=== PATIENT | male | born 1945 | race Caucasian/White ===

== ENCOUNTER 2016-08-01 10:21 | Outpatient (CLI) | payer MEDICARE, OTHER | END 2016-08-01 10:22 | disposition home or self-care (01) | DX: K50.114 Crohn's disease of large intestine with abscess (principal) ==

== ENCOUNTER 2016-09-05 10:44 | Outpatient (CLI) | payer MEDICARE, OTHER | END 2016-09-05 10:45 | disposition home or self-care (01) | DX: K50.90 Crohn's disease, unspecified, without complications (principal) ==

== ENCOUNTER 2016-09-11 09:49 | Emergency (ER) | payer MEDICARE, OTHER | END 2016-09-11 17:30 | disposition home or self-care (01) | DX: R06.00 Dyspnea, unspecified (principal); R07.9 Chest pain, unspecified; M79.622 Pain in left upper arm; R03.0 Elevated blood-pressure reading, without diagnosis of hypertension; J45.909 Unspecified asthma, uncomplicated; K50.90 Crohn's disease, unspecified, without complications; Z79.82 Long term (current) use of aspirin ==

== ENCOUNTER 2016-09-24 09:16 | Day surgery (SDC) | payer MEDICARE, OTHER ==
[2016-09-24] MEDS ORDERED: LACTATED RINGERS 1,000 ML IV ONE ×2 (09:21→10:38)
[2016-09-24] MEDS ORDERED: SIMETHICONE 40 MG/0.6 ML 30 ML BOTTLE PO ONE (10:38)
[2016-09-24] MEDS ORDERED: MIDAZOLAM 2 MG/2 ML VIAL IVP ONE (11:40)
[2016-09-24] MEDS ORDERED: fentaNYL 100 MCG PATCH TOP ONE (11:40)
== END 2016-09-24 09:17 | disposition home or self-care (01) ==
PROC: 0DBE8ZX Excision of Large Intestine, Via Natural or Artificial Opening Endoscopic, Diagnostic (ICD-10-PCS; principal; 2016-09-24 10:30)
DX: K52.89 Other specified noninfective gastroenteritis and colitis (principal); K63.3 Ulcer of intestine; K57.30 Diverticulosis of large intestine without perforation or abscess without bleeding; Z86.010 Personal history of colon polyps
CPT/HCPCS: 45380; A9270; J7120

== ENCOUNTER 2016-10-01 12:33 | Outpatient (CLI) | payer MEDICARE, OTHER | END 2016-10-01 12:34 | disposition home or self-care (01) | DX: R06.00 Dyspnea, unspecified (principal) ==

== ENCOUNTER 2016-12-12 11:24 | Outpatient (CLI) | payer MEDICARE, OTHER ==
[2016-12-12 11:57] LABS: BASOPHILS % (AUTO) 0.3 %; EOSINOPHILS # (AUTO) 0.3 10^3/uL (0.0-0.7); EOSINOPHILS % (AUTO) 3.5 %; HCT - HEMATOCRIT 38.2 % (42.0-52.0); HGB - HEMOGLOBIN 12.9 g/dL (14.0-18.0); LYMPHOCYTES # (AUTO) 2.6 10^3/uL (1.5-3.5); MEAN CORPUSCULAR HEMOGLOBIN 31.1 pg (27.0-31.0); MEAN CORPUSCULAR HGB CONC 33.8 g/dL (32.0-36.0); MEAN CORPUSCULAR VOLUME 92.1 fL (80.0-94.0); MEAN PLATELET VOLUME 8.5 fL (7.4-11.4); MONOCYTES % (AUTO) 13.1 %; NEUTROPHILS # (AUTO) 3.6 10^3/uL (1.5-6.6); NEUTROPHILS % (AUTO) 48.1 %; RED BLOOD COUNT 4.15 10^6/uL (4.70-6.10); RED CELL DISTRIBUTION WIDTH 15.6 % (12.0-15.0); UNCORRECTED WHITE BLOOD COUNT 7.4 x10^3/uL; WHITE BLOOD COUNT 7.4 x10^3/uL (4.8-10.8)
[2016-12-12 12:12] LABS: ALBUMIN/GLOBULIN RATIO 1.2 (1.0-2.2); BILIRUBIN,TOTAL 0.7 mg/dL (0.2-1.0); BUN - BLOOD UREA NITROGEN 24 mg/dL (6-20); CARBON DIOXIDE - CO2 28 mmol/L (21-32); CHLORIDE 104 mmol/L (101-111); GFR - MDRD 73 (>89); GLUCOSE 84 mg/dL (70-100); POTASSIUM 4.5 mmol/L (3.5-5.0); SODIUM 140 mmol/L (135-145); TOTAL PROTEIN 7.6 g/dL (6.7-8.2)
== END 2016-12-12 11:25 | disposition home or self-care (01) ==
LOC: LAB 11:24
PROVIDERS: ATTEND Internal Medicine
DX: K50.114 Crohn's disease of large intestine with abscess (principal)
CPT/HCPCS: 36415; 80053; 85025; 85651; 86140

== ENCOUNTER 2017-01-19 15:51 | Outpatient (CLI) | payer MEDICARE, OTHER ==
[2017-01-19 16:25] LABS: BASOPHILS % (AUTO) 0.3 %; EOSINOPHILS # (AUTO) 0.3 10^3/uL (0.0-0.7); EOSINOPHILS % (AUTO) 4.3 %; HCT - HEMATOCRIT 36.1 % (42.0-52.0); HGB - HEMOGLOBIN 12.1 g/dL (14.0-18.0); LYMPHOCYTES # (AUTO) 2.3 10^3/uL (1.5-3.5); LYMPHOCYTES % (AUTO) 30.7 %; MEAN CORPUSCULAR HEMOGLOBIN 31.6 pg (27.0-31.0); MEAN CORPUSCULAR HGB CONC 33.5 g/dL (32.0-36.0); MEAN CORPUSCULAR VOLUME 94.4 fL (80.0-94.0); MEAN PLATELET VOLUME 7.3 fL (7.4-11.4); MONOCYTES # (AUTO) 1.1 10^3/uL (0.0-1.0); MONOCYTES % (AUTO) 14.6 %; NEUTROPHILS # (AUTO) 3.8 10^3/uL (1.5-6.6); NEUTROPHILS % (AUTO) 50.1 %; NUCLEATED RED BLOOD CELLS AUTO 0.1 /100WBC; RED BLOOD COUNT 3.83 10^6/uL (4.70-6.10); RED CELL DISTRIBUTION WIDTH 17.6 % (12.0-15.0); UNCORRECTED WHITE BLOOD COUNT 7.6 x10^3/uL; WHITE BLOOD COUNT 7.6 x10^3/uL (4.8-10.8)
[2017-01-19 17:07] LABS: ALBUMIN/GLOBULIN RATIO 1.1 (1.0-2.2); BILIRUBIN,TOTAL 0.6 mg/dL (0.2-1.0); BUN - BLOOD UREA NITROGEN 21 mg/dL (6-20); CALCIUM 9.4 mg/dL (8.5-10.3); CARBON DIOXIDE - CO2 25 mmol/L (21-32); CHLORIDE 104 mmol/L (101-111); GFR - MDRD 73 (>89); GLUCOSE 103 mg/dL (70-100); POTASSIUM 3.9 mmol/L (3.5-5.0); SODIUM 137 mmol/L (135-145); TOTAL PROTEIN 6.8 g/dL (6.7-8.2)
== END 2017-01-19 15:52 | disposition home or self-care (01) ==
LOC: LAB 15:51
PROVIDERS: ATTEND Internal Medicine
DX: K50.114 Crohn's disease of large intestine with abscess (principal)
CPT/HCPCS: 36415; 80053; 85025; 85651; 86140

== ENCOUNTER 2017-02-23 18:18 | Emergency (ER) | payer MEDICARE, OTHER ==
[2017-02-23 19:10] LABS: BASOPHILS # (AUTO) 0.1 10^3/uL (0.0-0.1); BASOPHILS % (AUTO) 1.1 %; EOSINOPHILS # (AUTO) 0.3 10^3/uL (0.0-0.7); EOSINOPHILS % (AUTO) 3.7 %; HCT - HEMATOCRIT 36.9 % (42.0-52.0); HGB - HEMOGLOBIN 12.2 g/dL (14.0-18.0); LYMPHOCYTES # (AUTO) 2.3 10^3/uL (1.5-3.5); LYMPHOCYTES % (AUTO) 29.7 %; MEAN CORPUSCULAR HGB CONC 33.1 g/dL (32.0-36.0); MEAN CORPUSCULAR VOLUME 96.8 fL (80.0-94.0); MONOCYTES # (AUTO) 1.2 10^3/uL (0.0-1.0); MONOCYTES % (AUTO) 15.6 %; NEUTROPHILS # (AUTO) 3.9 10^3/uL (1.5-6.6); NEUTROPHILS % (AUTO) 49.9 %; RED BLOOD COUNT 3.82 10^6/uL (4.70-6.10); RED CELL DISTRIBUTION WIDTH 16.9 % (12.0-15.0); UNCORRECTED WHITE BLOOD COUNT 7.8 x10^3/uL; WHITE BLOOD COUNT 7.8 x10^3/uL (4.8-10.8)
[2017-02-23 19:18] LABS: PT - PROTHROMBIN TIME 11.3 secs (9.9-12.6)
[2017-02-23 19:22] LABS: BILIRUBIN,TOTAL 0.5 mg/dL (0.2-1.0); CALCIUM 9.7 mg/dL (8.5-10.3); CREATININE 1.1 mg/dL (0.6-1.2); POTASSIUM 3.9 mmol/L (3.5-5.0); TOTAL PROTEIN 7.4 g/dL (6.7-8.2)
--- NOTE | 2017-02-23 19:24 | ED Physician Documentation ---
PD HPI ABD PAIN - Stated complaint Stated Complaint: MALE - Chief complaint Chief Complaint: Abd Pain - History obtained from History obtained from: Patient, Family () - History of Present Illness Timing - onset: Other (71 yo with long H/O chrons dz. Abscess with partial colectomy in the past. Last c-scope 09/24/16 with scattered small ulcers. Today with single episode of BRBPR after some burning L abd pain. He does feel weak/ dizzy today. Has had bad rxn to steroid in the past. His GI is [facility] at and Dr Rodriguez at [facility].) Review of Systems Constitutional: reports: Reviewed and negative Nose: reports: Reviewed and negative Throat: reports: Reviewed and negative GI: reports: Abdominal Pain, Bloody / black stool. denies: Nausea, Vomiting, Constipation, Diarrhea PD PAST MEDICAL HISTORY - Past Medical History Cardiovascular: High cholesterol Respiratory: Asthma Neuro: None Endocrine/Autoimmune: None GI: GERD, Crohn's disease : None HEENT: None Psych: None Musculoskeletal: None Derm: Psoriasis - Past Surgical History Past Surgical History: Yes General: Appendectomy, Bowel surgery, Colonoscopy Ortho: Shoulder arthroplasty, Arthroscopic surgery - Present Medications Home Medications: Ambulatory Orders Medication Instructions Recorded Confirmed Cholecalciferol (Vitamin D3) 1,000 unit PO BID 11/26/12 02/23/17 [Vitamin D] Multivitamin [Multi-Day Vitamins] 1 tab PO DAILY 11/26/12 02/23/17 Ascorbate Calcium/Bioflavonoid 2 tab PO DAILY 07/03/15 02/23/17 [Janet-C 1,000 mg Tablet] Fexofenadine HCl [Ml Allergy] 180 mg PO DAILY PRN 07/03/15 02/23/17 Folic Acid 1 mg PO DAILY 07/03/15 02/23/17 Magnesium Oxide [Magnesium] 750 mg PO BID 07/03/15 02/23/17 [place]-3/Dha/Epa/Fish Oil [Fish Oil 2 cap PO DAILY 07/03/15 02/23/17 1,000 mg Softgel] Certolizumab Pegol [Cimzia] 200 mg SQ Q14D 01/25/16 02/23/17 Methotrexate 5 mg PO Q3D 03/21/16 02/23/17 Aspirin [Aspir-Low] 81 mg PO DAILY PM 06/12/16 02/23/17 raNITIdine [Zantac] 150 mg PO BID #60 tablet 09/11/16 02/23/17 Dm/PE/Acetaminophen/Doxylamine 240 ml PO ONCE 09/23/16 02/23/17 [Tylenol Cold M-S Nighttime Liq] Mesalamine [Delzicol] 1,200 mg PO BID 02/23/17 02/23/17 - Allergies Allergies/Adverse Reactions: Allergies Allergy/AdvReac Type Severity Reaction Status Date / Time hydrocodone [Hydrocodone] Allergy Hives Verified 02/23/17 18:32 Sulfa (Sulfonamide Allergy Hives Verified 02/23/17 18:32 Antibiotics) hydromorphone HCl * AdvReac Respiratory Verified 02/23/17 18:32 [From Dilaudid] simvastatin AdvReac weakness, Verified 02/23/17 18:32 can't walk - Social History Does the pt smoke?: No Smoking Status: Never smoker Does the pt drink ETOH?: No Does the pt have substance abuse?: No - Immunizations Immunizations are current?: Yes - POLST Patient has POLST: Yes PD ED PE NORMAL - Vitals Vital signs reviewed: Yes - General General: Alert and oriented X 3, No acute distress - Abdomen Abdomen: Normal bowel sounds, Soft, Non tender - Neuro Neuro: Alert and oriented X 3, Normal speech - Psych Psych: Normal mood, Normal affect Results - Vitals Vitals: Vital Signs - 24 hr 02/23/17 02/23/17 18:27 19:23 Temperature 36.9 C Heart Rate 91 86 Respiratory 19 16 Rate Blood Pressure 141/84 H 177/85 H O2 Saturation 95 96 Oxygen O2 Source Room air - Labs Labs: Laboratory Tests 02/23/17 02/23/17 02/23/17 18:55 18:55 18:55 WBC 7.8 RBC 3.82 L Hgb 12.2 L Hct 36.9 L MCV 96.8 H MCH 32.0 H MCHC 33.1 RDW 16.9 H Plt Count 344 MPV 7.0 L Neut # 3.9 Lymph # 2.3 [place] # 1.2 H Eos # 0.3 Baso # 0.1 Absolute Nucleated RBC 0.00 Nucleated RBCs 0.0 PT 11.3 INR 1.0 Sodium 138 Potassium 3.9 Chloride 102 Carbon Dioxide 26 Anion Gap 10.0 BUN 23 H Creatinine 1.1 Estimated GFR (MDRD) 66 L Glucose 95 Calcium 9.7 Total Bilirubin 0.5 AST 24 ALT 25 Alkaline Phosphatase 42 Total Protein 7.4 Albumin 3.7 Globulin 3.7 Albumin/Globulin Ratio 1.0 Lipase 27 Blood Type Antibody Screen 02/23/17 18:55 WBC RBC Hgb Hct MCV MCH MCHC RDW Plt Count MPV Neut # Lymph # [place] # Eos # Baso # Absolute Nucleated RBC Nucleated RBCs PT INR Sodium Potassium Chloride Carbon Dioxide Anion Gap BUN Creatinine Estimated GFR (MDRD) Glucose Calcium Total Bilirubin AST ALT Alkaline Phosphatase Total Protein Albumin Globulin Albumin/Globulin Ratio Lipase Blood Type O POSITIVE Antibody Screen NEGATIVE PD MEDICAL DECISION MAKING - ED course ED course: 71-year-old with with history of Crohn's presents after single large episode of hematochezia, he was hemodynamically stable. His H&H is at his baseline. Case discussed by phone with Dr. Kain Chand at [facility], on-call for his graves registration specialist who felt it was more likely to be a diverticular bleed than ulcer, recommended discharge at this time given hemodynamic stability and stable H&H but he is to return for further bleeding. Patient was comfortable with the plan, he was offered observation for serial H&H which he declined. Departure - Departure Disposition: 01 Home, Self Care Clinical Impression: Lower GI bleed Condition: Good Record reviewed to determine appropriate education?: Yes Instructions: ED Hematochezia Stable Comments: Return for further bleeding. Otherwise follow-up with your graves registration specialist at your earliest convenience. Your blood pressure was elevated today on check into the emergency department. This does not mean that you have hypertension, it is a common phenomenon to come to the emergency department and have elevated blood pressure. I recommend that she see her primary care physician within the week to have it rechecked when you are feeling better.
[2017-02-23 20:27] VITALS: BP 161/67
== END 2017-02-23 20:44 | disposition home or self-care (01) ==
LOC: ED 18:18
DX: K92.1 Melena (principal); R03.0 Elevated blood-pressure reading, without diagnosis of hypertension; K50.90 Crohn's disease, unspecified, without complications; K21.9 Gastro-esophageal reflux disease without esophagitis; E78.00 Pure hypercholesterolemia, unspecified; J45.909 Unspecified asthma, uncomplicated; Z79.82 Long term (current) use of aspirin
CPT/HCPCS: 36415; 80053; 83690; 85025; 85610; 86850; 86900; 86901; 99283

== ENCOUNTER 2017-02-26 10:30 | Outpatient (CLI) | payer MEDICARE, OTHER ==
[2017-02-26 11:27] LABS: BASOPHILS % (AUTO) 1.3 %; EOSINOPHILS % (AUTO) 3.4 %; HCT - HEMATOCRIT 34.3 % (42.0-52.0); HGB - HEMOGLOBIN 11.5 g/dL (14.0-18.0); MEAN CORPUSCULAR HEMOGLOBIN 32.1 pg (27.0-31.0); MEAN CORPUSCULAR HGB CONC 33.4 g/dL (32.0-36.0); MEAN CORPUSCULAR VOLUME 96.1 fL (80.0-94.0); MONOCYTES % (AUTO) 18.1 %; NEUTROPHILS % (AUTO) 52.2 %; RED BLOOD COUNT 3.57 10^6/uL (4.70-6.10); RED CELL DISTRIBUTION WIDTH 16.9 % (12.0-15.0); UNCORRECTED WHITE BLOOD COUNT 8.4 x10^3/uL; WHITE BLOOD COUNT 7.8 x10^3/uL (4.8-10.8)
[2017-02-26 11:34] LABS: BILIRUBIN,TOTAL 0.5 mg/dL (0.2-1.0); CALCIUM 9.4 mg/dL (8.5-10.3); CREATININE 1.1 mg/dL (0.6-1.2); POTASSIUM 4.3 mmol/L (3.5-5.0); TOTAL PROTEIN 6.9 g/dL (6.7-8.2)
[2017-02-26 12:08] LABS: BAND NEUTROPHILS % (MANUAL) 1 %; BASOPHILS % (MANUAL) 1 %; EOSINOPHILS % (MANUAL) 3 %; LYMPHOCYTES % (MANUAL) 28 %; NEUTROPHILS % (MANUAL) 52 %; TOTAL CELLS COUNTED 100
[2017-02-26 12:09] LABS: NP AUTO DIFFERENTIAL? YES; NP MAN DIFFERENTIAL? NO
[2017-02-27 13:16] LABS: HEPATITIS A AB TOTAL(IMMUNITY) NON-REACTIVE (NON-REACTIVE)
[2017-02-27 14:17] LABS: TEST RESULT REPORT (())
== END 2017-02-26 10:31 | disposition home or self-care (01) ==
LOC: LAB 10:30
PROVIDERS: ATTEND Internal Medicine
DX: K50.90 Crohn's disease, unspecified, without complications (principal)
CPT/HCPCS: 36415; 80053; 81599; 85025; 85651; 86140; 86317; 86704; 86705; 86708

== ENCOUNTER 2017-04-01 12:59 | Day surgery (SDC) | payer MEDICARE, OTHER ==
[2017-04-01] MEDS ORDERED: LACTATED RINGERS 1,000 ML IV ONE ×2 (13:11→15:12)
[2017-04-01] MEDS ORDERED: fentaNYL 100 MCG/2 ML VIAL IVP ONE (14:45)
[2017-04-01] MEDS ORDERED: MIDAZOLAM 2 MG/2 ML VIAL IVP ONE (14:45)
--- NOTE | 2017-04-01 16:01 | PROCEDURE REPORT ---
DATE OF PROCEDURE: 04/01/2017 00:00:00 PROCEDURE PERFORMED: Colonoscopy. ENDOSCOPIST: Maranda Foote MD PRIMARY CARE PHYSICIAN: Vidal Varela MD INDICATION: Complicated Crohn disease status post transverse colon resection and with history of GI bleeding felt to be from out of control Crohn disease. Currently on Cimzia and methotrexate and mesalamine. PREMEDICATIONS: Fentanyl 100 mcg, Versed 3 mg IV titration. DESCRIPTION OF PROCEDURE: After informed consent was obtained, the patient was placed in the left lateral decubitus position. Video colonoscope was placed in the rectum, slowly advanced to the cecum. On slow withdrawal, mucosa was carefully examined. The scope was removed. The patient tolerated the procedure well. BLOOD LOSS: None. COMPLICATIONS: None. FINDINGS: Superficial ulceration present at the IC valve. There were also deep ulcerations from the anastomosis that appeared to be at [address] to 25 cm. This included a 20cm long, deep ulceration the entire length. Scattered ulcerations were present from 25 cm to the rectum. The right colon and proximal transverse colon were relatively spared. No biopsies were taken. The patient has still not [facility] [employer]. He is to do this immediately and call me in 1-2 weeks so we can talk about changing his medications. JOB #: [id number] EXT JOB #:[id number] MTDD
[2017-04-01 16:06] VITALS: BP 144/77
== END 2017-04-01 13:00 | disposition home or self-care (01) ==
LOC: SDS 12:59
PROVIDERS: ATTEND Internal Medicine Gastroenterology
PROC: 0DJD8ZZ Inspection of Lower Intestinal Tract, Via Natural or Artificial Opening Endoscopic (ICD-10-PCS; principal; 2017-04-01 14:00)
DX: K63.3 Ulcer of intestine (principal); Z98.0 Intestinal bypass and anastomosis status; K50.919 Crohn's disease, unspecified, with unspecified complications; Z79.899 Other long term (current) drug therapy; J45.909 Unspecified asthma, uncomplicated; L40.9 Psoriasis, unspecified
CPT/HCPCS: 45378; J7120

== ENCOUNTER 2017-04-03 10:34 | Outpatient (CLI) | payer MEDICARE, OTHER ==
[2017-04-03 11:01] LABS: BASOPHILS # (AUTO) 0.1 10^3/uL (0.0-0.1); BASOPHILS % (AUTO) 1.2 %; EOSINOPHILS # (AUTO) 0.3 10^3/uL (0.0-0.7); EOSINOPHILS % (AUTO) 3.9 %; HCT - HEMATOCRIT 35.3 % (42.0-52.0); HGB - HEMOGLOBIN 11.9 g/dL (14.0-18.0); LYMPHOCYTES # (AUTO) 2.1 10^3/uL (1.5-3.5); LYMPHOCYTES % (AUTO) 26.3 %; MEAN CORPUSCULAR HEMOGLOBIN 31.9 pg (27.0-31.0); MEAN CORPUSCULAR HGB CONC 33.7 g/dL (32.0-36.0); MEAN CORPUSCULAR VOLUME 94.9 fL (80.0-94.0); MEAN PLATELET VOLUME 6.9 fL (7.4-11.4); MONOCYTES # (AUTO) 1.1 10^3/uL (0.0-1.0); MONOCYTES % (AUTO) 14.6 %; NEUTROPHILS # (AUTO) 4.2 10^3/uL (1.5-6.6); RED BLOOD COUNT 3.72 10^6/uL (4.70-6.10); RED CELL DISTRIBUTION WIDTH 16.7 % (12.0-15.0); UNCORRECTED WHITE BLOOD COUNT 7.8 x10^3/uL; WHITE BLOOD COUNT 7.8 x10^3/uL (4.8-10.8)
[2017-04-03 11:19] LABS: ALBUMIN/GLOBULIN RATIO 1.1 (1.0-2.2); BILIRUBIN,TOTAL 0.5 mg/dL (0.2-1.0); BUN - BLOOD UREA NITROGEN 14 mg/dL (6-20); CALCIUM 9.8 mg/dL (8.5-10.3); CARBON DIOXIDE - CO2 25 mmol/L (21-32); CHLORIDE 103 mmol/L (101-111); GFR - MDRD 73 (>89); GLUCOSE 110 mg/dL (70-100); SODIUM 136 mmol/L (135-145)
== END 2017-04-03 10:35 | disposition home or self-care (01) ==
LOC: LAB 10:34
PROVIDERS: ATTEND Internal Medicine
DX: K50.90 Crohn's disease, unspecified, without complications (principal)
CPT/HCPCS: 36415; 80053; 85025; 85651; 86140

== ENCOUNTER 2017-06-02 22:05 | Observation (INO) | payer MEDICARE, OTHER ==
[2017-06-02] MEDS ORDERED: SODIUM CHLORIDE 0.9% 1,000 ML IV ONE (22:22)
[2017-06-02 22:44] LABS: BASOPHILS # (AUTO) 0.1 10^3/uL (0.0-0.1); BASOPHILS % (AUTO) 0.5 %; EOSINOPHILS # (AUTO) 0.4 10^3/uL (0.0-0.7); EOSINOPHILS % (AUTO) 4.1 %; HCT - HEMATOCRIT 32.5 % (42.0-52.0); HGB - HEMOGLOBIN 10.7 g/dL (14.0-18.0); LYMPHOCYTES # (AUTO) 2.8 10^3/uL (1.5-3.5); LYMPHOCYTES % (AUTO) 29.2 %; MEAN CORPUSCULAR HEMOGLOBIN 31.6 pg (27.0-31.0); MEAN CORPUSCULAR VOLUME 95.7 fL (80.0-94.0); MEAN PLATELET VOLUME 7.4 fL (7.4-11.4); MONOCYTES # (AUTO) 1.3 10^3/uL (0.0-1.0); MONOCYTES % (AUTO) 13.6 %; NEUTROPHILS % (AUTO) 52.6 %; RED CELL DISTRIBUTION WIDTH 17.5 % (12.0-15.0); UNCORRECTED WHITE BLOOD COUNT 9.4 x10^3/uL; WHITE BLOOD COUNT 9.4 x10^3/uL (4.8-10.8)
[2017-06-02 22:57] LABS: ALBUMIN/GLOBULIN RATIO 0.9 (1.0-2.2); BILIRUBIN,TOTAL 0.4 mg/dL (0.2-1.0); CREATININE 1.3 mg/dL (0.6-1.2); MAGNESIUM 2.3 mg/dL (1.7-2.8); POTASSIUM 4.2 mmol/L (3.5-5.0); TOTAL PROTEIN 6.8 g/dL (6.7-8.2)
--- NOTE | 2017-06-02 23:17 | ED Physician Documentation ---
PD HPI GI BLEED - Stated complaint Stated Complaint: GI BLEED - Chief complaint Chief Complaint: Abd Pain - History obtained from History obtained from: Patient, Family - History of Present Illness Timing - onset: Enter time (2029), Today Timing - duration: Minutes Timing - details: Abrupt onset, Still present Associated symptoms: BRBPR Contributing factors: Other (chrons disease) Improved by: Laying still Similar symptoms before: Diagnosis (lower GI bleeding from chrons disease) Recently seen: Other ([facility] for stelara) - Additional information Additional information: This 71-year-old male has a 17 year history of Crohn's disease complicated by a transverse colon resection and abscess as well as GI bleeding, Has developed acute bleeding this evening and he has had 3 episodes of bright red blood per rectum. He has no pain associated with this and the bleeding is more than what he had back in January of this year. He indicates that he has had episodes of bleeding 4 times. He has had to be admitted to [facility] for observation once and to [facility] where he required transfusion and transfer to [facility]. He was seen earlier this year in January for GI bleeding with an episode of 1 bleed his counts were baseline and he had no further bleeding. He refused admission at that time. Today he is more concerned in that he has had 3 episodes of bleeding and he feels weak. He has been stable on Humira for years and recently this is stopped working and 3 days ago he had his first infusion of Stelara. He had his last scoping done here in mid March. Review of Systems Constitutional: reports: Fatigue. denies: Fever, Chills, Myalgias Eyes: denies: Decreased vision Ears: denies: Ear pain Nose: denies: Congestion Throat: denies: Sore throat Cardiac: denies: Chest pain / pressure, Palpitations Respiratory: denies: Dyspnea, Cough GI: reports: Bloody / black stool. denies: Abdominal Pain, Nausea, Vomiting, Constipation, Diarrhea : denies: Dysuria, Frequency Skin: denies: Rash Neurologic: reports: Generalized weakness. denies: Focal weakness, Numbness PD PAST MEDICAL HISTORY - Past Medical History Past Medical History: Yes Cardiovascular: High cholesterol Respiratory: Asthma Neuro: None Endocrine/Autoimmune: None GI: GI bleed, Crohn's disease : None HEENT: None Psych: None Musculoskeletal: None Derm: Psoriasis - Past Surgical History Past Surgical History: Yes General: Appendectomy, Bowel surgery, Colonoscopy Ortho: Shoulder arthroplasty, Arthroscopic surgery - Present Medications Home Medications: Ambulatory Orders Medication Instructions Recorded Confirmed Multivitamin [Multi-Day Vitamins] 1 tab PO DAILY 11/26/12 06/02/17 Ascorbate Calcium/Bioflavonoid 2,000 mg PO DAILY 07/03/15 05/29/17 [Janet-C 1,000 mg Tablet] Fexofenadine HCl [Ml Allergy] 180 mg PO DAILY PRN 07/03/15 06/02/17 Folic Acid 800 mcg PO DAILY 07/03/15 06/02/17 Magnesium Oxide [Magnesium] 1 tab PO BID 07/03/15 06/02/17 [place]-3/Dha/Epa/Fish Oil [Fish Oil 2 cap PO DAILY 07/03/15 06/02/17 1,000 mg Softgel] Methotrexate 2.5 mg PO Q3D 03/21/16 06/02/17 Aspirin [Aspir-Low] 81 mg PO DAILY PM 06/12/16 06/02/17 Certolizumab [Cimzia] 200 mg SUBQ ONCE 05/29/17 06/02/17 Chlorpheniramine Maleate [Allergy 4 mg PO DAILY 05/29/17 06/02/17 4-Hour] L. Acidophilus/Pectin, [place] 2 each PO BID 05/29/17 06/02/17 [Acidophilus Capsule] Phenylephrine HCl [Nasal 10 mg PO BID 05/29/17 06/02/17 Decongestant PE] B12/Levomefolate Calcium/B-6 1 each PO DAILY 06/02/17 06/02/17 [Foltx Tablet] Calcium Carbonate [Tums (Calcium 500 mg PO QID 06/02/17 06/02/17 Carbonate 500mg)] D3/Folic Acid/Collagen,Hydroly 1,000 units PO BID 06/02/17 06/02/17 [Cyfolex Capsule] Mesalamine [Asacol Hd] 400 mg PO Q6HR 06/02/17 06/02/17 Potassium Gluconate 595 mg PO BID 06/02/17 06/02/17 raNITIdine [Zantac] 150 mg PO DAILY 06/02/17 06/02/17 - Allergies Allergies/Adverse Reactions: Allergies Allergy/AdvReac Type Severity Reaction Status Date / Time hydrocodone [Hydrocodone] Allergy Hives Verified 06/02/17 22:19 Sulfa (Sulfonamide Allergy Hives Verified 06/02/17 22:19 Antibiotics) hydromorphone HCl * AdvReac Respiratory Verified 06/02/17 22:19 [From Dilaudid] simvastatin AdvReac weakness, Verified 06/02/17 22:19 can't walk - Social History Does the pt smoke?: No Smoking Status: Never smoker Does the pt drink ETOH?: No Does the pt have substance abuse?: No - Immunizations Immunizations are current?: Yes - POLST Patient has POLST: No PD ED PE NORMAL - Vitals Vital signs reviewed: Yes (hypertensive) - General General: Alert and oriented X 3, No acute distress, Well developed/nourished, Other (pale appearing ) - HEENT HEENT: Atraumatic, PERRL, EOMI - Neck Neck: Supple, no meningeal sign - Cardiac Cardiac: RRR, No murmur - Respiratory Respiratory: No respiratory distress, Clear bilaterally - Abdomen Abdomen: Soft, Non tender, Other (borgorigmy is present) - Back Back: No CVA TTP, No spinal TTP - Derm Derm: Warm and dry, No rash, Other (pale ) - Neuro Neuro: Alert and oriented X 3, No motor deficit, No sensory deficit, Normal speech Eye Opening: Spontaneous Motor: Obeys Commands Verbal: Oriented GCS Score: 15 - Psych Psych: Normal mood, Normal affect Results - Vitals Vitals: Vital Signs - 24 hr 06/02/17 06/02/17 06/03/17 22:15 23:52 01:12 Temperature 36.2 C L Heart Rate 88 76 82 Respiratory 16 20 17 Rate Blood Pressure 162/77 H 123/67 146/74 H O2 Saturation 96 97 94 Oxygen O2 Source Room air - Labs Labs: Laboratory Tests 06/02/17 06/02/17 06/02/17 22:24 22:24 22:24 WBC 9.4 RBC 3.40 L Hgb 10.7 L Hct 32.5 L MCV 95.7 H MCH 31.6 H MCHC 33.0 RDW 17.5 H Plt Count 346 MPV 7.4 Neut # 5.0 Lymph # 2.8 [place] # 1.3 H Eos # 0.4 Baso # 0.1 Absolute Nucleated RBC 0.00 Nucleated RBC % 0.0 Sodium 137 Potassium 4.2 Chloride 103 Carbon Dioxide 24 Anion Gap 10.0 BUN 28 H Creatinine 1.3 H Estimated GFR (MDRD) 54 L Glucose 139 H Calcium 9.0 Magnesium 2.3 Total Bilirubin 0.4 AST 24 ALT 16 Alkaline Phosphatase 39 L Total Protein 6.8 Albumin 3.3 Globulin 3.5 Albumin/Globulin Ratio 0.9 L Lipase 25 Blood Type O POSITIVE Antibody Screen NEGATIVE Crossmatch IS Only See Detail PD MEDICAL DECISION MAKING - ED course Complexity details: reviewed old records, reviewed results, re-evaluated patient , considered differential, d/w patient, d/w family ED course: 71-year-old male with a history of Crohn's disease who has had prior GI bleeding has another GI bleed and his hematocrit today is 32.5 which was close to his baseline but about 3 points under.Today he is amenable to admission to the hospital. Departure - Departure Disposition: ED Place in Observation Clinical Impression: Lower GI bleed Crohns disease Qualifiers: Gastrointestinal tract location: unspecified location Digestive disease complication type: with rectal bleeding Qualified Code(s): K50.911 - Crohn's disease, unspecified, with rectal bleeding Discharge Date/Time: 06/03/17 02:10
[2017-06-03] MEDS ORDERED: ZOLPIDEM 5 MG TABLET PO PRN (01:46)
[2017-06-03] MEDS ORDERED: ONDANSETRON 4 MG/2 ML VIAL IVP PRN (01:46)
[2017-06-03] MEDS ORDERED: FEXOFENADINE 60 MG TABLET PO PRN (01:51)
[2017-06-03] MEDS: LACTATED RINGERS 500 ML IV SCH ×2 (03:00→11:22)
[2017-06-03] MEDS: SODIUM CHLORIDE FLUSH 0.9% 10 ML SYRINGE IVP PRN ×2 (03:09→06:23)
[2017-06-03] MEDS ORDERED: MESALAMINE 400 MG CAPSULE PO SCH (06:00)
[2017-06-03] MEDS: SODIUM CHLORIDE FLUSH 0.9% 10 ML SYRINGE IVP SCH ×2 (06:16→14:54)
[2017-06-03 06:27] LABS: HCT - HEMATOCRIT 29.4 % (42.0-52.0); HGB - HEMOGLOBIN 9.9 g/dL (14.0-18.0); MEAN CORPUSCULAR HEMOGLOBIN 32.3 pg (27.0-31.0); MEAN CORPUSCULAR HGB CONC 33.5 g/dL (32.0-36.0); MEAN CORPUSCULAR VOLUME 96.5 fL (80.0-94.0); MEAN PLATELET VOLUME 6.9 fL (7.4-11.4); RED BLOOD COUNT 3.05 10^6/uL (4.70-6.10); RED CELL DISTRIBUTION WIDTH 17.6 % (12.0-15.0); WHITE BLOOD COUNT 8.2 x10^3/uL (4.8-10.8)
[2017-06-03 06:33] LABS: PT - PROTHROMBIN TIME 11.8 secs (9.9-12.6)
[2017-06-03 06:38] LABS: CALCIUM 8.7 mg/dL (8.5-10.3); POTASSIUM 4.1 mmol/L (3.5-5.0)
--- NOTE | 2017-06-03 06:52 | HISTORY & PHYSICAL EXAMINATION ---
DATE OF OBSERVATION: 06/03/2017. CHIEF COMPLAINT: Bright red blood per rectum. HISTORY OF PRESENT ILLNESS: The patient is a 71-year-old white male with longstanding history of Crohn disease, which is usually not well controlled. The patient had multiple bleeding episodes in the past, underwent several colonoscopies, the last one being in 03/2017. The colonoscopy at that time showed large areas of ulcerations in the colon. The patient also reports that he had been on multiple medications. Initially, he was on Remicade and methotrexate. Subsequently, was also on Entyvio and most recently on Cimzia. His disease had not been well controlled. Therefore, 4 days prior to current presentation, he actually was started on Stelara. It is also notable that he underwent bowel resection back in 1999. The patient was brought into the ER by his after he developed GI bleed on the evening of 06/02. The patient was a good historian and described eating dinner around 8 p.m., after which he went to the bathroom and had a small amount of bleeding, passed bright red blood. Subsequently, he had another episode at 9 p.m. and then at 10 p.m. and after the third bleeding episode, he asked his to bring him to the ER. The patient reports that he had similar episodes in the past and sometimes the bleeding self-resolved. However, he also had an episode back in 06/2015, at which time he had a more severe GI bleed and required 5 units of blood transfusion. Upon presentation to the ER, the patient was hemodynamically stable. His blood pressure was 160/70, heart rate in the 80s, respiratory rate was 16, oxygen saturation 96% on room air, temperature 36.2 Celsius. Laboratory showed hemoglobin of 10.7, hematocrit 32.5. Notably, the patient's baseline hemoglobin is between 11-12. In addition, there was new renal failure with a BUN of 28 and creatinine of 1.3. Notably, the patient's baseline creatinine is around 1. In the ER, the patient was not observed with further bleeding episodes. REVIEW OF SYMPTOMS: The patient denied fever. He also denied nausea or vomiting. Regarding abdominal pain, he does have chronic right lower quadrant abdominal discomfort, but reported no recent change. Due to his Crohn disease, he has mild diarrhea and it is not unusual for him to have loose stools with a couple of bowel movements daily. However, he had no recent change in his bowel habits except after 8 p.m. on 06/02 when he started to pass frequent bowel movements with fresh red blood per rectum. On complete 12-point review, there was no additional complaint. PAST MEDICAL HISTORY 1. Longstanding Crohn disease. Please see details listed in the history of present illness. 2. History of neutrophilic dermatosis/Sweet syndrome. 3. Right proximal humerus fracture. 4. Arthritis. 5. Allergic sinusitis. 6. Gastroesophageal reflux. 7. Osteoporosis. 8. History of squamous cell carcinoma/skin cancer, status post excision. 9. Immunocompromised status due to using multiple biologic agents and immunosuppressants for Crohn disease. 10. History of gastrointestinal bleed secondary to Crohn disease. Last colonoscopy was in 03/2017. Primary care physician is Dr. Varela. Motor Bike Mechanic is Dr. Rodriguez at [facility]. OUTPATIENT MEDICATIONS Reviewed per electronic medical record included 1. Ml. 2. Cholestyramine. 3. Fish oil. 4. Acidophilus. 5. Tums. 6. Ranitidine. 7. Magnesium supplements. 8. Potassium gluconate. 9. Multivitamin. 10. B12. 11. Folic acid. 12. Aspirin. 13. Phenylephrine. 14. Vitamin D. 15. Mesalamine. 16. Methotrexate. 17. Vitamin C. ALLERGIES: MULTIPLE ALLERGIES REVIEWED PER ELECTRONIC MEDICAL RECORD. SOCIAL HISTORY: The patient does not smoke. He is retired. He does not drink alcohol. CODE STATUS: FULL CODE. PHYSICAL EXAMINATION VITAL SIGNS: Listed above at history of present illness. GENERAL: The patient is a well-developed male who was not in distress. HEENT: Mild pallor, no jaundice. RESPIRATORY: Clear to auscultation bilaterally without wheezes or crackles. No increased work of breathing. CVS: S1, S2. Regular. No pathologic murmur. ABDOMEN: Slightly distended, nontender, benign. Bowel tones active. LYMPH: No lymphedema. MUSCULOSKELETAL: Atraumatic. NEUROLOGIC: Alert, oriented, nonfocal. PSYCH: Cooperative. ASSESSMENT AND PLAN: The patient is a 71-year-old male with history of complicated Crohn disease, which has not responded well to different therapeutic agents. I think it is safe to say that the patient is likely experiencing a Crohn's flare. Notably, there was recent colonoscopy, which did show extensive inflammatory changes and ulcers throughout the colon. Subsequently, medication change was already done by the patient's security operations center operator and Stelara was started a few days prior to admission. Today , he presents with bright red blood per rectum, which is likely secondary to colonic ulcers and underlying Crohn disease. The GI bleed does not seem hemodynamically significant as the patient remains hemodynamically stable. He does have worsening anemia, however, compared to his baseline blood counts. Additional issue on admission is mild acute renal failure, creatinine increased by 30% from baseline of 1 to 1.3. PLAN AND ORDERS: The patient is getting admitted under observation status. Notably, he experienced no further bleeding episodes during the ER stay, and there are good chances that the bleeding will be self-resolved. To complete the workup, I will order an ESR and coagulation studies, INR. We will follow blood counts and repeat laboratories in the morning. To make sure that this patient is not developing some infectious issue, given his immunocompromised status, I added stool studies including stool culture, C difficile to the workup. Placed a nursing order to keep a stool chart, recording frequencies, amount of blood, diarrhea and amount. For now, the patient does not need transfusion. He will be monitored on telemetry. He will be kept n.p.o. and receive IV hydration overnight. The case was discussed between the ER physician and the covering surgeon. Dr. Norris will be available to do a colonoscopy if needed. However, the patient told me that he would prefer to postpone or avoid colonoscopy if no further bleeding episode happens. Regarding medications, I will continue mesalamine, methotrexate and Stelara could be continued as well. Regarding possible use of steroid, that could be considered as well. However, until stool culture returned, I would probably hold off to steroid use. Likely the daytime physician could discuss with the covering security operations center operator whether they would recommend using a short steroid course. Although the patient is having lower GI bleed, just for safety I will order proton pump inhibitor as well. Deep venous thrombosis prophylaxis with Venodyne boots. FULL CODE. Time spent in the care of this patient was 60 minutes. JOB #: [id number] EXT JOB #:[id number] ADDENDUM: C diff returned positive; treatment plan was adjusted accordingly. JOSSUED
[2017-06-03] MEDS ORDERED: PANTOPRAZOLE 40 MG VIAL IVP SCH (07:00)
[2017-06-03] MEDS: metroNIDAZOLE 500 MG/100 ML 500 MG/100 ML BAG IV SCH ×2 (07:06→12:04)
[2017-06-03] MEDS ORDERED: FOLIC ACID PO SCH (09:00)
[2017-06-03] MEDS ORDERED: FOLIC ACID 1 MG TABLET PO SCH (09:00)
[2017-06-03] MEDS ORDERED: COLLAGEN HYDROLY PO SCH (09:00)
[2017-06-03] MEDS ORDERED: D3 PO SCH (09:00)
[2017-06-03] MEDS ORDERED: MULTIVITAMIN TABLET PO SCH (09:00)
[2017-06-03] MEDS ORDERED: METHOTREXATE 2.5 MG TABLET PO SCH (09:00)
[2017-06-03] MEDS: VANCOMYCIN 125 MG CAPSULE PO SCH ×2 (09:21→14:54)
--- NOTE | 2017-06-03 15:32 | Discharge Plan ---
Discharge Plan Disposition: 01 Home, Self Care Condition: Fair Prescriptions: metroNIDAZOLE [Flagyl] 250 mg PO QID #52 tablet Saccharomyces Boulardii [Florastor] 250 mg PO BID #26 capsule Vancomycin [Vancocin] 250 mg PO QID #52 capsule Diet: Soft ([place] diet, liquids, and advance as diarrhea subsides to your usual diet Avoid dairy products for 2 weeks, except yogurt is OK even now) Activity Restrictions: Activity as Tolerated Shower Restrictions: No Driving Restrictions: No Instruction Topics: Clostridium Difficile Infec Additional Instructions or Follow Up instructions: Contact your Primary Care Provider or Orthopedist if the shoulder problem persists See your doctor in approx. 2 weeks for follow-up after this hospitalization No Smoking: If you smoke, Please STOP! Call for help. Follow-up with: Cali Fernández MD [Primary Care Provider] -
[2017-06-03 16:16] VITALS: BP 133/69
[2017-06-03] MEDS ORDERED: SACCHAROMYCES BOULARDII 250 MG CAPSULE PO SCH (17:00)
--- NOTE | 2017-06-16 09:16 | DISCHARGE SUMMARY ---
DATE OF ADMISSION: 06/03/2017 DATE OF DISCHARGE: 06/03/2017 PLEASE REVIEW BLANK - CANNOT DISCERN/VERIFY IF ZANTAC 150 VS 250 HOSPITAL COURSE: This is a 71-year-old white male with a history of Crohn disease with many flare-ups , lower GI bleeding which was felt to be from his Crohn disease, history of Sweet syndrome (neutrophi lic dermatosis), arthritis, allergic sinusitis, squamous cell CA of the skin, and immunocompromised s tatus due to several immunosuppressants for his Crohn disease. The patient presented with an episode of GI bleeding. He was placed in admission to follow his hemoglobin and evaluate for other causes of heme-positive stools. PROBLEMS 1. Clostridium difficile colitis with diarrhea. His stool sample returned positive for C difficile, a nd he was started on vancomycin and Flagyl p.o. and was discharged with these medications. There were no further episodes of any GI bleeding or difference in his normal stool pattern, and he did not und ergo a colonoscopy here. His last colonoscopy was just 2 months previously, which did show active ulc erations and inflammation consistent with his Crohn disease. 2. Lower gastrointestinal bleed. This is a recurrent presentation for this gentleman. Hemoglobin was stable on the following day, he required no blood transfusions, and his lower GI bleeding subsided. 3. Immunocompromised status. The patient has been on Remicade, methotrexate, Entyvio, and Cimzia, and then 4 days prior to presentation, he was started on Stelara. He was discharged on his same medicati ons. No steroids were begun here. CONDITION AT DISCHARGE: Fair. The patient was still experiencing loose bowel movements, unlike what h e occasionally gets with his Crohn disease. PHYSICAL EXAMINATION AT DISCHARGE VITAL SIGNS: Blood pressure 134/60, pulse 87, sinus rhythm, afebrile. Room air saturation 97%. HEENT: Unremarkable with moist oral mucosa. NECK: Supple, without JVD. CHEST: Clear. CARDIOVASCULAR: Heart sounds normal. ABDOMEN: Soft and mildly tender in both lower quadrants but no guarding or rebound. EXTREMITIES: Without edema. NEUROLOGIC: Neurologically intact. LABORATORY DATA AND IMAGING: Reviewed and as above. MEDICATIONS AT DISCHARGE 1. Tylenol p.r.n. pain. 2. Bioflavinoids 2000 mg p.o. daily. 3. Calcium carbonate 500 mg p.o. q.i.d. 4. Cimzia 200 mg subcutaneously every 2 weeks. 5. Chlorpheniramine maleate p.r.n. allergies. 6. Vitamin D3 at 2000 units daily. 7. Vitamin B12 at 2000 mcg daily. 8. Ml 180 mg daily p.r.n. allergic flare-up. 9. Folic acid 800 mcg p.o. daily. 10. Acidophilus 2 tablets p.o. b.i.d. 11. Magnesium 4 tablets p.o. daily. 12. Delzicol 1600 mg p.o. b.i.d. 13. Flagyl 250 mg p.o. q.i.d. 14. Multivitamin daily. 15. [place] 3 one capsule daily. 16. Nasal decongestant p.r.n. 17. Potassium gluconate 595 mg p.o. b.i.d. 18. Zantac mg p.o. b.i.d. 19. Florastor 250 mg p.o. b.i.d. 20. Vancomycin 250 mg p.o. q.i.d. ALLERGIES 1. HYDROCODONE. 2. SULFA. 3. DILAUDID. 4. SIMVASTATIN. FOLLOWUP: With his PCP and fundraising sale representative. TIME REQUIRED FOR COMPLETION OF THIS DISCHARGE: 30 minutes. JOB #: [id number] EXT JOB #:[id number]
== END 2017-06-03 16:25 | disposition home or self-care (01) ==
LOC: ED 22:05 → OBS 06-03 01:47
PROVIDERS: ADMIT Internal Medicine; ATTEND Internal Medicine
DX: A04.72 Enterocolitis due to Clostridium difficile, not specified as recurrent (principal); K50.111 Crohn's disease of large intestine with rectal bleeding; N17.9 Acute kidney failure, unspecified; D50.0 Iron deficiency anemia secondary to blood loss (chronic); L98.2 Febrile neutrophilic dermatosis [Sweet]; M19.90 Unspecified osteoarthritis, unspecified site; K21.9 Gastro-esophageal reflux disease without esophagitis; J30.9 Allergic rhinitis, unspecified; M81.0 Age-related osteoporosis without current pathological fracture; Z79.899 Other long term (current) drug therapy; Z85.828 Personal history of other malignant neoplasm of skin
CPT/HCPCS: 36415; 80048; 80053; 83690; 83735; 85025; 85027; 85610; 85651; 86850; 86900; 86901; 86920; 87045; 87046; 87493; 96361; 96365; 96366; 96375; 99283; 99285; A9270; G0378; J7120; J8499; 99284

== ENCOUNTER 2017-06-19 08:00 | Outpatient (CLI) | payer MEDICARE, OTHER | END 2017-06-19 08:01 | disposition home or self-care (01) | LOC: LAB.R 08:00 | PROVIDERS: ATTEND Internal Medicine | DX: K50.90 Crohn's disease, unspecified, without complications (principal) | CPT/HCPCS: 87493 ==

== ENCOUNTER 2017-06-29 14:58 | Outpatient (CLI) | payer MEDICARE, OTHER | END 2017-06-29 14:59 | disposition home or self-care (01) | LOC: LAB.R 14:58 | PROVIDERS: ATTEND Internal Medicine | DX: K50.90 Crohn's disease, unspecified, without complications (principal) | CPT/HCPCS: 83993 ==

== ENCOUNTER 2017-07-03 14:09 | Outpatient (CLI) | payer MEDICARE, OTHER ==
[2017-07-03 14:29] LABS: BASOPHILS # (AUTO) 0.1 10^3/uL (0.0-0.1); BASOPHILS % (AUTO) 1.2 %; EOSINOPHILS # (AUTO) 0.4 10^3/uL (0.0-0.7); EOSINOPHILS % (AUTO) 3.9 %; HCT - HEMATOCRIT 30.7 % (42.0-52.0); HGB - HEMOGLOBIN 10.2 g/dL (14.0-18.0); LYMPHOCYTES # (AUTO) 2.2 10^3/uL (1.5-3.5); MEAN CORPUSCULAR HEMOGLOBIN 30.1 pg (27.0-31.0); MEAN CORPUSCULAR HGB CONC 33.3 g/dL (32.0-36.0); MEAN CORPUSCULAR VOLUME 90.3 fL (80.0-94.0); MONOCYTES # (AUTO) 1.2 10^3/uL (0.0-1.0); MONOCYTES % (AUTO) 11.2 %; NEUTROPHILS # (AUTO) 6.7 10^3/uL (1.5-6.6); NEUTROPHILS % (AUTO) 62.7 %; RED CELL DISTRIBUTION WIDTH 17.5 % (12.0-15.0); UNCORRECTED WHITE BLOOD COUNT 10.7 x10^3/uL; WHITE BLOOD COUNT 10.7 x10^3/uL (4.8-10.8)
[2017-07-03 14:56] LABS: ALBUMIN/GLOBULIN RATIO 0.7 (1.0-2.2); BILIRUBIN,TOTAL 0.4 mg/dL (0.2-1.0); POTASSIUM 4.3 mmol/L (3.5-5.0); TOTAL PROTEIN 7.8 g/dL (6.7-8.2)
[2017-07-03 15:01] LABS: IRON 12 ug/dL (45-182); TOTAL IRON BINDING CAPACITY 417 ug/dL (250-450); TRANSFERRIN 298 mg/dL (180-329)
== END 2017-07-03 14:10 | disposition home or self-care (01) ==
LOC: LAB 14:09
PROVIDERS: ATTEND Internal Medicine
DX: K50.90 Crohn's disease, unspecified, without complications (principal); K92.2 Gastrointestinal hemorrhage, unspecified
CPT/HCPCS: 36415; 80053; 82728; 83540; 84466; 85025; 85651

== ENCOUNTER 2017-08-04 08:00 | Outpatient (CLI) | payer MEDICARE, OTHER | END 2017-08-04 08:01 | disposition home or self-care (01) | LOC: LAB.R 08:00 | PROVIDERS: ATTEND Internal Medicine | DX: K50.90 Crohn's disease, unspecified, without complications (principal) | CPT/HCPCS: 83993; 87493 ==

== ENCOUNTER 2017-08-18 14:24 | Outpatient (CLI) | payer MEDICARE, OTHER ==
[2017-08-18 14:51] LABS: BASOPHILS # (AUTO) 0.2 10^3/uL (0.0-0.1); BASOPHILS % (AUTO) 1.8 %; EOSINOPHILS # (AUTO) 0.3 10^3/uL (0.0-0.7); EOSINOPHILS % (AUTO) 3.4 %; HGB - HEMOGLOBIN 10.9 g/dL (14.0-18.0); LYMPHOCYTES # (AUTO) 2.4 10^3/uL (1.5-3.5); LYMPHOCYTES % (AUTO) 25.8 %; MEAN CORPUSCULAR HEMOGLOBIN 28.4 pg (27.0-31.0); MEAN CORPUSCULAR HGB CONC 33.3 g/dL (32.0-36.0); MEAN CORPUSCULAR VOLUME 85.2 fL (80.0-94.0); MEAN PLATELET VOLUME 7.6 fL (7.4-11.4); MONOCYTES # (AUTO) 0.8 10^3/uL (0.0-1.0); MONOCYTES % (AUTO) 8.9 %; NEUTROPHILS # (AUTO) 5.7 10^3/uL (1.5-6.6); NEUTROPHILS % (AUTO) 60.1 %; PLT - PLATELET COUNT 341 10^3/uL (130-450); RED BLOOD COUNT 3.83 10^6/uL (4.70-6.10); RED CELL DISTRIBUTION WIDTH 17.5 % (12.0-15.0); WHITE BLOOD COUNT 9.4 x10^3/uL (4.8-10.8)
[2017-08-18 15:03] LABS: ALBUMIN 3.4 g/dL (3.2-5.5); ALBUMIN/GLOBULIN RATIO 0.8 (1.0-2.2); BILIRUBIN,TOTAL 0.5 mg/dL (0.2-1.0); CALCIUM 9.2 mg/dL (8.5-10.3); TOTAL PROTEIN 7.7 g/dL (6.7-8.2)
== END 2017-08-18 14:25 | disposition home or self-care (01) ==
LOC: LAB 14:24
PROVIDERS: ATTEND Internal Medicine
DX: K50.90 Crohn's disease, unspecified, without complications (principal)
CPT/HCPCS: 36415; 80053; 85025; 85651; 86140

== ENCOUNTER 2017-08-24 12:32 | Outpatient (CLI) | payer MEDICARE, OTHER ==
[~2017-08-24 12:32] MED LIST: GADOBUTROL 10 MMOL/10 ML VIAL ONE
[2017-08-24] MEDS ORDERED: GADOBUTROL 10 MMOL/10 ML VIAL IVP ONE (15:00)
--- NOTE | 2017-08-25 09:17 | MRI Report ---
EXAM: MR ABDOMEN AND PELVIS WITH AND WITHOUT CONTRAST EXAM DATE: 08/24/2017 02:58 PM. CLINICAL HISTORY: CROHNS, LOWER GI BLEED. History of bowel resection and abscess removal. COMPARISON: None. TECHNIQUE: Multiplanar breath-hold T1, T2, and (DWI )sequences obtained through the abdomen and pelvi s on an MR scanner. Images obtained before dynamic scan of the abdomen and pelvis after administratio n of 9 mL Gadavist intravenous contrast, using MR enterographic technique. FINDINGS: Lung Bases: The lung bases are clear. Liver: Diffuse fatty infiltration.. Gallbladder: The gallbladder is partially distended and appears normal with no wall thickening or sto ne. Pancreas: The pancreas appears normal with no mass or ductal dilatation. Spleen: The spleen appears normal. Kidneys and Adrenals: The kidneys appear normal with no mass or hydronephrosis. There are no cysts in the kidneys. The adrenals appear normal. GI Tract and Appendix: The small bowel and colon appear normal with no abnormal enhancement or thicke juan of the bowel wall or dilatation. The mucosal pattern of the duodenum, jejunum, and ileum is unre markable. The terminal ileum is normal. The appendix is not visualized. No abnormal enhancement, flui d collection, or adenopathy in the right lower abdomen. There is no mesenteric adenopathy, abnormal e nhancement, or fistula formation. The visualized rectum is unremarkable. Perianal region was not asse ssed. Retroperitoneum: The retroperitoneal structures appear normal with no mass or lymphadenopathy. Pelvic Organs: Unremarkable. IMPRESSION: Negative MR enterographic exam. [facility] Referring Provider Line: [phone] SITE ID: [id number]
== END 2017-08-24 12:33 | disposition home or self-care (01) ==
LOC: DI 12:32
PROVIDERS: ATTEND Internal Medicine Gastroenterology
DX: K50.90 Crohn's disease, unspecified, without complications (principal); K92.2 Gastrointestinal hemorrhage, unspecified
CPT/HCPCS: 72197; 74183; A9585

== ENCOUNTER 2017-10-22 14:00 | Outpatient (CLI) | payer MEDICARE, OTHER ==
[2017-10-22 14:37] LABS: ALBUMIN 3.7 g/dL (3.2-5.5); ALBUMIN/GLOBULIN RATIO 0.9 (1.0-2.2); ALKALINE PHOSPHATASE 64 IU/L (42-121); ALT ALANINE AMINOTRANSFERASE 39 IU/L (10-60); AST ASPARTATE AMINOTRANSFERASE 40 IU/L (10-42); BASOPHILS # (AUTO) 0.2 10^3/uL (0.0-0.1); BASOPHILS % (AUTO) 2.7 %; BILIRUBIN,TOTAL 0.7 mg/dL (0.2-1.0); BUN - BLOOD UREA NITROGEN 16 mg/dL (6-20); CALCIUM 9.7 mg/dL (8.5-10.3); CARBON DIOXIDE - CO2 26 mmol/L (21-32); CHLORIDE 102 mmol/L (101-111); CRP - C-REACTIVE PROTEIN < 1.0 mg/dL (0-1.0); EOSINOPHILS # (AUTO) 0.3 10^3/uL (0.0-0.7); EOSINOPHILS % (AUTO) 4.8 %; GFR - MDRD 73 (>89); GLUCOSE 136 mg/dL (70-100); HGB - HEMOGLOBIN 11.8 g/dL (14.0-18.0); LYMPHOCYTES # (AUTO) 1.5 10^3/uL (1.5-3.5); LYMPHOCYTES % (AUTO) 25.1 %; MEAN CORPUSCULAR HGB CONC 32.4 g/dL (32.0-36.0); MEAN CORPUSCULAR VOLUME 86.6 fL (80.0-94.0); MEAN PLATELET VOLUME 8.1 fL (7.4-11.4); MONOCYTES # (AUTO) 0.7 10^3/uL (0.0-1.0); MONOCYTES % (AUTO) 12.1 %; NEUTROPHILS # (AUTO) 3.2 10^3/uL (1.5-6.6); NEUTROPHILS % (AUTO) 55.3 %; PLT - PLATELET COUNT 384 10^3/uL (130-450); RED BLOOD COUNT 4.21 10^6/uL (4.70-6.10); RED CELL DISTRIBUTION WIDTH 18.9 % (12.0-15.0); SODIUM 134 mmol/L (135-145); TOTAL PROTEIN 7.6 g/dL (6.7-8.2); WHITE BLOOD COUNT 5.8 x10^3/uL (4.8-10.8)
== END 2017-10-22 14:01 | disposition home or self-care (01) ==
LOC: LAB 14:00
PROVIDERS: ATTEND Internal Medicine
DX: K50.114 Crohn's disease of large intestine with abscess (principal)
CPT/HCPCS: 36415; 80053; 85025; 85651; 86140

== ENCOUNTER 2017-10-25 09:55 | Outpatient (CLI) | payer MEDICARE, OTHER ==
[2017-10-26] MEDS ORDERED: GADOBUTROL 7.5 MMOL/7.5 ML VIAL ONE (12:10)
== END 2017-10-25 09:56 | disposition critical access hospital (66) ==
LOC: EMS 09:55
PROVIDERS: ATTEND Surgery
DX: R47.01 Aphasia (principal)
CPT/HCPCS: A0425; A0427

== ENCOUNTER 2017-10-25 10:06 | Observation (INO) | payer MEDICARE, OTHER ==
[2017-10-25] MEDS ORDERED: SODIUM CHLORIDE 0.9% 1,000 ML IV ONE (10:22)
--- NOTE | 2017-10-25 10:25 | ED Physician Documentation ---
PD HPI FOCAL NEURO - Stated complaint Stated Complaint: POSS STROKE - Chief complaint Chief Complaint: Neuro - History obtained from History obtained from: Patient, Family, EMS - History of Present Illness Timing - onset: Enter time (929), Today Timing - duration: Minutes Timing - details: Abrupt onset, Now resolved Severity of deficit: Moderate Weakness: No: Face, Arm, Hand, Leg, Foot, Right, Left Numbness: No: Face, Arm, Hand, Leg, Foot, Right, Left Associated symptoms: Headache. No: Nausea / vomiting, Seizure, Syncope, Fall, Head injury, Chest pain, Neck pain, Back pain, Fever Contributing factors: negative: Anticoagulated Baseline status: positive: A&OX3, ambulatory, indep Similar symptoms before: Has not had sx before Recently seen: Not recently seen - Additional information Additional information: 71-year-old male with a history of Crohn's disease was in his usual state of health this morning when he awoke again at about 8:00 and he was trying to talk to his at about 930 this morning when he was unable to get the words out. Medics who arrived and found him to have the speech difficulty described him as having an inability to form words. His attempt to say you can teach an old dog new tricks was difficult for the patient to perform and caused frustration. On arrival to the emergency department the patient appears to be answering questions appropriately with good articulation. He did have a headache about 40 minutes prior to the onset of his speech difficulty and he is not on anticoagulants. He has recently started Imuran which he believes has helped control his Crohn's disease. Review of Systems Constitutional: denies: Fever, Chills, Myalgias, Fatigue Eyes: denies: Decreased vision Ears: denies: Ear pain Nose: denies: Rhinorrhea / runny nose, Congestion Throat: denies: Sore throat Cardiac: denies: Chest pain / pressure, Palpitations Respiratory: denies: Dyspnea, Cough GI: denies: Abdominal Pain, Nausea, Vomiting, Constipation, Diarrhea : denies: Dysuria, Frequency Skin: denies: Rash Musculoskeletal: denies: Neck pain, Back pain, Extremity pain PD PAST MEDICAL HISTORY - Past Medical History Cardiovascular: High cholesterol Respiratory: Asthma Neuro: None Endocrine/Autoimmune: None GI: GI bleed, Crohn's disease : None HEENT: None Psych: None Musculoskeletal: None Derm: Psoriasis - Past Surgical History Past Surgical History: Yes General: Appendectomy, Bowel surgery, Colonoscopy Ortho: Shoulder arthroplasty, Arthroscopic surgery - Present Medications Home Medications: Ambulatory Orders Medication Instructions Recorded Confirmed Multivitamin [Multi-Day Vitamins] 1 tab PO DAILY 11/26/12 10/01/17 Ascorbate Calcium/Bioflavonoid 2,000 mg PO DAILY 07/03/15 10/01/17 [Janet-C 1,000 mg Tablet] Fexofenadine HCl [Ml Allergy] 180 mg PO DAILY PRN 07/03/15 10/01/17 Folic Acid 800 mcg PO DAILY 07/03/15 10/01/17 Magnesium Oxide [Magnesium] 4 - 5 tab PO DAILY 07/03/15 10/01/17 [place]-3/Dha/Epa/Fish Oil [Fish Oil 1 cap PO DAILY 07/03/15 10/01/17 1,000 mg Softgel] Chlorpheniramine Maleate [Allergy 4 mg PO BID 05/29/17 10/01/17 4-Hour] L. Acidophilus/Pectin, Sharp 2 each PO BID 05/29/17 10/01/17 [Acidophilus Capsule] Phenylephrine HCl [Nasal 10 mg PO BID PRN 05/29/17 10/01/17 Decongestant PE] Calcium Carbonate [Tums (Calcium 1,000 - 2,000 mg PO DAILY 06/02/17 10/01/17 Carbonate 500mg)] Potassium Gluconate 595 mg PO DAILY 06/02/17 10/01/17 raNITIdine [Zantac] 150 mg PO DAILY 06/02/17 10/01/17 Acetaminophen/Diphenhydramine [Sm 0.5 tab PO QPM 06/03/17 10/01/17 Pain Reliever Pm Caplet] Cholecalciferol (Vitamin D3) 2,000 unit PO DAILY 06/03/17 10/01/17 [Vitamin D3] Cyanocobalamin (Vitamin B-12) 1,000 mcg SL DAILY 06/03/17 10/01/17 [Vitamin B-12 (1000 mcg sublingual)] Aspirin [Aspirin EC] 81 mg PO DAILY 10/01/17 10/01/17 Ferrous Gluconate 324 mg PO DAILY 10/01/17 10/01/17 Mesalamine [Delzicol] 1,200 mg PO BID 10/01/17 10/15/17 azaTHIOprine [Imuran] 200 mg PO BID 10/15/17 10/15/17 - Allergies Allergies/Adverse Reactions: Allergies Allergy/AdvReac Type Severity Reaction Status Date / Time hydrocodone [Hydrocodone] Allergy Hives Verified 10/01/17 14:34 Sulfa (Sulfonamide Allergy Hives Verified 10/01/17 14:34 Antibiotics) hydromorphone HCl * AdvReac Respiratory Verified 10/01/17 14:34 [From Dilaudid] simvastatin AdvReac weakness, Verified 10/01/17 14:34 can't walk - Social History Does the pt smoke?: No Smoking Status: Never smoker Does the pt drink ETOH?: No Does the pt have substance abuse?: No - Immunizations Immunizations are current?: Yes - POLST Patient has POLST: No PD ED PE NORMAL - Vitals Vital signs reviewed: Yes (Hypertensive) - General General: Alert and oriented X 3, No acute distress, Well developed/nourished - HEENT HEENT: Atraumatic, PERRL, EOMI - Neck Neck: Supple, no meningeal sign, No bony TTP - Cardiac Cardiac: RRR, No murmur - Respiratory Respiratory: No respiratory distress, Clear bilaterally - Abdomen Abdomen: Soft, Non tender - Back Back: No CVA TTP, No spinal TTP - Derm Derm: Normal color, Warm and dry, No rash - Extremities Extremities: No deformity, No edema - Neuro Neuro: Alert and oriented X 3, data recovery planner 2-12 intact, No motor deficit, No sensory deficit, Normal speech Eye Opening: Spontaneous Motor: Obeys Commands Verbal: Oriented GCS Score: 15 - Psych Psych: Normal mood, Normal affect NIHSS - Time Time: 10:20 - Level of Consciousness Level of consciousness: (0) Alert, Keenly responsive LOC Questions: (0) Answers both Q's correct LOC Commands: (0) Performs both correctly - Gaze Best Gaze: (0) Normal - Visual Visual: (0) No loss - Facial Palsy Facial Palsy: (0) Normal, symmetrical movement - Motor Arms (both separate) Motor Arm (right): (0) No drift Motor Arm (left): (0) No drift - Motor Legs (both separate) Motor Leg (right): (0) No drift Motor Leg (left): (0) No drift - Limb Ataxia Limb Ataxia: (0) Absent - Sensory Sensory: (0) Normal - Best Language Best Language: (0) No aphasia - Dysarthria Dysarthria: (0) Normal - Extinction and Inattention (formally neg Extinction and inattention: (0) No abnormality - Total Score/Results Total Score/Result: 0 Results - Vitals Vitals: Vital Signs - 24 hr 10/25/17 10/25/17 10:10 11:05 Temperature 36.4 C L Heart Rate 92 83 Respiratory 16 16 Rate Blood Pressure 169/96 H 160/78 H O2 Saturation 99 98 Oxygen O2 Source Room air - EKG (time done) 1050 Rate: Rate (enter#) (87) Rhythm: NSR [place]: LAD Compare to prior EKG: Unchanged from prior EKG (09-11-16) Computer interpretation: Agree with computer - Labs Labs: Laboratory Tests 10/25/17 10/25/17 10/25/17 10:13 10:13 10:13 WBC 5.1 RBC 4.22 L Hgb 12.0 L Hct 36.6 L MCV 86.7 MCH 28.4 MCHC 32.8 RDW 18.8 H Plt Count 341 MPV 8.2 Neut # 3.0 Lymph # 1.3 L [place] # 0.4 Eos # 0.3 Baso # 0.1 Absolute Nucleated RBC 0.00 Nucleated RBC % 0.0 Sodium 137 Potassium 3.8 Chloride 101 Carbon Dioxide 28 Anion Gap 8.0 BUN 17 Creatinine 0.9 Estimated GFR (MDRD) 83 L Glucose 165 H Calcium 9.8 Total Bilirubin 0.6 AST 40 ALT 37 Alkaline Phosphatase 56 Troponin I < 0.04 Total Protein 7.9 Albumin 3.7 Globulin 4.2 Albumin/Globulin Ratio 0.9 L Lipase 19 L Urine Color Urine Clarity Urine pH Ur Specific [place] Urine Protein Urine Glucose (UA) Urine Ketones Urine Occult Blood Urine Nitrite Urine Bilirubin Urine Urobilinogen Ur Leukocyte Esterase Urine RBC Urine WBC Ur Squamous Epith Cells Amorphous Sediment Urine Bacteria Ur Microscopic Review Urine Culture Comments 10/25/17 11:33 WBC RBC Hgb Hct MCV MCH MCHC RDW Plt Count MPV Neut # Lymph # [place] # Eos # Baso # Absolute Nucleated RBC Nucleated RBC % Sodium Potassium Chloride Carbon Dioxide Anion Gap BUN Creatinine Estimated GFR (MDRD) Glucose Calcium Total Bilirubin AST ALT Alkaline Phosphatase Troponin I Total Protein Albumin Globulin Albumin/Globulin Ratio Lipase Urine Color YELLOW Urine Clarity HAZY Urine pH 8.0 H Ur Specific [place] 1.010 Urine Protein NEGATIVE Urine Glucose (UA) NEGATIVE Urine Ketones NEGATIVE Urine Occult Blood NEGATIVE Urine Nitrite NEGATIVE Urine Bilirubin NEGATIVE Urine Urobilinogen 0.2 (NORMAL) Ur Leukocyte Esterase NEGATIVE Urine RBC 0-5 Urine WBC 0-3 Ur Squamous Epith Cells RARE Squamous Amorphous Sediment Marked Urine Bacteria None Seen Ur Microscopic Review INDICATED Urine Culture Comments NOT INDICATED - Rads (name of study) CT head without Radiology: Prelim report reviewed (Impression: 1. No acute intracranial abnormality. 2. Extensive small vessel ischemic disease in the appropriate clinical setting.), EMP read indepedently, See rad report 2 veiw chest Radiology: Prelim report reviewed (Impression: No convincing acute cardiopulmonary abnormality.), EMP read indepedently, See rad report Procedures - IVC sono (time) 1024 Bedside IVC sono: IVC measures (cm) (1.12), IVC collapsed c insp (cm) (complete) , Dehydration (est 1 liter deficit) PD MEDICAL DECISION MAKING - ED course Complexity details: reviewed results, re-evaluated patient, considered differential, d/w patient, d/w family ED course: 71-year-old male with a transient episode of dysarthria confirmed by the patient 's has resolved his symptoms. He is found to be mildly dehydrated and he is given a liter of saline IV. His CT of head shows extensive small vessel ischemic disease and I suspect dehydration could potentially lead to dysarthria. He is admitted to observation for further work up of TIA. Departure - Departure Disposition: ED Place in Observation Clinical Impression: Transient ischemic attack (TIA) Qualifiers: Transient cerebral ischemia type: unspecified Qualified Code(s): G45.9 - Transient cerebral ischemic attack, unspecified Condition: Stable
[2017-10-25 10:31] LABS: BASOPHILS # (AUTO) 0.1 10^3/uL (0.0-0.1); BASOPHILS % (AUTO) 2.8 %; EOSINOPHILS # (AUTO) 0.3 10^3/uL (0.0-0.7); EOSINOPHILS % (AUTO) 5.1 %; LYMPHOCYTES # (AUTO) 1.3 10^3/uL (1.5-3.5); LYMPHOCYTES % (AUTO) 25.9 %; MEAN CORPUSCULAR HEMOGLOBIN 28.4 pg (27.0-31.0); MEAN CORPUSCULAR HGB CONC 32.8 g/dL (32.0-36.0); MEAN CORPUSCULAR VOLUME 86.7 fL (80.0-94.0); MEAN PLATELET VOLUME 8.2 fL (7.4-11.4); MONOCYTES # (AUTO) 0.4 10^3/uL (0.0-1.0); MONOCYTES % (AUTO) 8.7 %; NEUTROPHILS % (AUTO) 57.5 %; PLT - PLATELET COUNT 341 10^3/uL (130-450); RED BLOOD COUNT 4.22 10^6/uL (4.70-6.10); RED CELL DISTRIBUTION WIDTH 18.8 % (12.0-15.0); WHITE BLOOD COUNT 5.1 x10^3/uL (4.8-10.8)
[2017-10-25 10:42] LABS: ALBUMIN 3.7 g/dL (3.2-5.5); ALBUMIN/GLOBULIN RATIO 0.9 (1.0-2.2); BILIRUBIN,TOTAL 0.6 mg/dL (0.2-1.0); CALCIUM 9.8 mg/dL (8.5-10.3); CREATININE 0.9 mg/dL (0.6-1.2); TOTAL PROTEIN 7.9 g/dL (6.7-8.2)
[2017-10-25 11:57] LABS: BILIRUBIN,URINE NEGATIVE (NEGATIVE); GLUCOSE, URINE (UA) NEGATIVE (NEGATIVE); KETONES,URINE (UA) NEGATIVE (NEGATIVE); LEUKOCYTE ESTERASE, URINE NEGATIVE (NEGATIVE); NITRITE,URINE NEGATIVE (NEGATIVE); OCCULT BLOOD,URINE NEGATIVE (NEGATIVE); PROTEIN,URINE NEGATIVE (NEGATIVE); UROBILINOGEN,URINE 0.2 (NORMAL) E.U./dL (NORMAL)
[2017-10-25 12:01] LABS: CLARITY,URINE HAZY (CLEAR)
[2017-10-25 12:18] LABS: BACTERIA,URINE None Seen /HPF (None Seen); RBC,URINE 0-5 /HPF (0-5); SQUAMOUS EPITHELIAL CELL,UR RARE Squamous (<= Few)
[2017-10-25 12:19] LABS: AMORPHOUS SEDIMENT,UR Marked /LPF
[2017-10-25] MEDS ORDERED: PROCHLORPERAZINE 10 MG/2 ML VIAL IVP PRN (12:52)
[2017-10-25] MEDS ORDERED: SODIUM CHLORIDE FLUSH 0.9% 10 ML SYRINGE IVP PRN (12:52)
[2017-10-25] MEDS ORDERED: ACETAMINOPHEN 325 MG TABLET PO PRN (12:52)
[2017-10-25] MEDS ORDERED: TEMAZEPAM 15 MG CAPSULE PO PRN (12:52)
[2017-10-25 13:43] LABS: INR 1.1 (0.8-1.2); PT - PROTHROMBIN TIME 12.8 secs (9.9-12.6)
[2017-10-25] MEDS: ASPIRIN EC 81 MG TABLET PO SCH (15:00)
--- NOTE | 2017-10-25 15:30 | XRAY Report ---
EXAM: CHEST RADIOGRAPHY EXAM DATE: 10/25/2017 10:46 AM. CLINICAL HISTORY: Aphasia, immunosuppression. COMPARISON: 09/11/2016. TECHNIQUE: 2 views. FINDINGS: Lungs/Pleura: Similar mild bibasal opacity, probably atelectasis or scarring. No new pulmonary opacit y. No significant pleural effusion or evidence of pneumothorax. Mediastinum: Heart and mediastinal contours are unremarkable. Other: Right shoulder arthroplasty. IMPRESSION: No convincing acute cardiopulmonary abnormality. [facility] Referring Provider Line: [phone] SITE ID: [id number]
--- NOTE | 2017-10-25 15:30 | XRAY Preliminary Report ---
Exam: XR CHEST 2 VIEW X-RAY IMPRESSION: No convincing acute cardiopulmonary abnormality. [facility] SITE ID: [id number]
--- NOTE | 2017-10-25 15:30 | CT Report ---
EXAM: CT HEAD EXAM DATE: 10/25/2017 10:31 AM. CLINICAL HISTORY: Aphasia. COMPARISON: None. TECHNIQUE: Multiaxial CT images were obtained from the foramen magnum to the vertex. Reformats: Coron al. IV contrast: None. In accordance with CT protocol optimization, one or more of the following dose reduction techniques w ere utilized for this exam: automated exposure control, adjustment of mA and/or KV based on patient s ize, or use of iterative reconstructive technique. FINDINGS: Parenchyma: Extensive subcortical and periventricular white matter changes consistent with small vess el ischemic disease in the appropriate clinical setting. No intraparenchymal hemorrhage. No evidence of mass, midline shift, or CT findings of infarction. Juarez-white differentiation is distinct. Extraaxial Spaces: Normal for age. No subdural or epidural collections identified. Ventricles: Normal in size and position. Sinuses and Orbits: Imaged paranasal sinuses, orbits, and mastoids show no significant abnormality. Bones: No evidence of fracture or calvarial defect. Other: None. IMPRESSION: 1. No acute intracranial abnormality. 2. Extensive small vessel ischemic disease in the appropriate clinical setting. [facility] Referring Provider Line: [phone] SITE ID: [id number]
--- NOTE | 2017-10-25 15:30 | CT Preliminary Report ---
Exam: CT HEAD W/O IMPRESSION: 1. No acute intracranial abnormality. 2. Extensive small vessel ischemic disease in the appropriate clinical setting. [facility] SITE ID: [id number]
[2017-10-25] MEDS: SODIUM CHLORIDE FLUSH 0.9% 10 ML SYRINGE IVP SCH (18:19)
[2017-10-25] MEDS ORDERED: azaTHIOprine 50 MG TABLET PO SCH (21:00)
--- NOTE | 2017-10-25 21:11 | HISTORY & PHYSICAL EXAMINATION ---
DATE OF SERVICE: 10/25/2017 Physician: Bere Roldan MD HISTORY OF PRESENT ILLNESS: This is a 71-year-old white male with a longstanding history of Crohn's disease that has had multiple exacerbations including significant rectal bleeding. He required airlift transfer from here in 2014 because of Crohn's exacerbation and then had 7 units of blood loss. The patient has had many adjustment of medications for his Crohn's and finally has had stability using Asacol, Remicade and recent Imuran added. The patient also has a history of elevated cholesterol (possibly triglyceride portion), asthma, and psoriasis. He has undergone appendectomy, colonoscopies and bowel surgery as well as several arthroscopies. The patient presents with dysarthria that occurred while he was eating breakfast , when he could realize that the words he was trying to speak were not forming. His noticed this as well. She called an ambulance and he still had dysarthria when the paramedics arrived. On presentation to the emergency room, he had slow improvement of his speech and currently is speaking normally according to him and to the daughter, who is in the room with him. He has never had symptoms like this before. There were no other complaints of weakness or sensory deficits. The patient is being admitted for TIA evaluation. PAST MEDICAL HISTORY 1. Crohn's disease with multiple lower gastrointestinal bleeds and multiple exacerbations. 2. Asthma. 3. Elevated cholesterol or triglycerides. 4. Psoriasis. MEDICATIONS 1. Multivitamin daily. 2. Vitamin C daily. 3. Fexofenadine 180 mg daily p.r.n. allergies. 4. Folic acid daily. 5. Magnesium daily. 6. Fish oil 1400 mg daily. 7. Chlorpheniramine maleate 4 mg b.i.d. 8. Acidophilus 2 tablets b.i.d. 9. Nasal decongestant phenylephrine p.r.n. 10. Calcium carbonate p.r.n. 11. Potassium gluconate daily. 12. Zantac 150 mg daily. 13. Tylenol p.r.n. pain. 14. Vitamin D3 2000 units daily. 15. Vitamin B12 daily. 16. Baby aspirin daily. 17. Ferrous gluconate 324 mg daily. 18. Asacol unknown dose 4 times a day. 19. Imuran 200 mg p.o. b.i.d. 20. Mesalamine 1200 mg p.o. b.i.d. ALLERGIES 1. HYDROCODONE AND SULFA, WHICH CAUSED HIVES. 2. DILAUDID, WHICH CAUSED RESPIRATORY DISTRESS. 3. SIMVASTATIN, WHICH CAUSED MUSCLE WEAKNESS. SOCIAL HISTORY: The patient is a nonsmoker, who never smoked, drinks no alcohol as it causes severe flushing for him and denies substance abuse. The patient has been on disability for 20 years because of his severe Crohn's status. FAMILY HISTORY: No inherited diseases. REVIEW OF SYSTEMS: A comprehensive review of systems was performed and the pertinent positives are summarized above. PHYSICAL EXAMINATION GENERAL: Elderly, white male who appears older than his age and pale. VITAL SIGNS: Blood pressure 160/78, heart rate 80 in sinus rhythm. Room air saturation 98%. HEENT: Unremarkable. Moist oral mucosa. NECK: No JVD or carotid bruits. CHEST: Clear. HEART: Heart sounds normal. No audible murmurs, no gallop. ABDOMEN: Soft, nontender, normal bowel sounds. EXTREMITIES: No clubbing, cyanosis or edema. NEUROLOGIC: Grossly intact currently. LABORATORIES: Normal electrolytes. Normal BUN and creatinine. Normal liver tests. Troponin not detectable (<0.04). Normal lipase. White blood count 5.1, hemoglobin 12, MCV normal, platelet count normal. INR normal. Urinalysis negative. CHEST X-RAY: No cardiopulmonary abnormality. Head CT: No acute intracranial abnormality, however, extensive small vessel ischemic disease seen. EKG: Normal sinus rhythm and poor R-wave progression, otherwise within normal limits. IMPRESSION/DIAGNOSES 1. Transient ischemic attack (TIA), symptom was dysarthria. 2. Crohn's disease requiring immunosuppressants for stabilization, stable only recently. 3. Prior gastrointestinal bleeding and mild anemia currently. 4. Evidence of ischemic intracerebral vascular disease (PVD). 5. Elevated cholesterol and simvastatin intolerance. PLAN: Place the patient in Observation status. Begin telemetry and watch for atrial fibrillation. The patient requests that manual blood pressure be done since the automated blood pressure cuff readings tend to read erroneous hypertension. Obtain an Echocardiogram, carotid Doppler and repeat brain imaging with MRI and MRA. Check lipids and treat per guidelines ( the patient states that Niacin and another medication was tried. Therefore, I am suspicious that it was triglycerides that were very elevated and with uncontrolled triglycerides, he may have premature intracerebral vascular disease as seen on imaging). Venous thromboembolism prophylaxis: Sequential compression devices. CODE STATUS: FULL CODE. ATTESTATION: The patient was expected to be transferred to another facility or discharged within 96 hours: Yes. TD: 10/25/2017 21:10 FRANCIA
[2017-10-25] MEDS: MESALAMINE 400 MG CAPSULE PO SCH (21:19)
[2017-10-25] MEDS: Chlorpheniramine Maleate 4 MG PO SCH (21:20)
--- NOTE | 2017-10-25 22:51 | Ultrasound Preliminary Report ---
Exam: US CAROTID DOPPLER COMPLETE IMPRESSION: 1. Elevated velocity and ICA/CCA ratio in the proximal left ICA indicating 50-69% stenosis. 2. Mildly elevated velocity suggesting 50-69% stenosis with borderline normal ICA/CCA ratio in the mi d left ICA. 3. No evidence for hemodynamically significant right ICA stenosis. 4. Antegrade flow within the vertebral arteries bilaterally. Validated velocity measurements with angiographic measurements and velocity criteria are extrapolated from diameter data as defined by the Society of Radiologists in Ultrasound Consensus Conference Radi ology 2003; 229;340-346. [facility] SITE ID: [id number]
--- NOTE | 2017-10-25 23:09 | Ultrasound Report ---
EXAM: CAROTID DOPPLER ULTRASOUND EXAM DATE: 10/25/2017 10:27 PM. CLINICAL HISTORY: Transient ischemic attack. COMPARISON: None. TECHNIQUE: Real-time sonographic vascular imaging was performed by the terrazzo installer through the [employer] arterial system with a linear transducer utilizing color-flow, Doppler flow and spectral analysis. Multiple ambulatory service representative static images were saved for review. FINDINGS: Right: RCCA Prox: PSV 109 cm/sec. RCCA Dist: PSV 63.9 cm/sec, EDV 16.8 cm/sec. RECA: PSV 76.7 cm/sec. R Bulb: PSV 50.4 cm/sec, EDV 11.8 cm/sec, ICA/CCA ratio 0.8. VIPUL Prox: PSV 64.4 cm/sec, EDV 17.9 cm/sec, ICA/CCA ratio 1.0. VIPUL Mid: PSV 68.3 cm/sec, EDV 22.4 cm/sec, ICA/CCA ratio 1.1. VIPUL Dist: PSV 85.1 cm/sec, EDV 26.3 cm/sec, ICA/CCA ratio 1.3. RVA: PSV 4.7 cm/sec. RVA flow direction: Antegrade. Left: LCCA Prox: PSV 101.3 cm/sec. LCCA Dist: PSV 70.0 cm/sec, EDV 18.3 cm/sec. LECA: PSV 155 cm/sec. L Bulb: PSV 90.2 cm/sec, EDV 25.5 cm/sec, ICA/CCA ratio 1.3. LICA Prox: PSV 148.7 cm/sec, EDV 47.1 cm/sec, ICA/CCA ratio 2.1. LICA Mid: PSV 130.3 cm/sec, EDV 38.7 cm/sec, ICA/CCA ratio 1.9. LICA Dist: PSV 77.3 cm/sec, EDV 25.2 cm/sec, ICA/CCA ratio 1.1. LVA: PSV 40.6 cm/sec. LVA flow direction: Antegrade. Other: Atherosclerotic calcifications and plaque in the bilateral carotid bulbs and ICAs. IMPRESSION: 1. Elevated velocity and ICA/CCA ratio in the proximal left ICA indicating 50-69% stenosis. 2. Mildly elevated velocity suggesting 50-69% stenosis with borderline normal ICA/CCA ratio in the mi d left ICA. 3. No evidence for hemodynamically significant right ICA stenosis. 4. Antegrade flow within the vertebral arteries bilaterally. Validated velocity measurements with angiographic measurements and velocity criteria are extrapolated from diameter data as defined by the Society of Radiologists in Ultrasound Consensus Conference Radi ology 2003; 229;340-346. [facility] Referring Provider Line: [phone] SITE ID: [id number]
[2017-10-26] MEDS: SODIUM CHLORIDE FLUSH 0.9% 10 ML SYRINGE IVP SCH ×2 (05:04→10:44)
[2017-10-26 05:50] LABS: CHOLESTEROL 205 mg/dL; HDL CHOLESTEROL 41 mg/dL; LDL CHOLESTEROL,CALCULATED 141 mg/dL; LDL/HDL RATIO 3.4 (<3.6); VLDL CHOLESTEROL 23 mg/dL
[2017-10-26] MEDS ORDERED: MAGNESIUM OXIDE 400 MG TABLET PO SCH (08:00)
[2017-10-26] MEDS ORDERED: MULTIVITAMIN TABLET PO SCH (08:00)
[2017-10-26] MEDS ORDERED: POLYETHYLENE GLYCOL 3350 17 GM PACKET PO SCH (09:00)
[2017-10-26] MEDS ORDERED: CYANOCOBALAMIN 500 MCG TABLET PO SCH (09:00)
[2017-10-26] MEDS ORDERED: azaTHIOprine 50 MG TABLET PO SCH (09:00)
[2017-10-26] MEDS ORDERED: FOLIC ACID 1 MG TABLET PO SCH (09:00)
[2017-10-26] MEDS ORDERED: OMEGA-3 ACID ETHYL ESTERS 1 GM CAPSULE PO SCH (09:00)
[2017-10-26] MEDS ORDERED: CHOLECALCIFEROL 1,000 UNIT TABLET PO SCH (09:00)
[2017-10-26] MEDS ORDERED: FERROUS GLUCONATE 324 MG TABLET PO SCH (09:00)
[2017-10-26] MEDS ORDERED: FAMOTIDINE 20 MG TABLET PO SCH (09:00)
[2017-10-26] MEDS ORDERED: CALCIUM CARBONATE CHEW 500 MG TABLET PO SCH (09:00)
[2017-10-26] MEDS: ASPIRIN EC 81 MG TABLET PO SCH (09:57)
[2017-10-26] MEDS ORDERED: GADOBUTROL 7.5 MMOL/7.5 ML VIAL IVP ONE (12:54)
[2017-10-26 13:15] VITALS: BP 160/80
--- NOTE | 2017-10-26 14:05 | MRI Report ---
EXAM: MRI BRAIN WITHOUT AND WITH CONTRAST EXAM DATE: 10/26/2017 12:58 PM. CLINICAL HISTORY: 71-year-old man with TIA. COMPARISON: Noncontrast head CT on 10/25/2017. TECHNIQUE: Multiplanar, multisequence T1-weighted and fluid-sensitive MR sequences of the brain were performed. Sequences optimized for routine evaluation. Other: None. IV Contrast: 7.5 cc Gadavist. FINDINGS: Parenchyma: No evidence of acute infarct on diffusion weighted sequence. The parenchyma demonstrates moderate to severe burden of FLAIR hyperintensities in the periventricular and deep cerebral white ma tter and also involving the yovani, most consistent with sequelae of chronic small vessel ischemic dise ase. No evidence of prior hemorrhage on susceptibility weighted sequence. No abnormal enhancement. Pituitary: Unremarkable. Ventricles and Extra-axial Spaces: Ventricles are symmetric and similar in size to the CT done one da y prior, but enlarged out of proportion to the cerebral sulci, most consistent with normal pressure h ydrocephalus or central cerebral volume loss greater than expected for age. Extra-axial spaces are un remarkable. No abnormal enhancement. Orbits: Unremarkable. Sinuses: Paranasal sinuses and mastoid air cells are clear. Major Vascular Flow Voids: Intact. Dural Venous Sinuses and Major Central Veins: Patent on post-contrast images. IMPRESSION: 1. No acute intracranial abnormality. Specifically, no evidence of acute infarct, hemorrhage, or mass lesion. 2. Moderate to severe white matter changes, most consistent with sequelae of chronic small vessel isc hemic disease. 3. Ventricles are enlarged out of proportion to sulcal enlargement, consistent with normal pressure h ydrocephalus or central cerebral volume loss greater than expected for age. [facility] Referring Provider Line: [phone] SITE ID: [id number]
--- NOTE | 2017-10-26 14:08 | MRI Report ---
EXAM MRA BRAIN EXAM DATE: 10/26/2017 12:58 PM. CLINICAL HISTORY: 71-year-old man with TIA. COMPARISON: None. TECHNIQUE: Multiplanar, multisequence MRA sequences of the brain were performed. Other: None. Post-pr ocessing: Multiplanar 3D MIP reconstructions. IV Contrast: None. FINDINGS: RIGHT: Visualized Internal Carotid: Patent without significant stenosis or aneurysm. Anterior Cerebral: Patent without significant stenosis or aneurysm. Middle Cerebral: Patent without significant stenosis or aneurysm. Posterior Cerebral: Patent without significant stenosis or aneurysm. Posterior Communicating: Patent. No aneurysm. Visualized Vertebral: Patent without significant stenosis or dissection. The right vertebral artery i s dominant. LEFT: Visualized Internal Carotid: Patent without significant stenosis or aneurysm. Anterior Cerebral: Patent without significant stenosis or aneurysm. The A1 segment is hypoplastic, a normal variant. Distal branches are largely supplied by the anterior communicating artery. Middle Cerebral: Patent without significant stenosis or aneurysm. Posterior Cerebral: Patent without significant stenosis or aneurysm. The SECOND CUTTER is supplied by the poste rior communicating artery ( origin), a normal variant. Posterior Communicating: Patent. No aneurysm. Visualized Vertebral: Patent without significant stenosis or dissection. CENTRAL: Anterior Communicating: Patent. No aneurysm. Basilar: Patent without significant stenosis, dissection, or aneurysm. IMPRESSION: 1. Normal MRA of the head. No significant vascular stenosis or aneurysm. [facility] Referring Provider Line: [phone] SITE ID: [id number]
--- NOTE | 2017-10-26 14:18 | MRI Report ---
EXAM: MR ANGIOGRAM NECK EXAM DATE: 10/26/2017 12:59 PM. CLINICAL HISTORY: 71-year-old man with TIA and abnormal carotid Doppler. COMPARISON: Carotid Doppler on 10/25/2017. TECHNIQUE: Multiplanar, multisequence MRA sequences of the neck were performed. Other: None. Post-pro cessing: Multiplanar 3D MIP reconstructions. IV Contrast: 7.5 cc Gadavist. Evaluation of arterial st enosis is based on a NASCET method of measurement. FINDINGS: RIGHT Common Carotid: Patent. No dissection or significant stenosis. Internal Carotid: Patent. Mild focal stenosis is present at the origin, but narrowing measures less t patel 25% by NASCET criteria. No dissection. External Carotid: Patent. No dissection or significant stenosis. Vertebral: Patent. No dissection or significant stenosis. The right vertebral artery is dominant. LEFT Common Carotid: Patent. No dissection or significant stenosis. Internal Carotid: Patent. Irregularity is present along the proximal ICA, consistent with underlying atherosclerotic plaque. Stenosis measures less than 50% by NASCET criteria. External Carotid: Patent. No dissection or significant stenosis. Vertebral: The origin is poorly visualized, most consistent with high-grade stenosis (greater than 70 % luminal narrowing). The remainder of the artery is patent without significant stenosis. The intracr anial segment distal to the PICA is hypoplastic, consistent with congenital nondominance. Other: Limited evaluation of the neck soft tissues is unremarkable. IMPRESSION: 1. Carotid arteries are patent without significant stenosis bilaterally. 2. High-grade stenosis (greater than 70% luminal narrowing) is present at the origin of the left vert ebral artery. However, the right vertebral artery is dominant and widely patent. [facility] Referring Provider Line: [phone] SITE ID: [id number]
[2017-10-26] MEDS: MESALAMINE 400 MG CAPSULE PO SCH (14:29)
[2017-10-26] MEDS: Chlorpheniramine Maleate 4 MG PO SCH (14:29)
--- NOTE | 2017-10-26 15:49 | Discharge Plan ---
Discharge Plan Disposition: 01 Home, Self Care Condition: Stable Prescriptions: Amlodipine Besylate [Norvasc] 2.5 mg PO DAILY #30 tablet Diet: Cardiac Shower Restrictions: No Driving Restrictions: No Instruction Topics: Cholesterol Control, Fat Cholesterol, Food Cholesterol, Cholesterol Lifestyle Change, ED Hypertension New Begin Tx Additional Instructions or Follow Up instructions: See your doctor in follow-up in 7-10 days for BP management and referral to Neurology. Resume all your pre-hospital medications and start the new BP medication Norvasc 1.5 mg daily in am. Eat a low cholesterol diet and eat oatmeal and/or use Metamucil, to get the bad cholesterol down with oral management. Red Yeast Rice tablets also help a bit, if you cannot tolerate statin medications. No Smoking: If you smoke, Please STOP! Call for help. Follow-up with: Vidal Varela MD [Primary Care Provider] -
--- NOTE | 2017-11-26 23:44 | DISCHARGE SUMMARY ---
Physician: Bere Roldan MD DATE OF ADMISSION: 10/25/2017 DATE OF DISCHARGE: 10/26/2017 HISTORY OF PRESENT ILLNESS: This is a 71-year-old white male with a longstanding history of Crohn disease with multiple exacerbations. He finally has had stability using Asacol, Remicade and recent Imuran. Patient has a history of elevated cholesterol and has statin intolerance. He has a history of asthma and psoriasis. Patient presented with acute onset of dysarthria occurring while he was eating, witnessed by a family member. He had slow improvement of his speech and was speaking normally when in the emergency room. He was placed in observation for evaluation of TIA. HOSPITAL COURSE AND DISCHARGE DIAGNOSES 1. TIA. There were no recurrences of his symptoms of dysarthria. Patient did undergo imaging to evaluate for a cardiac source of embolus and for a stroke. The echo showed LV EF of 60%-65% with mild diastolic dysfunction, normal RV size and function, no significant valve disease, no pulmonary hypertension, no intracardiac shunt and no intracardiac clot. The imaging of his brain and carotids showed no acute intracranial abnormality and extensive small vessel ischemic disease on the head CT. Carotid Dopplers showed estimated 50%-69% stenosis in the proximal left ICA and 50%-69% stenosis in the mid left ICA. MRI and MRA showed no acute intracranial abnormality, such as acute infarct, hemorrhage, or mass, but had moderate-to- severe white matter changes consistent with sequela of chronic small vessel ischemic disease, and ventricles out of proportion to sulcal enlargement, consistent with normal pressure hydrocephalus or central cerebral volume loss greater than expected for age. His brain and neck blood vessels showed high-grade stenosis of greater than 70% in the origin of the left vertebral artery, right vertebral artery patent, and no intra cerebrovascular stenosis or aneurysm. Patient was allowed to have permissive hypertension but advised to start Norvasc 2.5 mg daily after discharge for better blood pressure control. He was also advised to see his PCP for referral to a neurologist. 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 Antiplatelet agents and good blood pressure and cholesterol control were advised. 3. Hypertension. Norvasc 2.5 mg daily would be a new starting blood pressure medication. 4. STATIN INTOLERANCE. PATIENT REPORTED HAVING TRIED SEVERAL STATINS, ALL OF WHICH CAUSED MUSCLE ACHES. His lipid panel done here showed a total cholesterol of 205, LDL of 141, triglycerides of 114, HDL of 41. Patient needs to achieve an LDL under 70-100 for management of this risk factor for TIA and vascular disease. 5. Immunosuppressed status. Patient's 3 medications for Crohn disease were continued. 6. Crohn disease, on Imuran. Patient had no exacerbations of his Crohn's symptoms while here. LABS AND IMAGING: reviewed and summarized above. ALLERGIES 1. HYDROCODONE 2. SULFA. 3. DILAUDID. 4. SIMVASTATIN. MEDICATIONS AT THE TIME OF DISCHARGE 1. Multivitamin daily. 2. Folic acid daily. 3. Magnesium oxide daily. 4. [place]-3 daily. 5. Vitamin C daily. 6. Nasal decongestant p.r.n. 7. Acidophilus capsule daily. 8. Allergy medication with chlorpheniramine p.r.n. 9. Potassium gluconate 90 mg daily. 10. Tums p.r.n. 11. Ranitidine 150 mg b.i.d. 12. Tylenol p.r.n. every evening. 13. Iron gluconate 324 mg daily. 14. Baby aspirin daily. 15. Delzicol 400 mg capsules, take 1200 mg b.i.d. 16. Imuran 100 mg every evening. 17. Amlodipine 2.5 mg daily to be started as an outpatient. PHYSICAL EXAMINATION AT DISCHARGE. VITAL SIGNS: Blood pressure 160/80, pulse of 91, afebrile, room air saturation 96%. HEENT: Unremarkable. NECK: Without carotid bruits or JVD. CHEST: Clear. HEART: Sounds normal. ABDOMEN: Soft and benign. EXTREMITIES: Without edema. NEUROLOGIC: Intact. CODE STATUS: FULL CODE. FOLLOWUP: With his PCP and recommend referral to a neurologist for further management. Time required to complete this entire discharge, dictation, review of labs and medications: 30 minutes. TD: 11/26/2017 23:43 FRANCIA
== END 2017-10-26 16:30 | disposition home or self-care (01) ==
LOC: EDUNIT# → ED 10:06 → OBS 12:52
PROVIDERS: ADMIT Internal Medicine; ATTEND Internal Medicine
DX: G45.9 Transient cerebral ischemic attack, unspecified (principal); I10 Essential (primary) hypertension; E86.0 Dehydration; I67.82 Cerebral ischemia; D64.9 Anemia, unspecified; K50.90 Crohn's disease, unspecified, without complications; E78.00 Pure hypercholesterolemia, unspecified; Z79.82 Long term (current) use of aspirin; Z79.899 Other long term (current) drug therapy; Z88.8 Allergy status to other drugs, medicaments and biological substances; Z79.1 Long term (current) use of non-steroidal anti-inflammatories (NSAID); Z87.09 Personal history of other diseases of the respiratory system; Z87.2 Personal history of diseases of the skin and subcutaneous tissue
CPT/HCPCS: 36415; 70450; 70544; 70549; 70553; 71046; 80053; 80061; 81001; 83690; 83721; 84484; 85025; 85610; 93005; 93306; 93880; 96360; 99284; 99285; A9270; A9585; G0378; J7500; 81003; 87086

== ENCOUNTER 2017-10-29 19:14 | Outpatient (CLI) | payer MEDICARE, OTHER | END 2017-10-29 19:15 | disposition critical access hospital (66) | LOC: EMS 19:14 | PROVIDERS: ATTEND Surgery | DX: R51 Headache (principal); R47.9 Unspecified speech disturbances ==

== ENCOUNTER 2017-10-29 19:55 | Emergency (ER) | payer MEDICARE, OTHER ==
[2017-10-29] MEDS ORDERED: SODIUM CHLORIDE 0.9% 1,000 ML IV ONE (20:06)
--- NOTE | 2017-10-29 20:07 | ED Physician Documentation ---
PD HPI FOCAL NEURO - Stated complaint Stated Complaint: WEAKNESS/WORD DIFFICULTY - History obtained from History obtained from: Patient, EMS - History of Present Illness Timing - onset: Today (71-year-old gentleman who was admitted here about 5 days ago for TIA symptoms. During that workup he had a negative head CT and MRI And MRA of the head but did have On carotid ultrasound and elevated left ICA velocity suggesting a 50-69% stenosis, And on MRI of the neck showed no carotid stenosis but he did have a greater than 70% stenosis at the origin of the left vertebral artery. He went to take a nap at 5 PM and awoke with difficulty with word finding. He is right-handed. Per paramedics he is getting better but his symptoms have not resolved.) - Additional information Additional information: Note made of Crohns exacerbation in the past requiring big transfusion (7 units in 2015 per chart). Review of Systems Ten Systems: 10 systems reviewed and negative Constitutional: denies: Fever, Chills Throat: denies: Dental pain / toothache, Sore throat Cardiac: denies: Chest pain / pressure, Palpitations Respiratory: denies: Dyspnea, Cough PD PAST MEDICAL HISTORY - Past Medical History Cardiovascular: High cholesterol Respiratory: Asthma Neuro: None Endocrine/Autoimmune: None GI: GI bleed, Crohn's disease : None HEENT: None Psych: None Musculoskeletal: None Derm: Psoriasis - Past Surgical History Past Surgical History: Yes General: Appendectomy, Bowel surgery, Colonoscopy Ortho: Shoulder arthroplasty, Arthroscopic surgery - Present Medications Home Medications: Ambulatory Orders Medication Instructions Recorded Confirmed Multivitamin [Multi-Day Vitamins] 1 tab PO DAILY 11/26/12 10/25/17 Ascorbate Calcium/Bioflavonoid 500 mg PO DAILY 07/03/15 10/25/17 [Janet-C 1,000 mg Tablet] Folic Acid 400 mcg PO DAILY 07/03/15 10/25/17 Magnesium Oxide [Magnesium] 500 mg PO BID 07/03/15 10/25/17 [place]-3/Dha/Epa/Fish Oil [Fish Oil 1,400 mg PO DAILY 07/03/15 10/25/17 1,000 mg Softgel] Chlorpheniramine Maleate [Allergy 4 mg PO BID 05/29/17 10/25/17 4-Hour] L. Acidophilus/Pectin, [place] 1 each PO BID 05/29/17 10/25/17 [Acidophilus Capsule] Phenylephrine HCl [Nasal 10 mg PO BID PRN 05/29/17 10/25/17 Decongestant PE] Calcium Carbonate [Tums (Calcium 1,000 - 2,000 mg PO DAILY 06/02/17 10/25/17 Carbonate 500mg)] Potassium Gluconate 595 mg PO DAILY 06/02/17 10/25/17 raNITIdine [Zantac] 150 mg PO BID 06/02/17 10/25/17 Acetaminophen/Diphenhydramine [Sm 0.5 tab PO QPM 06/03/17 10/25/17 Pain Reliever Pm Caplet] Aspirin [Aspirin EC] 81 mg PO DAILY 10/01/17 10/25/17 Ferrous Gluconate 324 mg PO DAILY 10/01/17 10/25/17 Mesalamine [Delzicol] 1,200 mg PO BID 10/01/17 10/25/17 azaTHIOprine [Imuran] 100 mg PO QPM 10/15/17 10/25/17 Cholecalciferol (Vitamin D3) 400 unit PO BID 10/25/17 10/25/17 [Vitamin D3] Amlodipine Besylate [Norvasc] 2.5 mg PO DAILY #30 tablet 10/26/17 - Allergies Allergies/Adverse Reactions: Allergies Allergy/AdvReac Type Severity Reaction Status Date / Time hydrocodone [Hydrocodone] Allergy Hives Verified 10/29/17 20:08 Sulfa (Sulfonamide Allergy Hives Verified 10/29/17 20:08 Antibiotics) hydromorphone HCl * AdvReac Respiratory Verified 10/29/17 20:08 [From Dilaudid] simvastatin AdvReac weakness, Verified 10/29/17 20:08 can't walk - Social History Does the pt smoke?: No Smoking Status: Former smoker Does the pt drink ETOH?: No Does the pt have substance abuse?: No - Immunizations Immunizations are current?: Yes - POLST Patient has POLST: No PD ED PE NORMAL - Vitals Vital signs reviewed: Yes - General General: Other (He is slightly confused with some word finding difficulties. 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 Eye Opening: Spontaneous Motor: Obeys Commands Verbal: Confused GCS Score: 14 NIHSS - Time Time: 20:08 - Level of Consciousness Level of consciousness: (0) Alert, Keenly responsive LOC Questions: (1) Answers one Q correctly (He knows the month but says it is 2011) LOC Commands: (0) Performs both correctly - Gaze Best Gaze: (0) Normal - Visual Visual: (0) No loss - Facial Palsy Facial Palsy: (0) Normal, symmetrical movement - Motor Arms (both separate) Motor Arm (right): (0) No drift Motor Arm (left): (0) No drift - Motor Legs (both separate) Motor Leg (right): (0) No drift Motor Leg (left): (0) No drift - Limb Ataxia Limb Ataxia: (0) Absent - Sensory Sensory: (0) Normal - Best Language Best Language: (1) [id number] - Dysarthria Dysarthria: (0) Normal - Extinction and Inattention (formally neg Extinction and inattention: (0) No abnormality - Total Score/Results Total Score/Result: 2 Results - Vitals Vitals: Vital Signs - 24 hr 10/29/17 10/29/17 10/29/17 19:58 20:35 20:37 Temperature 36.6 C Heart Rate 94 86 85 Respiratory 18 16 19 Rate Blood Pressure 211/109 H 190/95 H 173/85 H O2 Saturation 99 96 95 10/29/17 10/29/17 10/29/17 21:02 21:09 21:33 Temperature Heart Rate 80 82 78 Respiratory 18 18 14 Rate Blood Pressure 153/76 H 159/77 H 145/72 H O2 Saturation 95 96 96 10/29/17 10/29/17 22:04 22:24 Temperature 36.0 C L Heart Rate 80 89 Respiratory 18 19 Rate Blood Pressure 161/89 H 161/74 H O2 Saturation 96 98 Oxygen O2 Source Room air - EKG (time done) 2023 Rate: Rate (enter#) (82) Rhythm: NSR [place]: Normal Intervals: Normal [place] QRS: Normal Ischemia: Normal ST segments Computer interpretation: Agree with computer - Labs Labs: Laboratory Tests 10/29/17 10/29/17 10/29/17 20:35 20:35 20:35 WBC 6.9 RBC 4.14 L Hgb 11.5 L Hct 35.8 L MCV 86.6 MCH 27.7 MCHC 32.0 RDW 19.1 H Plt Count 373 MPV 8.1 Neut # Not Reportable Lymph # Not Reportable [place] # Not Reportable Eos # Not Reportable Baso # Not Reportable Absolute Nucleated RBC Not Reportable Total Counted 100 Band Neuts % (Manual) 0 Abnorm Lymph % (Manual) 0 Nucleated RBC % Not Reportable Neutrophils # (Manual) 3.0 Lymphocytes # (Manual) 2.5 Monocytes # (Manual) 1.0 Eosinophils # (Manual) 0.2 Basophils # (Manual) 0.2 H Differential Comment MANUAL DIFFERENTIAL Manual Slide Review Indicated WBC Morphology NORMAL APPEARANCE Platelet Estimate NORMAL (130-450,000) Platelet Morphology NORMAL APPEARANCE RBC Morph Micro Appear NORMAL APPEARANCE PT 12.7 H INR 1.1 Sodium 136 Potassium 4.0 Chloride 101 Carbon Dioxide 28 Anion Gap 7.0 BUN 16 Creatinine 0.9 Estimated GFR (MDRD) 83 L Glucose 118 H Calcium 9.3 Total Bilirubin 0.3 AST 42 ALT 36 Alkaline Phosphatase 50 Total Protein 7.7 Albumin 3.5 Globulin 4.2 Albumin/Globulin Ratio 0.8 L Lipase 17 L PD MEDICAL DECISION MAKING - ED course ED course: 71-year-old gentleman with strokelike symptoms, predominantly aphasia and confusion. Case was discussed with Dr. Peterson, [facility] on arrival and after the results of his CT scan. He has increased risk of bleeding because of his Crohn's disease, but after prolonged discussion of the risks and benefits with the patient and his they opted for TPA. We did need to control his blood pressure prior to the administration of TPA with labetalol, divided doses With control of his blood pressure allowing TPA to be given. He was accepted to [facility] ICU by Dr. Roca. Records from last visit were printed by me as they are relevant to this presentation to be sent along with today's records with him to [facility]. [place] were completed. After the TPA infusion he did have significant improvement in his aphasia. While we are waiting for [facility] to confirm the bed which there was a delay for , ioana felt the weather change and was no longer able to fly and so one [facility] did confirm the bed we were left with only the option for stat ground transport. - Critical Care Time(min): 40 Time Includes: Direct patient care, Review records, Reassess patient, Document care, Coordinate care, Medical consult, Family consult for tx dec Data interpretation: Prior EKG Procedures included in critical care time: Peripheral IV Procedures excluded from critical care time: EKG Departure - Departure Disposition: 02 Transfer Acute Care Hosp Clinical Impression: Cerebrovascular accident (CVA) Qualifiers: CVA mechanism: embolism Precerebral and cerebral artery: unspecified precerebral artery Qualified Code(s): I63.10 - Cerebral infarction due to embolism of unspecified precerebral artery Condition: Serious
[2017-10-29] MEDS ORDERED: LABETALOL 20 MG/4 ML SYRINGE IVP STA ×2 (20:15→20:53)
--- NOTE | 2017-10-29 20:35 | CT Report ---
EXAM: CT HEAD EXAM DATE: 10/29/2017 08:22 PM. CLINICAL HISTORY: Aphasia. Slurred speech. COMPARISON: 10/25/2017. TECHNIQUE: Multiaxial CT images were obtained from the foramen magnum to the vertex. Reformats: Coron al. IV contrast: None. In accordance with CT protocol optimization, one or more of the following dose reduction techniques w ere utilized for this exam: automated exposure control, adjustment of mA and/or KV based on patient s ize, or use of iterative reconstructive technique. FINDINGS: Parenchyma: No intraparenchymal hemorrhage. No evidence of mass, midline shift, or CT findings of acu te infarction. [place]-white differentiation is distinct. Stable chronic microangiopathic white matter c hanges are evident. Extraaxial Spaces: Normal for age. No subdural or epidural collections identified. Ventricles: The ventricles and cortical sulci are enlarged, consistent with age-related tissue loss. Sinuses and orbits: Imaged paranasal sinuses, orbits, and mastoids show no significant abnormality. Bones: No evidence of fracture or calvarial defect. Other: None. IMPRESSION: Stable age-related cortical atrophic changes and ventriculomegaly without evidence of acu te intracranial abnormality. [facility] The call report notification system was initiated by Dr. Minesh Segura at 20:28 hrs on 10/29/17. The above findings were discussed with Dr. Juárez by Dr. Minesh Segura at 20:34 hrs on 10/29/17. Referring Provider Line: [phone] SITE ID: [id number]
[2017-10-29 20:42] LABS: BASOPHILS % (AUTO) 1.2 %; EOSINOPHILS % (AUTO) 5.8 %; HGB - HEMOGLOBIN 11.5 g/dL (14.0-18.0); LYMPHOCYTES % (AUTO) 31.7 %; MEAN CORPUSCULAR HEMOGLOBIN 27.7 pg (27.0-31.0); MEAN CORPUSCULAR VOLUME 86.6 fL (80.0-94.0); MEAN PLATELET VOLUME 8.1 fL (7.4-11.4); MONOCYTES % (AUTO) 13.3 %; PLT - PLATELET COUNT 373 10^3/uL (130-450); RED BLOOD COUNT 4.14 10^6/uL (4.70-6.10); RED CELL DISTRIBUTION WIDTH 19.1 % (12.0-15.0); WHITE BLOOD COUNT 6.9 x10^3/uL (4.8-10.8)
[2017-10-29] MEDS ORDERED: WATER FOR INJECTION STERILE IV STA (20:42)
[2017-10-29] MEDS ORDERED: ALTEPLASE IV STA (20:42)
[2017-10-29 20:48] LABS: INR 1.1 (0.8-1.2); PT - PROTHROMBIN TIME 12.7 secs (9.9-12.6)
[2017-10-29] MEDS ORDERED: ALTEPLASE 100 MG VIAL ONE (20:53)
[2017-10-29 20:54] LABS: ALBUMIN 3.5 g/dL (3.2-5.5); ALBUMIN/GLOBULIN RATIO 0.8 (1.0-2.2); BILIRUBIN,TOTAL 0.3 mg/dL (0.2-1.0); CALCIUM 9.3 mg/dL (8.5-10.3); CREATININE 0.9 mg/dL (0.6-1.2); TOTAL PROTEIN 7.7 g/dL (6.7-8.2)
[2017-10-29] MEDS ORDERED: LABETALOL 20 MG/4 ML SYRINGE IVP ONE (21:01)
[2017-10-29 21:05] LABS: ABNORMAL LYMPHS % (MANUAL) 0 %; BAND NEUTROPHILS % (MANUAL) 0 %
[2017-10-29 21:08] LABS: BASOPHILS # (MANUAL) 0.2 10^3/uL (0-0.1); BASOPHILS % (MANUAL) 3 %; DIFFERENTIAL COMMENT MANUAL DIFFERENTIAL; EOSINOPHILS # (MANUAL) 0.2 10^3/uL (0-0.7); LYMPHOCYTES # (MANUAL) 2.5 10^3/uL (1.5-3.5); LYMPHOCYTES % (MANUAL) 36 %; NEUTROPHILS % (MANUAL) 43 %; PLATELET ESTIMATE, MANUAL NORMAL (130-450,000) (NORMAL); PLATELET MORPHOLOGY NORMAL APPEARANCE (NORMAL); RBC MORPHOLOGY (MULTIPLE) NORMAL APPEARANCE (NORMAL)
[2017-10-29] MEDS ORDERED: ACETAMINOPHEN 325 MG TABLET PO STA (21:54)
[2017-10-29 22:44] VITALS: BP 176/83
== END 2017-10-29 22:50 | disposition short-term general hospital (02) ==
LOC: EDUNIT# → ED 19:55
DX: I63.10 Cerebral infarction due to embolism of unspecified precerebral artery (principal); R47.02 Dysphasia; J45.909 Unspecified asthma, uncomplicated; K50.90 Crohn's disease, unspecified, without complications; E78.00 Pure hypercholesterolemia, unspecified; Z79.82 Long term (current) use of aspirin; Z87.891 Personal history of nicotine dependence
CPT/HCPCS: 36415; 70450; 80053; 83690; 85025; 85610; 93005; 96361; 96374; 99291; A9270; J2997; 99285

== ENCOUNTER 2017-10-29 22:38 | Outpatient (CLI) | payer MEDICARE, OTHER | END 2017-10-29 22:39 | disposition short-term general hospital (02) | LOC: EMS 22:38 | PROVIDERS: ATTEND Surgery | DX: I63.9 Cerebral infarction, unspecified (principal); R51 Headache; R47.9 Unspecified speech disturbances | CPT/HCPCS: A0425; A0427; A0429 ==

== ENCOUNTER 2017-11-09 11:24 | Emergency (ER) | payer MEDICARE, OTHER ==
[2017-11-09 12:17] LABS: BASOPHILS % (AUTO) 0.4 %; EOSINOPHILS # (AUTO) 0.2 10^3/uL (0.0-0.7); LYMPHOCYTES # (AUTO) 1.7 10^3/uL (1.5-3.5); LYMPHOCYTES % (AUTO) 29.6 %; MEAN CORPUSCULAR HEMOGLOBIN 29.9 pg (27.0-31.0); MEAN CORPUSCULAR HGB CONC 33.5 g/dL (32.0-36.0); MEAN CORPUSCULAR VOLUME 89.2 fL (80.0-94.0); MEAN PLATELET VOLUME 7.9 fL (7.4-11.4); MONOCYTES # (AUTO) 0.8 10^3/uL (0.0-1.0); PLT - PLATELET COUNT 410 10^3/uL (130-450); RED BLOOD COUNT 4.34 10^6/uL (4.70-6.10); RED CELL DISTRIBUTION WIDTH 18.1 % (12.0-15.0); WHITE BLOOD COUNT 5.8 x10^3/uL (4.8-10.8)
[2017-11-09 12:33] LABS: ALBUMIN/GLOBULIN RATIO 0.9 (1.0-2.2); BILIRUBIN,TOTAL 0.9 mg/dL (0.2-1.0); CALCIUM 9.7 mg/dL (8.5-10.3); CREATININE 1.1 mg/dL (0.6-1.2); TOTAL PROTEIN 8.4 g/dL (6.7-8.2)
[2017-11-09 12:48] LABS: BILIRUBIN,URINE NEGATIVE (NEGATIVE); GLUCOSE, URINE (UA) NEGATIVE (NEGATIVE); KETONES,URINE (UA) NEGATIVE (NEGATIVE); LEUKOCYTE ESTERASE, URINE NEGATIVE (NEGATIVE); NITRITE,URINE NEGATIVE (NEGATIVE); OCCULT BLOOD,URINE NEGATIVE (NEGATIVE); PROTEIN,URINE NEGATIVE (NEGATIVE); UROBILINOGEN,URINE 0.2 (NORMAL) E.U./dL (NORMAL)
[2017-11-09 12:55] LABS: CLARITY,URINE CLEAR (CLEAR)
--- NOTE | 2017-11-09 13:42 | ED Physician Documentation ---
PD HPI SYNCOPE - Stated complaint Stated Complaint: SNYCOPE/LT SIDE NUMBNESS - Chief complaint Chief Complaint: Neuro - History obtained from History obtained from: Patient, Family - History of Present Illness Witnessed: Witnessed Timing - onset: Today Duration: Seconds (5-10) Preceding symptoms: Vision changes (dim vision), Light headed, Generalized weakness. No: Chest pain, Palpitations, Diaphoresis, Abdominal pain Associated symptoms: No: Seizure, Incontinant of urine, Incontinant of stool, Headache, Chest pain, Palpitations, Abdominal pain Contributing factors: Just stood up (stood up from bed, walked to the bathroom, felt lightheaded, weak, called out to and passed out. No injury. did not strike head.) Injury occurred: No: Fell, Head injury, Neck injury, Bit tongue Pain level max: 0 Pain level now: 0 Similar symptoms before: Has not had sx before Recently seen: Emergency Dept (TIA and possible stroke recently.) Review of Systems Ten Systems: 10 systems reviewed and negative Constitutional: denies: Fever, Chills Ears: denies: Ear pain Nose: denies: Rhinorrhea / runny nose, Congestion Throat: denies: Sore throat Cardiac: denies: Chest pain / pressure, Palpitations, Pedal edema, Calf pain Respiratory: denies: Cough GI: denies: Abdominal Pain, Nausea, Vomiting, Diarrhea : denies: Dysuria, Frequency, Hesitancy Skin: denies: Rash Musculoskeletal: denies: Neck pain, Back pain Neurologic: denies: Focal weakness, Numbness, Difficulty speaking, Confused, Altered mental status, Headache, Head injury, LOC PD PAST MEDICAL HISTORY - Past Medical History Cardiovascular: High cholesterol Respiratory: Asthma Neuro: None Endocrine/Autoimmune: None GI: GI bleed, Crohn's disease : None HEENT: None Psych: None Musculoskeletal: None Derm: Psoriasis - Past Surgical History Past Surgical History: Yes General: Appendectomy, Bowel surgery, Colonoscopy Ortho: Shoulder arthroplasty, Arthroscopic surgery - Present Medications Home Medications: Ambulatory Orders Medication Instructions Recorded Confirmed Multivitamin [Multi-Day Vitamins] 1 tab PO DAILY 11/26/12 10/25/17 Ascorbate Calcium/Bioflavonoid 500 mg PO DAILY 07/03/15 10/25/17 [Janet-C 1,000 mg Tablet] Folic Acid 400 mcg PO DAILY 07/03/15 10/25/17 Magnesium Oxide [Magnesium] 500 mg PO BID 07/03/15 10/25/17 [place]-3/Dha/Epa/Fish Oil [Fish Oil 1,400 mg PO DAILY 07/03/15 10/25/17 1,000 mg Softgel] Chlorpheniramine Maleate [Allergy 4 mg PO BID 05/29/17 10/25/17 4-Hour] L. Acidophilus/Pectin, [place] 1 each PO BID 05/29/17 10/25/17 [Acidophilus Capsule] Phenylephrine HCl [Nasal 10 mg PO BID PRN 05/29/17 10/25/17 Decongestant PE] Calcium Carbonate [Tums (Calcium 1,000 - 2,000 mg PO DAILY 06/02/17 10/25/17 Carbonate 500mg)] Potassium Gluconate 595 mg PO DAILY 06/02/17 10/25/17 raNITIdine [Zantac] 150 mg PO BID 06/02/17 10/25/17 Acetaminophen/Diphenhydramine [Sm 0.5 tab PO QPM 06/03/17 10/25/17 Pain Reliever Pm Caplet] Aspirin [Aspirin EC] 81 mg PO DAILY 10/01/17 10/25/17 Ferrous Gluconate 324 mg PO DAILY 10/01/17 10/25/17 Mesalamine [Delzicol] 1,200 mg PO BID 10/01/17 10/25/17 azaTHIOprine [Imuran] 100 mg PO QPM 10/15/17 10/25/17 Cholecalciferol (Vitamin D3) 400 unit PO BID 10/25/17 10/25/17 [Vitamin D3] Amlodipine Besylate [Norvasc] 2.5 mg PO DAILY #30 tablet 10/26/17 - Allergies Allergies/Adverse Reactions: Allergies Allergy/AdvReac Type Severity Reaction Status Date / Time hydrocodone [Hydrocodone] Allergy Hives Verified 10/29/17 20:08 Sulfa (Sulfonamide Allergy Hives Verified 10/29/17 20:08 Antibiotics) hydromorphone HCl * AdvReac Respiratory Verified 10/29/17 20:08 [From Dilaudid] simvastatin AdvReac weakness, Verified 10/29/17 20:08 can't walk - Social History Does the pt smoke?: No Smoking Status: Never smoker Does the pt drink ETOH?: No Does the pt have substance abuse?: No - Immunizations Immunizations are current?: Yes - POLST Patient has POLST: No PD ED PE NORMAL - Vitals Vital signs reviewed: Yes - General General: Alert and oriented X 3, No acute distress, Well developed/nourished - HEENT HEENT: Atraumatic, PERRL, EOMI, Ears normal, Moist mucous membranes, Pharynx benign - Neck Neck: Supple, no meningeal sign, No bony TTP - Cardiac Cardiac: RRR, No murmur, Strong equal pulses - Respiratory Respiratory: No respiratory distress, Clear bilaterally - Abdomen Abdomen: Soft, Non tender, Non distended - Back Back: No spinal TTP - Derm Derm: Warm and dry, No rash - Extremities Extremities: No edema, No calf tenderness / cord - Neuro Neuro: Alert and oriented X 3, 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, No motor deficit, No sensory deficit, Normal speech Eye Opening: Spontaneous Motor: Obeys Commands Verbal: Oriented GCS Score: 15 - Psych Psych: Normal mood, Normal affect Results - Vitals Vitals: Vital Signs - 24 hr 11/09/17 11/09/17 11/09/17 11:32 13:15 13:59 Temperature 36.7 C 36.7 C Heart Rate 82 72 76 Respiratory 18 17 16 Rate Blood Pressure 145/85 H 183/87 H 162/89 H O2 Saturation 97 97 97 Oxygen O2 Source Room air - EKG (time done) 1145 Rate: Rate (enter#) (68) Rhythm: NSR [place]: Normal Intervals: Normal [place] QRS: Normal Ischemia: Normal ST segments Computer interpretation: Agree with computer - Labs Labs: Laboratory Tests 11/09/17 11/09/17 11/09/17 12:13 12:13 12:13 WBC 5.8 RBC 4.34 L Hgb 13.0 L Hct 38.7 L MCV 89.2 MCH 29.9 MCHC 33.5 RDW 18.1 H Plt Count 410 MPV 7.9 Neut # 3.0 Lymph # 1.7 [place] # 0.8 Eos # 0.2 Baso # 0.0 Absolute Nucleated RBC 0.00 Nucleated RBC % 0.0 Sodium 135 Potassium 4.7 Chloride 101 Carbon Dioxide 26 Anion Gap 8.0 BUN 18 Creatinine 1.1 Estimated GFR (MDRD) 66 L Glucose 106 H Calcium 9.7 Total Bilirubin 0.9 AST 33 ALT 25 Alkaline Phosphatase 53 Troponin I < 0.04 Total Protein 8.4 H Albumin 4.0 Globulin 4.4 H Albumin/Globulin Ratio 0.9 L Lipase 32 Urine Color Urine Clarity Urine pH Ur Specific [place] Urine Protein Urine Glucose (UA) Urine Ketones Urine Occult Blood Urine Nitrite Urine Bilirubin Urine Urobilinogen Ur Leukocyte Esterase Ur Microscopic Review Urine Culture Comments 11/09/17 12:45 WBC RBC Hgb Hct MCV MCH MCHC RDW Plt Count MPV Neut # Lymph # [place] # Eos # Baso # Absolute Nucleated RBC Nucleated RBC % Sodium Potassium Chloride Carbon Dioxide Anion Gap BUN Creatinine Estimated GFR (MDRD) Glucose Calcium Total Bilirubin AST ALT Alkaline Phosphatase Troponin I Total Protein Albumin Globulin Albumin/Globulin Ratio Lipase Urine Color YELLOW Urine Clarity CLEAR Urine pH 7.0 Ur Specific [place] 1.010 Urine Protein NEGATIVE Urine Glucose (UA) NEGATIVE Urine Ketones NEGATIVE Urine Occult Blood NEGATIVE Urine Nitrite NEGATIVE Urine Bilirubin NEGATIVE Urine Urobilinogen 0.2 (NORMAL) Ur Leukocyte Esterase NEGATIVE Ur Microscopic Review NOT INDICATED Urine Culture Comments NOT INDICATED PD MEDICAL DECISION MAKING - ED course Complexity details: reviewed results, re-evaluated patient, considered differential, d/w patient, d/w family, d/w PMD ED course: Patient is a 71-year-old gentleman who presents to the emergency department with syncope today. Unclear etiology, possible vasovagal, possible arrhythmia. Recommended to the patient and his family that the stay for telemetry monitoring in the hospital to monitor for any life-threatening arrhythmias. Patient does not want to stay for this. He states he will follow-up closely with his doctor and understands that he may have a lethal arrhythmia in the meantime which could cause him . also sates understanding of this. I discussed the case with Dr. Varela who recommend the patient call his office today for expedited follow-up. Patient and family were informed they are welcome to return at any time should they change their mind. Patient and family counseled regarding signs and symptoms for which I believe and urgent re- evaluation would be necessary. Patient with good understanding of and agreement to plan and is comfortable going home at this time This document was made in part using voice recognition software. While efforts are made to proofread this document, sound alike and grammatical errors may occur. Departure - Departure Disposition: 01 Home, Self Care Clinical Impression: Syncope Qualifiers: Syncope type: unspecified Qualified Code(s): R55 - Syncope and collapse Condition: Good Instructions: ED Fainting Unkn Cause Follow-Up: Vidal Varela MD [Primary Care Provider] - Comments: We discussed staying in the hospital today for telemetry monitoring for potential arrhythmia as a cause for your passing out today. You have elected to not stay in the hospital and accept the risk that this could result in a lethal arrhythmia that could potentially kill you at home. It is recommended strongly that you follow-up very closely with Dr. Varela for Holter monitor and return immediately if you worsen. I spoke with Dr. Varela today and he wants you to call his office today when you leave so that they can see you as soon as possible. You are welcome to return at any time if you change your mind about further monitoring and evaluation. Discharge Date/Time: 11/09/17 14:03
[2017-11-09 13:59] VITALS: BP 162/89
== END 2017-11-09 14:03 | disposition home or self-care (01) ==
LOC: ED 11:24
DX: R55 Syncope and collapse (principal); E78.00 Pure hypercholesterolemia, unspecified
CPT/HCPCS: 36415; 80053; 81001; 81003; 83690; 84484; 85025; 87086; 93005; 99284

== ENCOUNTER 2017-12-31 12:23 | Outpatient (CLI) | payer MEDICARE, OTHER ==
[2017-12-31 13:07] LABS: HEMOGLOBIN A1C 0.52 g/dL; HEMOGLOBIN A1C % 5.5 % (4.6-6.2)
[2017-12-31 13:21] LABS: CHOL/HDL RATIO 4.7 (<5.0); CHOLESTEROL 208 mg/dL; HDL CHOLESTEROL 44 mg/dL; LDL CHOLESTEROL,CALCULATED 145 mg/dL; LDL/HDL RATIO 3.3 (<3.6); VLDL CHOLESTEROL 19 mg/dL
[2017-12-31 13:22] LABS: ALBUMIN 3.7 g/dL (3.2-5.5); ALBUMIN/GLOBULIN RATIO 0.9 (1.0-2.2); ALKALINE PHOSPHATASE 56 IU/L (42-121); ALT ALANINE AMINOTRANSFERASE 17 IU/L (10-60); AST ASPARTATE AMINOTRANSFERASE 26 IU/L (10-42); BILIRUBIN,TOTAL 0.7 mg/dL (0.2-1.0); BUN - BLOOD UREA NITROGEN 21 mg/dL (6-20); CALCIUM 9.6 mg/dL (8.5-10.3); CARBON DIOXIDE - CO2 26 mmol/L (21-32); CHLORIDE 100 mmol/L (101-111); CREATININE 1.1 mg/dL (0.6-1.2); GFR - MDRD 65 (>89); GLUCOSE 83 mg/dL (70-100); SODIUM 132 mmol/L (135-145); TOTAL PROTEIN 7.9 g/dL (6.7-8.2)
[2017-12-31 13:25] LABS: BASOPHILS # (AUTO) 0.1 10^3/uL (0.0-0.1); BASOPHILS % (AUTO) 1.2 %; EOSINOPHILS # (AUTO) 0.3 10^3/uL (0.0-0.7); EOSINOPHILS % (AUTO) 5.4 %; HGB - HEMOGLOBIN 12.5 g/dL (14.0-18.0); LYMPHOCYTES % (AUTO) 34.4 %; MEAN CORPUSCULAR HEMOGLOBIN 29.9 pg (27.0-31.0); MEAN CORPUSCULAR HGB CONC 32.8 g/dL (32.0-36.0); MEAN CORPUSCULAR VOLUME 91.3 fL (80.0-94.0); MEAN PLATELET VOLUME 8.9 fL (7.4-11.4); MONOCYTES # (AUTO) 0.9 10^3/uL (0.0-1.0); MONOCYTES % (AUTO) 15.4 %; NEUTROPHILS # (AUTO) 2.5 10^3/uL (1.5-6.6); NEUTROPHILS % (AUTO) 43.6 %; PLT - PLATELET COUNT 303 10^3/uL (130-450); RED BLOOD COUNT 4.17 10^6/uL (4.70-6.10); RED CELL DISTRIBUTION WIDTH 15.7 % (12.0-15.0); WHITE BLOOD COUNT 5.8 x10^3/uL (4.8-10.8)
[2017-12-31 13:52] LABS: CRP - C-REACTIVE PROTEIN < 1.0 mg/dL (0-1.0)
== END 2017-12-31 12:24 | disposition home or self-care (01) ==
LOC: LAB 12:23
PROVIDERS: ATTEND Internal Medicine
DX: E78.5 Hyperlipidemia, unspecified (principal); I10 Essential (primary) hypertension; R73.01 Impaired fasting glucose; K50.114 Crohn's disease of large intestine with abscess; K50.90 Crohn's disease, unspecified, without complications
CPT/HCPCS: 36415; 80053; 80061; 83036; 83721; 83993; 85025; 85651; 86140

== ENCOUNTER 2017-12-31 13:43 | Outpatient (CLI) | payer MEDICARE, OTHER | END 2017-12-31 13:44 | disposition home or self-care (01) | LOC: LAB.R 13:43 | PROVIDERS: ATTEND Internal Medicine | DX: K50.90 Crohn's disease, unspecified, without complications (principal) | CPT/HCPCS: 83993 ==

== ENCOUNTER 2018-03-04 13:38 | Outpatient (CLI) | payer MEDICARE, OTHER ==
[2018-03-04 13:58] LABS: BASOPHILS # (AUTO) 0.1 10^3/uL (0.0-0.1); BASOPHILS % (AUTO) 1.3 %; EOSINOPHILS # (AUTO) 0.3 10^3/uL (0.0-0.7); EOSINOPHILS % (AUTO) 4.3 %; HGB - HEMOGLOBIN 11.6 g/dL (14.0-18.0); LYMPHOCYTES % (AUTO) 32.5 %; MEAN CORPUSCULAR HEMOGLOBIN 31.4 pg (27.0-31.0); MEAN CORPUSCULAR HGB CONC 34.7 g/dL (32.0-36.0); MEAN CORPUSCULAR VOLUME 90.5 fL (80.0-94.0); MEAN PLATELET VOLUME 8.3 fL (7.4-11.4); MONOCYTES # (AUTO) 0.7 10^3/uL (0.0-1.0); MONOCYTES % (AUTO) 11.8 %; NEUTROPHILS % (AUTO) 50.1 %; PLT - PLATELET COUNT 273 10^3/uL (130-450); RED CELL DISTRIBUTION WIDTH 14.1 % (12.0-15.0); WHITE BLOOD COUNT 6.1 x10^3/uL (4.8-10.8)
[2018-03-04 14:23] LABS: ALBUMIN 3.6 g/dL (3.2-5.5); ALBUMIN/GLOBULIN RATIO 0.9 (1.0-2.2); ALKALINE PHOSPHATASE 51 IU/L (42-121); ALT ALANINE AMINOTRANSFERASE 21 IU/L (10-60); AST ASPARTATE AMINOTRANSFERASE 34 IU/L (10-42); BILIRUBIN,TOTAL 0.9 mg/dL (0.2-1.0); BUN - BLOOD UREA NITROGEN 20 mg/dL (6-20); CALCIUM 9.6 mg/dL (8.5-10.3); CARBON DIOXIDE - CO2 24 mmol/L (21-32); CHLORIDE 104 mmol/L (101-111); CREATININE 1.2 mg/dL (0.6-1.2); GFR - MDRD 59 (>89); GLUCOSE 114 mg/dL (70-100); SODIUM 135 mmol/L (135-145); TOTAL PROTEIN 7.6 g/dL (6.7-8.2)
[2018-03-04 14:24] LABS: CRP - C-REACTIVE PROTEIN < 1.0 mg/dL (0-1.0)
== END 2018-03-04 13:39 | disposition home or self-care (01) ==
LOC: LAB 13:38
PROVIDERS: ATTEND Internal Medicine
DX: K50.114 Crohn's disease of large intestine with abscess (principal)
CPT/HCPCS: 36415; 80053; 85025; 85651; 86140

== ENCOUNTER 2018-04-22 08:00 | Outpatient (CLI) | payer MEDICARE, OTHER | END 2018-04-22 08:01 | LOC: LAB.R 08:00 | PROVIDERS: ATTEND Internal Medicine | DX: K50.90 Crohn's disease, unspecified, without complications (principal) | CPT/HCPCS: 83993 ==

== ENCOUNTER 2018-08-17 08:00 | Outpatient (CLI) | payer MEDICARE, OTHER | END 2018-08-17 23:59 | disposition home or self-care (01) | LOC: LAB.R 08:00 | PROVIDERS: ATTEND Internal Medicine | DX: K50.90 Crohn's disease, unspecified, without complications (principal) | CPT/HCPCS: 83993 ==

== ENCOUNTER 2018-09-08 12:24 | Emergency (ER) | payer MEDICARE, OTHER ==
--- NOTE | 2018-09-08 12:57 | CT Report ---
Reason: slurred speech, word finding difficulties Procedure Date: 09/08/2018 Accession Number: [id number] / [id number] Procedure: CT - Head W/O Stroke Protocol CPT Code: FULL RESULT: EXAM: CT HEAD EXAM DATE: 09/08/2018 12:46 PM. CLINICAL HISTORY: Slurred speech, word finding difficulties. COMPARISON: HEAD W/O STROKE PROTOCOL 10/29/2017 8:15 PM. TECHNIQUE: Multiaxial CT images were obtained from the foramen magnum to the vertex. Reformats: Sagittal and coronal. IV contrast: None. In accordance with CT protocol optimization, one or more of the following dose reduction techniques were utilized for this exam: automated exposure control, adjustment of mA and/or KV based on patient size, or use of iterative reconstructive technique. FINDINGS: Parenchyma: Diffuse parenchymal volume loss. Periventricular regions of low attenuation. No evidence of an acute parenchymal hemorrhage. No definitive evidence for an acute vascular insult. No midline shift. No mass-effect. Extraaxial Spaces: Prominent extra-axial spaces. No subdural or epidural collections identified. Ventricles: Ventricles are diffusely enlarged, as before. Third ventricle measures 15 mm and previously measured 15 mm. Overall size is stable. Sinuses and Orbits: Imaged paranasal sinuses, orbits, and mastoids show no significant abnormality. Bones: No evidence of fracture or calvarial defect. Other: Changes are seen from bilateral globe surgery. Vascular calcifications. IMPRESSION: 1. No acute intracranial abnormality is identified. 2. Parenchymal volume loss and chronic white matter changes and ventriculomegaly without significant change. RADIA The call report notification system was initiated by Dr. Evan Gary at 12:54 PM on 09/08/2018. The above findings were discussed with Jovanni Prado by Dr. Evan Gary at 12:56 PM on 09/08/2018.
[2018-09-08 13:39] LABS: BILIRUBIN,URINE NEGATIVE (NEGATIVE); GLUCOSE, URINE (UA) NEGATIVE (NEGATIVE); KETONES,URINE (UA) NEGATIVE (NEGATIVE); LEUKOCYTE ESTERASE, URINE NEGATIVE (NEGATIVE); NITRITE,URINE NEGATIVE (NEGATIVE); OCCULT BLOOD,URINE NEGATIVE (NEGATIVE); PH,URINE 7.5 PH (5.0-7.5); PROTEIN,URINE NEGATIVE (NEGATIVE); UROBILINOGEN,URINE 0.2 (NORMAL) E.U./dL (NORMAL)
[2018-09-08 13:40] LABS: CLARITY,URINE CLEAR (CLEAR)
[2018-09-08] MEDS ORDERED: KETOROLAC 30 MG/ML VIAL IVP STA (14:33)
[2018-09-08] MEDS ORDERED: diphenhydrAMINE INJ 50 MG/ML VIAL IVP STA (14:34)
[2018-09-08] MEDS ORDERED: PROCHLORPERAZINE 10 MG/2 ML VIAL IVP STA (14:34)
--- NOTE | 2018-09-08 14:42 | ED Physician Documentation ---
PD HPI FOCAL NEURO - Stated complaint Stated Complaint: SLURRED SPEECH/HEADACHE - Chief complaint Chief Complaint: Neuro - History obtained from History obtained from: Patient, Family - History of Present Illness Timing - onset: How many hours ago (2) Timing - duration: Minutes (30) Timing - details: Abrupt onset Severity of deficit: Mild Weakness: No: Face, Arm, Hand, Leg, Foot, Right, Left Numbness: No: Face, Arm, Hand, Leg, Foot, Right, Left Associated symptoms: Headache (L sided behind the L eye). No: Nausea / vomiting, Seizure, Syncope, Fall, Head injury, Chest pain, Neck pain, Back pain, Fever Contributing factors: positive: Anticoagulated (asa 81mg). negative: Vascular dz, Atrial fibrillation, Prosthetic heart valve Baseline status: positive: A&OX3, ambulatory, indep Similar symptoms before: Diagnosis (TIA) Recently seen: Not recently seen Review of Systems Ten Systems: 10 systems reviewed and negative Constitutional: denies: Fever, Chills Eyes: denies: Decreased vision, Photophobia Ears: denies: Ear pain Nose: denies: Rhinorrhea / runny nose, Congestion Throat: denies: Sore throat Cardiac: denies: Chest pain / pressure GI: denies: Nausea, Vomiting, Diarrhea Skin: denies: Rash Musculoskeletal: denies: Neck pain, Back pain Neurologic: denies: Headache PD PAST MEDICAL HISTORY - Past Medical History Cardiovascular: High cholesterol Respiratory: Asthma Neuro: TIA Endocrine/Autoimmune: None GI: GI bleed, Crohn's disease : None HEENT: None Psych: None Musculoskeletal: None Derm: Psoriasis - Past Surgical History Past Surgical History: Yes General: Appendectomy, Bowel surgery, Colonoscopy Ortho: Shoulder arthroplasty, Arthroscopic surgery - Present Medications Home Medications: Ambulatory Orders Medication Instructions Recorded Confirmed Multivitamin [Multi-Day Vitamins] 1 tab PO DAILY 11/26/12 07/23/18 Ascorbate Calcium/Bioflavonoid 500 mg PO DAILY 07/03/15 07/23/18 [Janet-C 1,000 mg Tablet] Folic Acid 400 mcg PO DAILY 07/03/15 07/23/18 Magnesium Oxide [Magnesium] 500 mg PO BID 07/03/15 07/23/18 [place]-3/Dha/Epa/Fish Oil [Fish Oil 1,400 mg PO DAILY 07/03/15 07/23/18 1,000 mg Softgel] Chlorpheniramine Maleate [Allergy 4 mg PO BID 05/29/17 07/23/18 4-Hour] L. Acidophilus/Pectin, [place] 1 each PO BID 05/29/17 07/23/18 [Acidophilus Capsule] Phenylephrine HCl [Nasal 10 mg PO BID PRN 05/29/17 07/23/18 Decongestant PE] Calcium Carbonate [Tums (Calcium 1,000 - 2,000 mg PO DAILY 06/02/17 07/23/18 Carbonate 500mg)] Potassium Gluconate 595 mg PO DAILY 06/02/17 07/23/18 raNITIdine [Zantac] 150 mg PO BID 06/02/17 07/23/18 Acetaminophen/Diphenhydramine [Sm 0.5 tab PO QPM 06/03/17 07/23/18 Pain Reliever Pm Caplet] Aspirin [Aspirin EC] 81 mg PO DAILY 10/01/17 07/23/18 Ferrous Gluconate 324 mg PO DAILY 10/01/17 07/23/18 Mesalamine [Delzicol] 1,200 mg PO BID 10/01/17 07/23/18 azaTHIOprine [Imuran] 100 mg PO QPM 10/15/17 07/23/18 Cholecalciferol (Vitamin D3) 400 unit PO BID 10/25/17 07/23/18 [Vitamin D3] Amlodipine Besylate [Norvasc] 2.5 mg PO DAILY #30 tablet 10/26/17 07/23/18 - Allergies Allergies/Adverse Reactions: Allergies Allergy/AdvReac Type Severity Reaction Status Date / Time hydrocodone [Hydrocodone] Allergy Hives Verified 09/08/18 12:31 Sulfa (Sulfonamide Allergy Hives Verified 09/08/18 12:31 Antibiotics) hydromorphone HCl * AdvReac Respiratory Verified 09/08/18 12:31 [From Dilaudid] simvastatin AdvReac weakness, Verified 09/08/18 12:31 can't walk - Social History Does the pt smoke?: No Smoking Status: Never smoker Does the pt drink ETOH?: No Does the pt have substance abuse?: No - Immunizations Immunizations are current?: Yes - POLST Patient has POLST: No PD ED PE NORMAL - Vitals Vital signs reviewed: Yes - General General: Alert and oriented X 3, No acute distress - HEENT HEENT: Atraumatic, PERRL, EOMI, Ears normal, Moist mucous membranes, Pharynx benign - Neck Neck: Supple, no meningeal sign, No bony TTP - Cardiac Cardiac: RRR, Strong equal pulses - Respiratory Respiratory: No respiratory distress, Clear bilaterally - Abdomen Abdomen: Soft, Non tender, Non distended - Derm Derm: Warm and dry - Neuro Neuro: Alert and oriented X 3, 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, No motor deficit, No sensory deficit, Normal speech - Psych Psych: Normal mood, Normal affect Results - Vitals Vitals: Vital Signs - 24 hr 09/08/18 09/08/18 09/08/18 12:29 13:30 16:05 Temperature 36.7 C Heart Rate 79 78 78 Respiratory 18 16 18 Rate Blood Pressure 169/99 H 137/89 H O2 Saturation 96 95 99 Oxygen O2 Source Room air - EKG (time done) 1257 Rate: Rate (enter#) (81) Rhythm: NSR [place]: Normal Intervals: Normal [place] Ischemia: Normal ST segments - Labs Labs: Laboratory Tests 09/08/18 09/08/18 09/08/18 13:20 15:17 15:17 WBC 6.1 RBC 4.23 L Hgb 12.2 L Hct 38.0 L MCV 89.9 MCH 28.8 MCHC 32.0 RDW 15.5 H Plt Count 307 MPV 8.0 Neut # (Auto) 3.2 Lymph # (Auto) 1.7 [place] # (Auto) 0.8 Eos # (Auto) 0.3 Baso # (Auto) 0.1 Absolute Nucleated RBC 0.00 Nucleated RBC % 0.0 PT 12.9 H INR 1.2 APTT 35.7 H Sodium Potassium Chloride Carbon Dioxide Anion Gap BUN Creatinine Estimated GFR (MDRD) Glucose Calcium Total Bilirubin AST ALT Alkaline Phosphatase Total Protein Albumin Globulin Albumin/Globulin Ratio Lipase Urine Color YELLOW Urine Clarity CLEAR Urine pH 7.5 Ur Specific [place] <=1.005 Urine Protein NEGATIVE Urine Glucose (UA) NEGATIVE Urine Ketones NEGATIVE Urine Occult Blood NEGATIVE Urine Nitrite NEGATIVE Urine Bilirubin NEGATIVE Urine Urobilinogen 0.2 (NORMAL) Ur Leukocyte Esterase NEGATIVE Ur Microscopic Review NOT INDICATED Urine Culture Comments NOT INDICATED 09/08/18 15:17 WBC RBC Hgb Hct MCV MCH MCHC RDW Plt Count MPV Neut # (Auto) Lymph # (Auto) [place] # (Auto) Eos # (Auto) Baso # (Auto) Absolute Nucleated RBC Nucleated RBC % PT INR APTT Sodium 139 Potassium 4.2 Chloride 99 L Carbon Dioxide 26 Anion Gap 14.0 H BUN 21 H Creatinine 0.9 Estimated GFR (MDRD) 82 L Glucose 103 H Calcium 9.6 Total Bilirubin 0.7 AST 34 ALT 29 Alkaline Phosphatase 44 Total Protein 7.8 Albumin 3.4 Globulin 4.3 H Albumin/Globulin Ratio 0.8 L Lipase 33 Urine Color Urine Clarity Urine pH Ur Specific [place] Urine Protein Urine Glucose (UA) Urine Ketones Urine Occult Blood Urine Nitrite Urine Bilirubin Urine Urobilinogen Ur Leukocyte Esterase Ur Microscopic Review Urine Culture Comments - Rads (name of study) CT head Radiology: Prelim report reviewed, EMP read contemporaneously, See rad report (no acute intracranial abnormality) PD MEDICAL DECISION MAKING - ED course Complexity details: reviewed results, re-evaluated patient, considered differential, d/w patient ED course: Patient is a 72-year-old male with a left-sided headache today and difficulty with word finding. This resolved prior to arrival but the headache continued. Headache was treated in the emergency department and resolved. Reviewed his prior history, with a very similar presentations. Also discussed the case with [facility] neurology and reviewed their findings there. After further discussion a nd reviewing his history, it appears likely that this represents complex migraines rather than true TIAs or strokes. We will have him follow-up with his doctor for further evaluation and care. Patient counseled regarding signs and symptoms for which I believe and urgent re-evaluation would be necessary. Patient with good understanding of and agreement to plan and is comfortable going home at this time This document was made in part using voice recognition software. While efforts are made to proofread this document, sound alike and grammatical errors may occur. Departure - Departure Disposition: Home, Self Care Clinical Impression: Migraine Qualifiers: Migraine type: unspecified Status migrainosus presence: without status migrainosus Intractability: not intractable Qualified Code(s): G43.909 - Migraine, unspecified, not intractable, without status migrainosus Condition: Good Instructions: ED Headache Migraine Follow-Up: Vidal Varela MD [Primary Care Provider] - Within 1 week Comments: Return if you worsen. follow up with your doctor within 1 week. Discharge Date/Time: 09/08/18 16:05
[2018-09-08 15:24] LABS: BASOPHILS # (AUTO) 0.1 10^3/uL (0.0-0.1); BASOPHILS % (AUTO) 1.2 %; EOSINOPHILS # (AUTO) 0.3 10^3/uL (0.0-0.7); EOSINOPHILS % (AUTO) 4.4 %; HGB - HEMOGLOBIN 12.2 g/dL (14.0-18.0); LYMPHOCYTES # (AUTO) 1.7 10^3/uL (1.5-3.5); LYMPHOCYTES % (AUTO) 27.4 %; MEAN CORPUSCULAR HEMOGLOBIN 28.8 pg (27.0-31.0); MEAN CORPUSCULAR VOLUME 89.9 fL (80.0-94.0); MONOCYTES # (AUTO) 0.8 10^3/uL (0.0-1.0); MONOCYTES % (AUTO) 13.5 %; NEUTROPHILS # (AUTO) 3.2 10^3/uL (1.5-6.6); NEUTROPHILS % (AUTO) 53.5 %; PLT - PLATELET COUNT 307 10^3/uL (130-450); RED BLOOD COUNT 4.23 10^6/uL (4.70-6.10); RED CELL DISTRIBUTION WIDTH 15.5 % (12.0-15.0); WHITE BLOOD COUNT 6.1 x10^3/uL (4.8-10.8)
[2018-09-08 15:35] LABS: INR 1.2 (0.8-1.2); PT - PROTHROMBIN TIME 12.9 secs (9.9-12.6)
[2018-09-08 15:43] LABS: ALBUMIN 3.4 g/dL (3.2-5.5); ALBUMIN/GLOBULIN RATIO 0.8 (1.0-2.2); BILIRUBIN,TOTAL 0.7 mg/dL (0.2-1.0); CALCIUM 9.6 mg/dL (8.5-10.3); CREATININE 0.9 mg/dL (0.6-1.2); TOTAL PROTEIN 7.8 g/dL (6.7-8.2)
[2018-09-08 16:05] VITALS: BP 137/89
== END 2018-09-08 16:05 | disposition home or self-care (01) ==
LOC: ED 12:24
DX: G43.909 Migraine, unspecified, not intractable, without status migrainosus (principal); Z86.73 Personal history of transient ischemic attack (TIA), and cerebral infarction without residual deficits; Z79.82 Long term (current) use of aspirin
CPT/HCPCS: 36415; 70450; 80053; 81003; 83690; 85025; 85610; 85730; 93005; 96374; 96375; 99283; 99284; J1200; 81001; 87086

== ENCOUNTER 2018-11-10 08:25 | Day surgery (SDC) | payer MEDICARE, OTHER ==
[2018-11-10] MEDS ORDERED: LACTATED RINGERS 1,000 ML IV ONE (08:31)
[2018-11-10] MEDS ORDERED: MIDAZOLAM 2 MG/2 ML VIAL IVP ONE (09:52)
[2018-11-10] MEDS ORDERED: fentaNYL 250 MCG/5 ML VIAL IVP ONE (09:52)
[2018-11-10 10:55] VITALS: BP 134/85
== END 2018-11-10 08:26 | disposition home or self-care (01) ==
LOC: SDS 08:25
PROVIDERS: ATTEND Internal Medicine
PROC: 0DBE8ZX Excision of Large Intestine, Via Natural or Artificial Opening Endoscopic, Diagnostic (ICD-10-PCS; 2018-11-10)
PROC: 0DBP8ZX Excision of Rectum, Via Natural or Artificial Opening Endoscopic, Diagnostic (ICD-10-PCS; principal; 2018-11-10 09:30)
DX: K50.90 Crohn's disease, unspecified, without complications (principal); K57.30 Diverticulosis of large intestine without perforation or abscess without bleeding; K64.8 Other hemorrhoids
CPT/HCPCS: 45380; J7120

== ENCOUNTER 2019-07-03 06:01 | Outpatient (CLI) | payer MEDICARE, OTHER | END 2019-07-03 06:02 | disposition critical access hospital (66) | LOC: EMS 06:01 | PROVIDERS: ATTEND Surgery | DX: R51 Headache (principal); R47.01 Aphasia | CPT/HCPCS: A0425; A0429 ==

== ENCOUNTER 2019-07-03 06:13 | Emergency (ER) | payer MEDICARE, OTHER ==
--- NOTE | 2019-07-03 06:14 | ED Physician Documentation ---
PD HPI HEADACHE - Stated complaint Stated Complaint: POSS STROKE - Chief complaint Chief Complaint: Neuro PD PAST MEDICAL HISTORY - Past Medical History Cardiovascular: High cholesterol Respiratory: Asthma Neuro: TIA Endocrine/Autoimmune: None GI: GI bleed, Crohn's disease : None HEENT: None Psych: None Musculoskeletal: None Derm: Psoriasis - Past Surgical History Past Surgical History: Yes General: Appendectomy, Bowel surgery, Colonoscopy Ortho: Shoulder arthroplasty, Arthroscopic surgery - Present Medications Home Medications: Ambulatory Orders Medication Instructions Recorded Confirmed Multivitamin [Multi-Day Vitamins] 1 tab PO DAILY 11/26/12 06/30/19 Ascorbate Calcium/Bioflavonoid 500 mg PO DAILY 07/03/15 06/30/19 [Janet-C 1,000 mg Tablet] Folic Acid 400 mcg PO DAILY 07/03/15 06/30/19 Magnesium Oxide [Magnesium] 500 mg PO BID 07/03/15 06/30/19 [place]-3/Dha/Epa/Fish Oil [Fish Oil 1,400 mg PO DAILY 07/03/15 06/30/19 1,000 mg Softgel] Chlorpheniramine Maleate [Allergy 4 mg PO BID 05/29/17 06/30/19 4-Hour] L. Acidophilus/Pectin, [place] 1 each PO BID 05/29/17 06/30/19 [Acidophilus Capsule] Phenylephrine HCl [Nasal 10 mg PO BID PRN 05/29/17 06/30/19 Decongestant PE] Calcium Carbonate [Tums (Calcium 1,000 - 2,000 mg PO DAILY 06/02/17 06/30/19 Carbonate 500mg)] Potassium Gluconate 595 mg PO DAILY 06/02/17 06/30/19 raNITIdine [Zantac] 150 mg PO BID 06/02/17 06/30/19 Aspirin [Aspirin EC] 81 mg PO DAILY 10/01/17 06/30/19 Ferrous Gluconate 324 mg PO DAILY 10/01/17 06/30/19 Mesalamine [Delzicol] 1,200 mg PO BID 10/01/17 06/30/19 azaTHIOprine [Imuran] 100 mg PO QPM 10/15/17 06/30/19 Cholecalciferol (Vitamin D3) 400 unit PO BID 10/25/17 06/30/19 [Vitamin D3] Amlodipine Besylate [Norvasc] 2.5 mg PO DAILY #30 tablet 10/26/17 06/30/19 - Allergies Allergies/Adverse Reactions: Allergies Allergy/AdvReac Type Severity Reaction Status Date / Time hydrocodone [Hydrocodone] Allergy Hives Verified 06/30/19 12:02 Sulfa (Sulfonamide Allergy Hives Verified 06/30/19 12:02 Antibiotics) hydromorphone HCl * AdvReac Respiratory Verified 06/30/19 12:02 [From Dilaudid] simvastatin AdvReac weakness, Verified 06/30/19 12:02 can't walk - Social History Does the pt smoke?: No Smoking Status: Never smoker Does the pt drink ETOH?: No Does the pt have substance abuse?: No - Immunizations Immunizations are current?: Yes - POLST Patient has POLST: No Results - Vitals Vitals: Oxygen O2 Source Room air
--- NOTE | 2019-07-03 06:43 | CT Report ---
Reason: headache, weakness Procedure Date: 07/03/2019 Accession Number: [id number] / [id number] Procedure: CT - Head W/O Stroke Protocol CPT Code: Final Report FULL RESULT: EXAM: CT HEAD EXAM DATE: 07/03/2019 06:20 AM. CLINICAL HISTORY: Headache, weakness. COMPARISON: CT HEAD W/O STROKE PROTOCOL 09/08/2018 12:45 PM. TECHNIQUE: Multiaxial CT images were obtained from the foramen magnum to the vertex. Reformats: Sagittal and coronal. IV contrast: None. In accordance with CT protocol optimization, one or more of the following dose reduction techniques were utilized for this exam: automated exposure control, adjustment of mA and/or KV based on patient size, or use of iterative reconstructive technique. FINDINGS: Parenchyma: No intraparenchymal hemorrhage. No evidence of mass, midline shift, or CT findings of acute infarction. Juarez-white differentiation is distinct. Moderate to severe chronic microvascular change throughout the white matter of both renal hemispheres appear similar to the prior CT. Extraaxial Spaces: Moderate generalized cerebral volume loss appears stable. No subdural or epidural collections identified. Ventricles: Moderate enlargement of the lateral and third ventricles is unchanged compared to the prior CT. Third ventricle measures approximately 15 mm in transverse diameter. Temporal horns are mildly dilated. Ventricular size is out of proportion to sulcal size over the convexity. This is unchanged but raises the possibility of underlying normal pressure hydrocephalus. This may also be related to central volume loss. Sinuses and Orbits: Imaged paranasal sinuses, orbits, and mastoids show no significant abnormality. Bones: No evidence of fracture or calvarial defect. Other: None. IMPRESSION: 1. No CT evidence of an acute intracranial abnormality and no significant change compared to previous CT head 09/08/2018. 2. Moderate generalized cerebral volume loss and moderate to severe chronic microvascular change appears stable. 3. Ventriculomegaly out of proportion to sulcal size raises the possibility of normal pressure hydrocephalus. This could also be due to central volume loss. Please correlate clinically. This is also unchanged compared to the prior CT. RADIA The critical test notification system was initiated by Dr. Von Spann at 06:33 AM on 07/03/2019. The above critical test findings were discussed with Curt Murphy by Dr. Von Spann at 06:38 AM on 07/03/2019.
[2019-07-03] MEDS ORDERED: SODIUM CHLORIDE 0.9% 1,000 ML IV ONE (06:58)
[2019-07-03] MEDS ORDERED: KETOROLAC 15 MG/ML VIAL IVP STA (06:58)
[2019-07-03 07:14] LABS: BASOPHILS # (AUTO) 0.1 10^3/uL (0.0-0.1); BASOPHILS % (AUTO) 0.9 %; EOSINOPHILS # (AUTO) 0.2 10^3/uL (0.0-0.7); EOSINOPHILS % (AUTO) 4.4 %; HGB - HEMOGLOBIN 12.7 g/dL (14.0-18.0); LYMPHOCYTES # (AUTO) 1.4 10^3/uL (1.5-3.5); LYMPHOCYTES % (AUTO) 26.1 %; MEAN CORPUSCULAR HGB CONC 32.2 g/dL (32.0-36.0); MEAN CORPUSCULAR VOLUME 93.2 fL (80.0-94.0); MEAN PLATELET VOLUME 9.6 fL (7.4-11.4); MONOCYTES # (AUTO) 0.5 10^3/uL (0.0-1.0); MONOCYTES % (AUTO) 8.8 %; NEUTROPHILS # (AUTO) 3.2 10^3/uL (1.5-6.6); NEUTROPHILS % (AUTO) 59.4 %; PLT - PLATELET COUNT 356 10^3/uL (130-450); RED BLOOD COUNT 4.24 10^6/uL (4.70-6.10); RED CELL DISTRIBUTION WIDTH 15.1 % (12.0-15.0); WHITE BLOOD COUNT 5.5 x10^3/uL (4.8-10.8)
[2019-07-03] MEDS ORDERED: PROCHLORPERAZINE 10 MG/2 ML VIAL IVP STA (07:27)
[2019-07-03 07:31] LABS: ALBUMIN 3.4 g/dL (3.2-5.5); ALBUMIN/GLOBULIN RATIO 0.8 (1.0-2.2); CALCIUM 9.4 mg/dL (8.5-10.3); CREATININE 0.9 mg/dL (0.6-1.2); MAGNESIUM 2.3 mg/dL (1.7-2.8); TOTAL PROTEIN 7.9 g/dL (6.7-8.2)
[2019-07-03 09:53] VITALS: BP 172/85
--- NOTE | 2019-07-03 09:56 | ED Physician Documentation ---
PD HPI HEADACHE - Stated complaint Stated Complaint: POSS STROKE - Chief complaint Chief Complaint: Neuro - History obtained from History obtained from: Patient, Family - History of Present Illness Timing - onset: How many hours ago (1 1/2) Timing - onset during: Sleep (was just awakening or awoken early with symptoms and early headache.) Timing - duration: Minutes (30) Timing - details: Abrupt onset Worst headache ever?: No: Worst headache ever? Location: Left Quality: Throbbing, Stabbing Associated symptoms: Weakness (left sided), Other (trouble speaking). No: Fever, Stiff neck, Nausea Worsened by: Light Contributing factors: No: Anticoagulated, Hypertension, Recent illness, Trauma Similar symptoms before: Diagnosis (has had similar episodes, this being the 4th one. The prior ones were initially thought to be TIAs with eval of angios/CT/MRI with normal eval. Had been found to have 70% vertebral stenosis but good flow from other side and no distal filling defect. Otherwise normal. The last episode October 2018, was Dx as possible complex migraine as each episode has had significant headache with it. Rx with Rizatryptan to take for episode. He did take this at onset of today symptoms and was feeling improved in neuro symptoms and headache down to mild at time of ED arrival (was improving by EMS arrival). They had called EMS and took the migraine med at same time.) Review of Systems Constitutional: denies: Fever, Chills Nose: denies: Rhinorrhea / runny nose, Congestion Throat: denies: Sore throat Respiratory: denies: Cough GI: reports: Nausea. denies: Vomiting, Diarrhea Neurologic: reports: Focal weakness, Confused, Headache. denies: Numbness, Near syncope, Head injury, LOC PD PAST MEDICAL HISTORY - Past Medical History Cardiovascular: High cholesterol Respiratory: Asthma Neuro: TIA, Migraines Endocrine/Autoimmune: None GI: GI bleed, Crohn's disease : None HEENT: None Psych: None Musculoskeletal: None Derm: Psoriasis - Past Surgical History Past Surgical History: Yes General: Appendectomy, Bowel surgery, Colonoscopy Ortho: Shoulder arthroplasty, Arthroscopic surgery - Present Medications Home Medications: Ambulatory Orders Medication Instructions Recorded Confirmed Multivitamin [Multi-Day Vitamins] 1 tab PO DAILY 11/26/12 06/30/19 Ascorbate Calcium/Bioflavonoid 500 mg PO DAILY 07/03/15 06/30/19 [Janet-C 1,000 mg Tablet] Folic Acid 400 mcg PO DAILY 07/03/15 06/30/19 Magnesium Oxide [Magnesium] 500 mg PO BID 07/03/15 06/30/19 [place]-3/Dha/Epa/Fish Oil [Fish Oil 1,400 mg PO DAILY 07/03/15 06/30/19 1,000 mg Softgel] Chlorpheniramine Maleate [Allergy 4 mg PO BID 05/29/17 06/30/19 4-Hour] L. Acidophilus/Pectin, [place] 1 each PO BID 05/29/17 06/30/19 [Acidophilus Capsule] Phenylephrine HCl [Nasal 10 mg PO BID PRN 05/29/17 06/30/19 Decongestant PE] Calcium Carbonate [Tums (Calcium 1,000 - 2,000 mg PO DAILY 06/02/17 06/30/19 Carbonate 500mg)] Potassium Gluconate 595 mg PO DAILY 06/02/17 06/30/19 raNITIdine [Zantac] 150 mg PO BID 06/02/17 06/30/19 Aspirin [Aspirin EC] 81 mg PO DAILY 10/01/17 06/30/19 Ferrous Gluconate 324 mg PO DAILY 10/01/17 06/30/19 Mesalamine [Delzicol] 1,200 mg PO BID 10/01/17 06/30/19 azaTHIOprine [Imuran] 100 mg PO QPM 10/15/17 06/30/19 Cholecalciferol (Vitamin D3) 400 unit PO BID 10/25/17 06/30/19 [Vitamin D3] Amlodipine Besylate [Norvasc] 2.5 mg PO DAILY #30 tablet 10/26/17 06/30/19 - Allergies Allergies/Adverse Reactions: Allergies Allergy/AdvReac Type Severity Reaction Status Date / Time hydrocodone [Hydrocodone] Allergy Hives Verified 07/03/19 06:15 Sulfa (Sulfonamide Allergy Hives Verified 07/03/19 06:15 Antibiotics) hydromorphone HCl * AdvReac Respiratory Verified 07/03/19 06:15 [From Dilaudid] simvastatin AdvReac weakness, Verified 07/03/19 06:15 can't walk - Social History Does the pt smoke?: No Smoking Status: Never smoker Does the pt drink ETOH?: No Does the pt have substance abuse?: No - Immunizations Immunizations are current?: Yes - POLST Patient has POLST: No PD ED PE NORMAL - Vitals Vital signs reviewed: Yes - General General: Alert and oriented X 3, No acute distress (talking clearly with some mild headache still at ED arrival. No focal weakness. ), Well developed/nourished - HEENT HEENT: Atraumatic, PERRL (light sensitive), Pharynx benign - Neck Neck: Supple, no meningeal sign, No adenopathy, No bruit - Cardiac Cardiac: RRR, No murmur - Respiratory Respiratory: Clear bilaterally - Abdomen Abdomen: Soft, Non tender - Derm Derm: Normal color, Warm and dry - Extremities Extremities: No deformity, No tenderness to palpate, Normal ROM s pain, No edema, No calf tenderness / cord - Neuro Neuro: Alert and oriented X 3, therapeutic recreation director 2-12 intact, No motor deficit, No sensory deficit, Normal speech Eye Opening: Spontaneous Motor: Obeys Commands Verbal: Oriented GCS Score: 15 - Psych Psych: Normal mood Results - Vitals Vitals: Vital Signs - 24 hr 07/03/19 07/03/19 07/03/19 06:23 07:30 08:44 Temperature 36.9 C Heart Rate 83 84 90 Respiratory 14 14 16 Rate Blood Pressure 189/97 H 183/88 H O2 Saturation 97 96 95 07/03/19 09:53 Temperature Heart Rate 95 Respiratory 16 Rate Blood Pressure 172/85 H O2 Saturation 96 Oxygen O2 Source Room air - Labs Labs: Laboratory Tests 07/03/19 07/03/19 07/03/19 07:05 07:05 07:05 WBC 5.5 RBC 4.24 L Hgb 12.7 L Hct 39.5 L MCV 93.2 MCH 30.0 MCHC 32.2 RDW 15.1 H Plt Count 356 MPV 9.6 Neut # (Auto) 3.2 Lymph # (Auto) 1.4 L [place] # (Auto) 0.5 Eos # (Auto) 0.2 Baso # (Auto) 0.1 Absolute Nucleated RBC 0.00 Nucleated RBC % 0.0 ESR 37 H Sodium 138 Potassium 3.8 Chloride 101 Carbon Dioxide 28 Anion Gap 9.0 BUN 18 Creatinine 0.9 Estimated GFR (MDRD) 82 L Glucose 124 H Calcium 9.4 Magnesium 2.3 Total Bilirubin 1.0 AST 38 ALT 40 Alkaline Phosphatase 48 Total Protein 7.9 Albumin 3.4 Globulin 4.5 H Albumin/Globulin Ratio 0.8 L Lipase 29 - Rads (name of study) head CT Radiology: Prelim report reviewed (no acute bleeding nor acute change), See rad report PD MEDICAL DECISION MAKING - ED course Complexity details: reviewed old records, reviewed results, re-evaluated patient (feeling improved with minimal residual headache and no deficits. ), considered differential (focal deficit with headache, but with prior similar and negative acute workups on prior episodes October 2017 and October 2018 here. Last appt with Neuro was ? complex migraines and Rx with Rizatryptan. He took that today and was improving enroute to ER. Could be was improving anyway or due to med. Remaining headache improved with migraine type approach of Toradol and Compazine. 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 TIA could be similar so continue your aspirin daily. Otherwise stay well-hydrated and continue usual medicines. For your next episode try the migraine medicine again and give it about a half an hour to see if it improves your symptoms. Return if other symptoms are concerning. Discharge Date/Time: 07/03/19 10:09 NIHSS - Level of Consciousness Level of consciousness: (0) Alert, Keenly responsive LOC Questions: (0) Answers both Q's correct LOC Commands: (0) Performs both correctly - Gaze Best Gaze: (0) Normal - Visual Visual: (0) No loss - Facial Palsy Facial Palsy: (0) Normal, symmetrical movement - Motor Arms (both separate) Motor Arm (right): (0) No drift Motor Arm (left): (0) No drift - Motor Legs (both separate) Motor Leg (right): (0) No drift Motor Leg (left): (0) No drift - Limb Ataxia Limb Ataxia: (0) Absent - Sensory Sensory: (0) Normal - Best Language Best Language: (0) No aphasia - Dysarthria Dysarthria: (0) Normal - Extinction and Inattention (formally neg Extinction and inattention: (0) No abnormality - Total Score/Results Total Score/Result: 0
== END 2019-07-03 10:09 | disposition home or self-care (01) ==
LOC: EDUNIT# → ED 06:13
DX: G43.409 Hemiplegic migraine, not intractable, without status migrainosus (principal); R41.0 Disorientation, unspecified; R29.898 Other symptoms and signs involving the musculoskeletal system; R47.9 Unspecified speech disturbances; Z86.73 Personal history of transient ischemic attack (TIA), and cerebral infarction without residual deficits; Z79.82 Long term (current) use of aspirin
CPT/HCPCS: 36415; 70450; 80053; 83690; 83735; 85025; 85651; 93005; 96361; 96374; 96375; 99284

== ENCOUNTER 2020-03-08 10:26 | Outpatient (CLI) | payer MEDICARE, OTHER ==
[2020-03-08 10:51] LABS: BASOPHILS # (AUTO) 0.1 10^3/uL (0.0-0.1); EOSINOPHILS # (AUTO) 0.2 10^3/uL (0.0-0.7); EOSINOPHILS % (AUTO) 3.1 %; HGB - HEMOGLOBIN 12.7 g/dL (14.0-18.0); LYMPHOCYTES % (AUTO) 17.8 %; MEAN CORPUSCULAR HEMOGLOBIN 30.5 pg (27.0-31.0); MEAN CORPUSCULAR HGB CONC 32.5 g/dL (32.0-36.0); MEAN CORPUSCULAR VOLUME 93.8 fL (80.0-94.0); MEAN PLATELET VOLUME 10.1 fL (7.4-11.4); MONOCYTES # (AUTO) 0.8 10^3/uL (0.0-1.0); MONOCYTES % (AUTO) 13.7 %; NEUTROPHILS # (AUTO) 3.7 10^3/uL (1.5-6.6); NEUTROPHILS % (AUTO) 63.9 %; PLT - PLATELET COUNT 317 10^3/uL (130-450); RED BLOOD COUNT 4.17 10^6/uL (4.70-6.10); RED CELL DISTRIBUTION WIDTH 14.7 % (12.0-15.0); WHITE BLOOD COUNT 5.8 x10^3/uL (4.8-10.8)
[2020-03-08 11:31] LABS: ALBUMIN 3.6 g/dL (3.2-5.5); ALBUMIN/GLOBULIN RATIO 0.9 (1.0-2.2); BILIRUBIN,TOTAL 0.6 mg/dL (0.2-1.0); CALCIUM 10.2 mg/dL (8.5-10.3); CRP - C-REACTIVE PROTEIN 1.1 mg/dL (0-1.0); FERRITIN 38.7 ng/mL (23.9-336.2); TOTAL PROTEIN 7.7 g/dL (6.7-8.2)
== END 2020-03-08 10:27 | disposition home or self-care (01) ==
LOC: LAB 10:26
PROVIDERS: ATTEND Internal Medicine
DX: E55.9 Vitamin D deficiency, unspecified (principal); R53.83 Other fatigue; K50.90 Crohn's disease, unspecified, without complications
CPT/HCPCS: 36415; 80053; 82306; 82607; 82728; 83540; 84466; 84630; 85025; 85651; 86140

== ENCOUNTER 2020-05-28 10:34 | Outpatient (CLI) | payer MEDICARE, OTHER ==
[2020-05-28 10:52] LABS: BASOPHILS # (AUTO) 0.1 10^3/uL (0.0-0.1); BASOPHILS % (AUTO) 0.8 %; EOSINOPHILS # (AUTO) 0.2 10^3/uL (0.0-0.7); HGB - HEMOGLOBIN 12.9 g/dL (14.0-18.0); LYMPHOCYTES # (AUTO) 1.3 10^3/uL (1.5-3.5); LYMPHOCYTES % (AUTO) 20.7 %; MEAN CORPUSCULAR HEMOGLOBIN 29.7 pg (27.0-31.0); MEAN CORPUSCULAR HGB CONC 31.3 g/dL (32.0-36.0); MEAN CORPUSCULAR VOLUME 94.7 fL (80.0-94.0); MEAN PLATELET VOLUME 9.9 fL (7.4-11.4); MONOCYTES # (AUTO) 0.9 10^3/uL (0.0-1.0); MONOCYTES % (AUTO) 14.4 %; NEUTROPHILS # (AUTO) 3.8 10^3/uL (1.5-6.6); NEUTROPHILS % (AUTO) 60.6 %; PLT - PLATELET COUNT 305 10^3/uL (130-450); RED BLOOD COUNT 4.35 10^6/uL (4.70-6.10); RED CELL DISTRIBUTION WIDTH 14.7 % (12.0-15.0); WHITE BLOOD COUNT 6.2 x10^3/uL (4.8-10.8)
[2020-05-28 11:10] LABS: ALBUMIN 3.5 g/dL (3.2-5.5); ALBUMIN/GLOBULIN RATIO 0.8 (1.0-2.2); BILIRUBIN,TOTAL 0.9 mg/dL (0.2-1.0); CALCIUM 9.8 mg/dL (8.5-10.3); CREATININE 1.2 mg/dL (0.6-1.2); CRP - C-REACTIVE PROTEIN 1.2 mg/dL (0-1.0); TOTAL PROTEIN 7.7 g/dL (6.7-8.2)
== END 2020-05-28 10:35 | disposition home or self-care (01) ==
LOC: LAB 10:34
PROVIDERS: ATTEND Internal Medicine
DX: K50.114 Crohn's disease of large intestine with abscess (principal)
CPT/HCPCS: 36415; 80053; 85025; 85651; 86140

== ENCOUNTER 2020-10-28 20:14 | Emergency (ER) | payer MEDICARE, OTHER ==
--- NOTE | 2020-10-28 20:47 | ED Physician Documentation ---
History of Present Illness - Stated complaint Stated Complaint: CONSTIPATION - Chief complaint Chief Complaint: Abd Pain - History obtained from History obtained from: Patient - History of Present Illness Timing: Today Pain level max: 0 Pain level now: 0 - Additonal information Additional information: 74 year old male, states constipated today. tried an enema at home without relief. No vomiting. No abdominal pain. States he feels the stool in his rectum. Review of Systems Constitutional: denies: Fever Respiratory: denies: Cough GI: denies: Nausea, Vomiting, Diarrhea Skin: denies: Rash Musculoskeletal: denies: Neck pain, Back pain Neurologic: denies: Headache PD PAST MEDICAL HISTORY - Past Medical History Cardiovascular: High cholesterol Respiratory: Asthma Neuro: TIA, Migraines Endocrine/Autoimmune: None GI: GI bleed, Crohn's disease : None HEENT: None Psych: None Musculoskeletal: None Derm: Psoriasis - Past Surgical History Past Surgical History: Yes General: Appendectomy, Bowel surgery, Colonoscopy Ortho: Shoulder arthroplasty, Arthroscopic surgery - Present Medications Home Medications: Ambulatory Orders Medication Instructions Recorded Confirmed Multivitamin [Multi-Day Vitamins] 1 tab PO DAILY 11/26/12 10/28/20 Ascorbate Calcium/Bioflavonoid 1,000 mg PO TID 07/03/15 10/28/20 [Janet-C 1,000 mg Tablet] Folic Acid 800 mcg PO DAILY 07/03/15 10/28/20 Magnesium Oxide [Magnesium] 500 mg PO BID 07/03/15 10/28/20 [place]-3/Dha/Epa/Fish Oil [Fish Oil 1,400 mg PO DAILY 07/03/15 10/28/20 1,000 mg Softgel] Chlorpheniramine Maleate [Allergy 4 mg PO BID PRN 05/29/17 10/28/20 4-Hour] L. Acidophilus/Pectin, [place] 1 each PO BID 05/29/17 10/28/20 [Acidophilus Capsule] Phenylephrine HCl [Nasal 10 mg PO BID PRN 05/29/17 10/28/20 Decongestant PE] Calcium Carbonate [Tums (Calcium 1,000 - 2,000 mg PO DAILY PRN 06/02/17 10/28/20 Carbonate 500mg)] Potassium Gluconate 595 mg PO DAILY 06/02/17 10/28/20 Aspirin [Aspirin EC] 81 mg PO DAILY 10/01/17 10/28/20 azaTHIOprine [Imuran] 175 mg PO QPM 10/15/17 10/28/20 Cholecalciferol (Vitamin D3) 1,000 unit PO DAILY 10/25/17 10/28/20 [Vitamin D3] Fexofenadine HCl 180 mg PO DAILY PM 10/28/20 10/28/20 Mesalamine [Asacol Hd] 400 mg PO 10/28/20 - Allergies Allergies/Adverse Reactions: Allergies Allergy/AdvReac Type Severity Reaction Status Date / Time hydrocodone [Hydrocodone] Allergy Hives Verified 10/28/20 22:01 Sulfa (Sulfonamide Allergy Hives Verified 10/28/20 22:01 Antibiotics) hydromorphone HCl * AdvReac Respiratory Verified 10/28/20 22:01 [From Dilaudid] simvastatin AdvReac weakness, Verified 10/28/20 22:01 can't walk - Social History Does the pt smoke?: No Smoking Status: Never smoker Does the pt drink ETOH?: No Does the pt have substance abuse?: No - Immunizations Immunizations are current?: Yes - POLST Patient has POLST: No PD ED PE NORMAL - Vitals Vital signs reviewed: Yes - General General: Alert and oriented X 3, No acute distress - HEENT HEENT: Moist mucous membranes - Neck Neck: Supple, no meningeal sign - Cardiac Cardiac: RRR, Strong equal pulses - Respiratory Respiratory: No respiratory distress, Clear bilaterally - Abdomen Abdomen: Soft, Non tender, Non distended - Back Back: No CVA TTP, No spinal TTP - Derm Derm: Warm and dry - Extremities Extremities: No edema - Neuro Neuro: Alert and oriented X 3 - Psych Psych: Normal mood, Normal affect Results - Vitals Vitals: Vital Signs - 24 hr 10/28/20 20:21 Temperature 36.2 C L Heart Rate 102 H Respiratory 18 Rate Blood Pressure 179/93 H O2 Saturation 93 Oxygen O2 Source Room air PD MEDICAL DECISION MAKING - ED course Complexity details: re-evaluated patient, considered differential, d/w patient ED course: Patient with constipation today Resolved with an enema. Feels much better. Patient is well-appearing, nontoxic. Afebrile. No evidence of bowel obstruction. Patient counseled regarding signs and symptoms for which I believe and urgent re-evaluation would be necessary. Patient with good understanding of and agreement to plan and is comfortable going home at this time This document was made in part using voice recognition software. While efforts are made to proofread this document, sound alike and grammatical errors may occur. Departure - Departure Disposition: 01 Home, Self Care Clinical Impression: Constipation Qualifiers: Constipation type: unspecified constipation type Qualified Code(s): K59.00 - Constipation, unspecified Condition: Good Instructions: ED Constipation Follow-Up: Vidal Varela MD [Primary Care Provider] - As Needed Comments: Drink plenty of water at home. Return if you worsen.
[2020-10-28] MEDS ORDERED: MINERAL OIL ENEMA 133 ML BOTTLE RC STA (21:06)
[2020-10-28] MEDS ORDERED: SOAP SUDS ENEMA 1 EACH RC ONE (21:30)
[2020-10-28 22:32] VITALS: BP 153/103
--- OUTSIDE RECORDS SUMMARY | 2020-10-31 02:47 | EXTERNAL MEDICAL SUMMARY RPT | Continuity of Care Document ---
:1945 Demographics Phone Unavailable Preferred Language Unknown Marital Status Unknown Sikhism Affiliation Unknown Race Unknown Ethnic Group Unknown Author Organization [facility] Address [address] [place] [address] Phone Social History date description facility [id number]
== END 2020-10-28 23:00 | disposition home or self-care (01) ==
LOC: ED 20:14
DX: K59.00 Constipation, unspecified (principal); Z79.82 Long term (current) use of aspirin
CPT/HCPCS: 99281; 99282; A9270

== ENCOUNTER 2021-04-27 17:02 | Emergency (ER) | payer MEDICARE, OTHER ==
[2021-04-27 18:49] LABS: BASOPHILS # (AUTO) 0.1 10^3/uL (0.0-0.1); BASOPHILS % (AUTO) 0.8 %; EOSINOPHILS # (AUTO) 0.2 10^3/uL (0.0-0.7); EOSINOPHILS % (AUTO) 2.7 %; HCT - HEMATOCRIT 45.3 % (42.0-52.0); HGB - HEMOGLOBIN 14.5 g/dL (14.0-18.0); LYMPHOCYTES # (AUTO) 1.6 10^3/uL (1.5-3.5); LYMPHOCYTES % (AUTO) 20.7 %; MEAN CORPUSCULAR HEMOGLOBIN 30.1 pg (27.0-31.0); MEAN CORPUSCULAR VOLUME 94.2 fL (80.0-94.0); MEAN PLATELET VOLUME 9.9 fL (7.4-11.4); MONOCYTES % (AUTO) 13.2 %; NEUTROPHILS # (AUTO) 4.9 10^3/uL (1.5-6.6); NEUTROPHILS % (AUTO) 62.1 %; PLT - PLATELET COUNT 289 10^3/uL (130-450); RED BLOOD COUNT 4.81 10^6/uL (4.70-6.10); WHITE BLOOD COUNT 7.9 x10^3/uL (4.8-10.8)
[2021-04-27 18:59] LABS: ALBUMIN 4.3 g/dL (3.2-5.5); ALBUMIN/GLOBULIN RATIO 0.9 (1.0-2.2); BILIRUBIN,TOTAL 0.9 mg/dL (0.2-1.0); CALCIUM 10.3 mg/dL (8.5-10.3); CREATININE 1.4 mg/dL (0.6-1.2); POTASSIUM 4.1 mmol/L (3.5-5.0); TOTAL PROTEIN 9.2 g/dL (6.7-8.2)
--- NOTE | 2021-04-27 19:18 | ED Physician Documentation ---
PD HPI HEADACHE - Stated complaint Stated Complaint: CONFUSED,MIGRAINE - Chief complaint Chief Complaint: Neuro - History obtained from History obtained from: Patient - History of Present Illness Timing - onset: Enter time (06:00), Yesterday Timing - duration: Days Timing - details: Abrupt onset Pain level max: 6 Pain level now: 0 Worst headache ever?: No: Worst headache ever? Location: Global Quality: Throbbing, Aching Associated symptoms: No: Fever, Stiff neck, Nausea, Vomiting, Weakness, Numbness, Syncope, Seizure, Eye pain, Vision changes Improved by: Nothing Contributing factors: No: Anticoagulated, Possible carbon monoxide Similar symptoms before: Diagnosis (previous episodes thought to be TIA but then possibly complex migraines) - Additional information Additional information: patient says he has had similar episodes over past 4 years; his HPI is slightly limited as part of the presentation, as he has intermittent difficulty getting words out/articulating thoughts, word recall. He says that at 6 AM yesterday, he woke with a mild/moderate generalized heada latoya which coincided with the above language difficulty. He says he took two pills (per patient) for these symptoms but this did not seem to resolve the symptoms although the headache did resolve by the end of the day yesterday (his difficulty with articulating/word finding persists, and patients thinks he is even a little confused today). He denies any other neurologic symptoms such as weakness, numbness, visual changes. Review of Systems Constitutional: reports: Reviewed and negative Eyes: reports: Reviewed and negative Ears: reports: Reviewed and negative Nose: reports: Reviewed and negative Throat: reports: Reviewed and negative Cardiac: reports: Reviewed and negative Respiratory: reports: Reviewed and negative GI: reports: Reviewed and negative : reports: Reviewed and negative Skin: reports: Reviewed and negative Neurologic: reports: Difficulty speaking (expressive aphasia (able to speak, but seems to be having difficulty with word-finding and/or articulating what is in his head)), Headache (resolved). denies: Generalized weakness, Focal weakness, Numbness, Near syncope, Syncope, Seizure, Confused, Altered mental status, Unresponsive, Head injury, LOC PD PAST MEDICAL HISTORY - Past Medical History Cardiovascular: High cholesterol Respiratory: Asthma Neuro: TIA, Migraines Endocrine/Autoimmune: None GI: GI bleed, Crohn's disease : None HEENT: None Psych: None Musculoskeletal: None Derm: Psoriasis - Past Surgical History Past Surgical History: Yes General: Appendectomy, Bowel surgery, Colonoscopy Ortho: Shoulder arthroplasty, Arthroscopic surgery - Present Medications Home Medications: Ambulatory Orders Medication Instructions Recorded Confirmed Multivitamin [Multi-Day Vitamins] 1 tab PO DAILY 11/26/12 04/27/21 Ascorbate Calcium/Bioflavonoid 1,000 mg PO TID 07/03/15 04/27/21 [Janet-C 1,000 mg Tablet] Folic Acid 800 mcg PO DAILY 07/03/15 04/27/21 Magnesium Oxide [Magnesium] 500 mg PO BID 07/03/15 04/27/21 [place]-3/Dha/Epa/Fish Oil [Fish Oil 1,400 mg PO DAILY 07/03/15 04/27/21 1,000 mg Softgel] Chlorpheniramine Maleate [Allergy 4 mg PO BID PRN 05/29/17 04/27/21 4-Hour] L. Acidophilus/Pectin, [place] 1 each PO BID 05/29/17 04/27/21 [Acidophilus Capsule] Phenylephrine HCl [Nasal 10 mg PO BID PRN 05/29/17 04/27/21 Decongestant PE] Calcium Carbonate [Tums (Calcium 1,000 - 2,000 mg PO DAILY PRN 06/02/17 04/27/21 Carbonate 500mg)] Potassium Gluconate 595 mg PO DAILY 06/02/17 04/27/21 Aspirin [Aspirin EC] 81 mg PO DAILY 10/01/17 04/27/21 azaTHIOprine [Imuran] 175 mg PO QID 10/15/17 04/27/21 Cholecalciferol (Vitamin D3) 1,000 unit PO DAILY 10/25/17 04/27/21 [Vitamin D3] Fexofenadine HCl 180 mg PO DAILY PM 10/28/20 04/27/21 Mesalamine [Asacol Hd] 1,200 mg PO BID 10/28/20 04/27/21 L. Acidophilus/L. Rhamnosus 1 tab PO DAILY 03/22/21 04/27/21 [Probiotic 15 Billion Cell Cap] Mecobalamin [B12 Active] 1 tab PO DAILY 03/22/21 04/27/21 - Allergies Allergies/Adverse Reactions: Allergies Allergy/AdvReac Type Severity Reaction Status Date / Time hydrocodone [Hydrocodone] Allergy Hives Verified 04/27/21 17:25 Sulfa (Sulfonamide Allergy Hives Verified 04/27/21 17:25 Antibiotics) hydromorphone HCl * AdvReac Respiratory Verified 04/27/21 17:25 [From Dilaudid] simvastatin AdvReac weakness, Verified 04/27/21 17:25 can't walk - Social History Does the pt smoke?: No Smoking Status: Never smoker Does the pt drink ETOH?: No Does the pt have substance abuse?: No - Immunizations Immunizations are current?: Yes - POLST Patient has POLST: No PD ED PE NORMAL - Vitals Vital signs reviewed: Yes - General General: Alert and oriented X 3 (AAOx3, although states he is 71 years old, including when given second attempt (prompted that 71 is incorrect)), No acute distress, Well developed/nourished, Other (during HPI/ROS, he occasionally uses words inappropriate for context, and sometimes cannot come up with certain words, becomes frustrated and gives up with that sentence/word) - HEENT HEENT: Moist mucous membranes - Neck Neck: Supple, no meningeal sign - Cardiac Cardiac: RRR, No murmur - Respiratory Respiratory: No respiratory distress, Clear bilaterally - Abdomen Abdomen: Soft, Non tender, Non distended - Back Back: No CVA TTP - Derm Derm: Normal color, Warm and dry - Neuro Neuro: Alert and oriented X 3, 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, No motor deficit, No sensory deficit, Normal speech Eye Opening: Spontaneous Motor: Obeys Commands Verbal: Oriented GCS Score: 15 - Psych Psych: Normal mood, Normal affect Results - Vitals Vitals: Oxygen O2 Source Room air - Labs Labs: Laboratory Tests 04/27/21 04/27/21 04/27/21 18:43 18:43 18:58 WBC 7.9 RBC 4.81 Hgb 14.5 Hct 45.3 MCV 94.2 H MCH 30.1 MCHC 32.0 RDW 16.0 H Plt Count 289 MPV 9.9 Neut # (Auto) 4.9 Lymph # (Auto) 1.6 [place] # (Auto) 1.0 Eos # (Auto) 0.2 Baso # (Auto) 0.1 Absolute Nucleated RBC 0.00 Nucleated RBC % 0.0 Sodium 138 Potassium 4.1 Chloride 99 L Carbon Dioxide 28 Anion Gap 11.0 BUN 28 H Creatinine 1.4 H Estimated GFR (MDRD) 49 L Glucose 112 H Calcium 10.3 Total Bilirubin 0.9 AST 28 ALT 29 Alkaline Phosphatase 51 Total Protein 9.2 H Albumin 4.3 Globulin 4.9 H Albumin/Globulin Ratio 0.9 L Lipase 30 Urine Color YELLOW Urine Clarity CLEAR Urine pH 6.5 Ur Specific [place] 1.010 Urine Protein NEGATIVE Urine Glucose (UA) NEGATIVE Urine Ketones NEGATIVE Urine Occult Blood NEGATIVE Urine Nitrite NEGATIVE Urine Bilirubin NEGATIVE Urine Urobilinogen 0.2 (NORMAL) Ur Leukocyte Esterase NEGATIVE Ur Microscopic Review NOT INDICATED Urine Culture Comments NOT INDICATED Nasal Adenovirus (PCR) Nasal B. parapertussis DNA (PCR) Nasal Coronavir 229E PCR Nasal Coronavir HKU1 PCR Nasal Coronavir NL63 PCR Nasal Coronavir OC43 PCR Nasal Enterovir/Rhinovir PCR Nasal Influenza B PCR Nasal Influenza A PCR Nasal Parainfluen 1 PCR Nasal Parainfluen 2 PCR Nasal Parainfluen 3 PCR Nasal Parainfluen 4 PCR Nasal RSV (PCR) Nasal B.pertussis DNA PCR Nasal C.pneumoniae (PCR) [place] Human Metapneumo PCR Nasal M.pneumoniae (PCR) Nasal SARS-CoV-2 (PCR) 04/27/21 23:30 WBC RBC Hgb Hct MCV MCH MCHC RDW Plt Count MPV Neut # (Auto) Lymph # (Auto) [place] # (Auto) Eos # (Auto) Baso # (Auto) Absolute Nucleated RBC Nucleated RBC % Sodium Potassium Chloride Carbon Dioxide Anion Gap BUN Creatinine Estimated GFR (MDRD) Glucose Calcium Total Bilirubin AST ALT Alkaline Phosphatase Total Protein Albumin Globulin Albumin/Globulin Ratio Lipase Urine Color Urine Clarity Urine pH Ur Specific [place] Urine Protein Urine Glucose (UA) Urine Ketones Urine Occult Blood Urine Nitrite Urine Bilirubin Urine Urobilinogen Ur Leukocyte Esterase Ur Microscopic Review Urine Culture Comments Nasal Adenovirus (PCR) NOT DETECTED Nasal B. parapertussis DNA (PCR) NOT DETECTED Nasal Coronavir 229E PCR NOT DETECTED Nasal Coronavir HKU1 PCR NOT DETECTED Nasal Coronavir NL63 PCR NOT DETECTED Nasal Coronavir OC43 PCR NOT DETECTED Nasal Enterovir/Rhinovir PCR NOT DETECTED Nasal Influenza B PCR NOT DETECTED Nasal Influenza A PCR NOT DETECTED Nasal Parainfluen 1 PCR NOT DETECTED Nasal Parainfluen 2 PCR NOT DETECTED Nasal Parainfluen 3 PCR NOT DETECTED Nasal Parainfluen 4 PCR NOT DETECTED Nasal RSV (PCR) NOT DETECTED Nasal B.pertussis DNA PCR NOT DETECTED Nasal C.pneumoniae (PCR) NOT DETECTED [place] Human Metapneumo PCR NOT DETECTED Nasal M.pneumoniae (PCR) NOT DETECTED Nasal SARS-CoV-2 (PCR) NOT DETECTED - Rads (name of study) CTA neck Radiology: Prelim report reviewed, See rad report CTA head Radiology: Prelim report reviewed, See rad report PD MEDICAL DECISION MAKING - ED course Complexity details: reviewed old records, reviewed results, re-evaluated patient, considered differential, d/w patient ED course: CTA head has abnormalities that are of uncertain significance, but no obvious and emergent findings such as LVO, ICH, mass. Similarly, CTA neck has 70% stenosis, 50% stenosis, which are probably noncontributory findings. I discussed the case with fashion consultant sales for telestroke, and recomendation is 325mg ASA, 300mg Plavix, and admit for further observation and MRI brain w/wo. This is unavailable at [facility] until Thursday so will need to transfer. D/W neurology fashion consultant sales at [facility] ([facility]), agrees with this plan, recommends hospitalist admit. D/W Dr. Lang at [facility], accepts patient for transfer to [facility]. Patient remained stable during ED stay although he gradually was becoming more confused late in stay, raising question of ing (if not cause of presenting symptoms perhaps contributing or complicating factor). Departure - Departure Disposition: 02 Transfer Acute Care Hosp Clinical Impression: Stroke-like symptoms Condition: Stable Discharge Date/Time: 04/28/21 01:28 NIHSS - Time Time: 21:00 - Level of Consciousness Level of consciousness: (0) Alert, Keenly responsive LOC Questions: (1) Answers one Q correctly LOC Commands: (0) Performs both correctly - Gaze Best Gaze: (0) Normal - Visual Visual: (0) No loss - Facial Palsy Facial Palsy: (0) Normal, symmetrical movement - Motor Arms (both separate) Motor Arm (right): (0) No drift Motor Arm (left): (0) No drift - Motor Legs (both separate) Motor Leg (right): (0) No drift Motor Leg (left): (0) No drift - Limb Ataxia Limb Ataxia: (0) Absent - Sensory Sensory: (0) Normal - Best Language Best Language: (1) [id number] - Dysarthria Dysarthria: (0) Normal - Extinction and Inattention (formally neg Extinction and inattention: (0) No abnormality - Total Score/Results Total Score/Result: 2
[2021-04-27 20:02] LABS: BILIRUBIN,URINE NEGATIVE (NEGATIVE); GLUCOSE, URINE (UA) NEGATIVE (NEGATIVE); KETONES,URINE (UA) NEGATIVE (NEGATIVE); LEUKOCYTE ESTERASE, URINE NEGATIVE (NEGATIVE); NITRITE,URINE NEGATIVE (NEGATIVE); OCCULT BLOOD,URINE NEGATIVE (NEGATIVE); PH,URINE 6.5 PH (5.0-7.5); PROTEIN,URINE NEGATIVE (NEGATIVE); UROBILINOGEN,URINE 0.2 (NORMAL) E.U./dL (NORMAL)
[2021-04-27 20:03] LABS: CLARITY,URINE CLEAR (CLEAR)
[2021-04-27] MEDS ORDERED: IOVERSOL 320 100 ML VIAL IVP ONE ×2 (20:03→20:34)
--- NOTE | 2021-04-27 21:06 | CT Report ---
PROCEDURE: ANGIO HEAD W/WO INDICATIONS: headache, expressive aphasia CONTRAST: IV CONTRAST: Optiray 320 ml: 100 PO CONTRAST: *NO PO CONTRAST TECHNIQUE: Precontrast 4.5 mm thick angled axial sections acquired from the foramen magnum to the vertex. Afte r the administration of intravenous contrast, 1 mm thick sections acquired through the [place] of [place] is. Postcontrast 4.5 mm thick sections then re-acquired from the foramen magnum to the vertex. 3-di mensional hiosduk-wigbjgcbm-xirhocbnvp (MIP) and/or volume rendering reformats were acquired of the c entral intracranial vasculature. For radiation dose reduction, the following was used: automated ex posure control, adjustment of mA and/or kV according to patient size. COMPARISON: Head CT 07/03/2019. MR angiogram head and neck 10/26/2017. FINDINGS: Image quality: Excellent. Anterior circulation: Intracranial internal carotid arteries are normal in size and flow. The flow within the paired anterior cerebral arteries is unchanged. 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 The flow with in the middle cerebral arteries is normal and symmetric. The anterior communicating artery is seen. No aneurysms are seen. Posterior circulation: Visualized portions of the vertebral arteries demonstrate normal caliber. Lef t V4 vertebral artery terminates in PICA. Previously seen joining the right vertebral artery to form the basilar artery. Flow within the posterior cerebral arteries is symmetric. 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 No aneurysms are seen. CSF spaces: Ventricles ventricles are prominent size. Basal cisterns are patent. No extra-axial flu id collections. Brain: No midline shift. No intracranial bleeds or masses. No area of hypodensity in a large vascul ar distribution. No interval change is appreciated. There is periventricular hypodensity consistent w ith chronic microvascular ischemic disease. There is age-related parenchymal loss. Skull and face: Calvarium and facial bones appear intact, without suspicious lesions. Tiny subcutan eous nodule right paramedian parietal is unchanged since 2019. This could represent a sebaceous cyst. Scleral banding. Sinuses: Visualized sinuses and mastoids are clear. IMPRESSION: 1. No acute intracranial hemorrhage. 2. 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 3. 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 Overall, the basilar artery is patent. 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 Results were communicated to Dr. Murphy at 04/27/2021 9:02 PM PDT. Reviewed by: Kamron Rabago MD on 04/27/2021 9:05 PM PDT Approved by: Kamron Rabago MD on 04/27/2021 9:05 PM PDT Station ID: [id number]
--- NOTE | 2021-04-27 21:14 | CT Report ---
PROCEDURE: ANGIO NECK W INDICATIONS: headache, expressive aphasia CONTRAST: IV CONTRAST: Optiray 320 ml: 100 PO CONTRAST: *NO PO CONTRAST TECHNIQUE: After the administration of intravenous contrast, 1.5 mm axial sections acquired from the aortic arch to the [place] of [place]. Coronal 3-D maximum intensity projection (MIP) and/or volume rendering ref ormats were then performed. For radiation dose reduction, the following was used: automated exposur e control, adjustment of mA and/or kV according to patient size. COMPARISON: Same day CTA head. MARRERO head and neck 10/26/2017. FINDINGS: Image quality: Excellent. Carotid system: The great vessels demonstrate a conventional anatomy as they arise from the aortic a rch. The origins of the common carotid arteries appear patent. The common carotid arteries demonstr ate normal calibers and courses. Bilateral carotid bulb calcified plaque. 70% stenosis at the left I CA. Less than 50% stenosis in the right ICA. Posterior circulation: The origins of the vertebral arteries appear patent. The right vertebral art carin is dominant. They join to form a normal appearing basilar artery. Soft tissues: Visualized neck soft tissues demonstrate no suspicious abnormalities. The thyroid is normal in size and there are no incidental findings. Bones: No suspicious bony lesions. Visualized cervical spine appears normally aligned. IMPRESSION: 1. 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 Although, previously diminutive. 2. Greater than or equal to 70% stenosis in the left ICA at the carotid bulb, not significant change. 3. 50% or less stenosis in the right ICA, unchanged. The estimate of stenosis included in the report of the imaging study was calculated using the NASCET method Results were communicated to Dr. Murphy at 04/27/2021 9:05 PM PDT. Reviewed by: Kamron Rabago MD on 04/27/2021 9:13 PM PDT Approved by: Kamron Rabago MD on 04/27/2021 9:13 PM PDT Station ID: [id number]
[2021-04-27] MEDS ORDERED: ASPIRIN CHEW 81 MG TABLET PO STA (22:26)
[2021-04-27] MEDS ORDERED: CLOPIDOGREL 300 MG TABLET PO STA (22:26)
[2021-04-28 00:21] LABS: B. PARAPERTUSSIS- RESP PCR PAN NOT DETECTED; B. PERTUSSIS- RESP PCR PANEL NOT DETECTED; C. PNEUMONIAE- RESP PCR PANEL NOT DETECTED; CORONAVIRUS 229E-RESP PCR NOT DETECTED; CORONAVIRUS HKU1-RESP PCR NOT DETECTED; CORONAVIRUS NL63-RESP PCR NOT DETECTED; CORONAVIRUS OC43-RESP PCR NOT DETECTED; HUMAN METAPNEUMOVIRUS NOT DETECTED; INFLUENZA A- RESP PCR PANEL NOT DETECTED; INFLUENZA B - RESP PCR PANEL NOT DETECTED; M. PNEUMONIAE- RESP PCR PANEL NOT DETECTED; PARAINFLUENZA VIRUS 1 NOT DETECTED; PARAINFLUENZA VIRUS 2 NOT DETECTED; PARAINFLUENZA VIRUS 3 NOT DETECTED; PARAINFLUENZA VIRUS 4 NOT DETECTED; RHINOVIRUS/ENTEROVIRUS NOT DETECTED; RSV- RESP PCR PANEL NOT DETECTED; SARS-CoV-2 -RESP PCR PANEL NOT DETECTED
[2021-04-28 01:02] VITALS: BP 161/89
== END 2021-04-28 01:28 | disposition short-term general hospital (02) ==
LOC: ED 17:02
DX: R47.01 Aphasia (principal); R51.9 Headache, unspecified; R41.0 Disorientation, unspecified; I65.23 Occlusion and stenosis of bilateral carotid arteries; Z86.73 Personal history of transient ischemic attack (TIA), and cerebral infarction without residual deficits; Z20.822 Contact with and (suspected) exposure to COVID-19; Z79.82 Long term (current) use of aspirin
CPT/HCPCS: 36415; 70496; 70498; 80053; 81003; 83690; 85025; 87631; 99285; A9270; Q9967; 0202U; 81001; 87086

== ENCOUNTER 2021-04-28 01:20 | Outpatient (CLI) | payer MEDICARE, OTHER | END 2021-04-28 01:21 | disposition short-term general hospital (02) | LOC: EMS 01:20 | PROVIDERS: ATTEND Emergency Medicine | DX: R47.01 Aphasia (principal); R41.0 Disorientation, unspecified | CPT/HCPCS: A0425; A0428 ==

== ENCOUNTER 2021-05-10 12:43 | Outpatient (CLI) | payer MEDICARE, OTHER | END 2021-05-10 12:44 | disposition home or self-care (01) | LOC: COV 12:43 | PROVIDERS: ATTEND Family Medicine | DX: Z01.812 Encounter for preprocedural laboratory examination (principal); Z20.822 Contact with and (suspected) exposure to COVID-19 ==

== ENCOUNTER 2021-05-17 20:30 | Emergency (ER) | payer MEDICARE, OTHER ==
[2021-05-17 20:53] VITALS: BP 136/73
--- NOTE | 2021-05-17 21:35 | ED Physician Documentation ---
History of Present Illness - Stated complaint Stated Complaint: POST OP CONSTIPATION - Chief complaint Chief Complaint: Abd Pain - History obtained from History obtained from: Patient - Additonal information Additional information: 75-year-old man presents 3 days status post CEA with mild constipation. He states that he is having small bowel movements daily for the past 3 days and has been taking Metamucil but is concerned because he feels like he is incompletely emptying his bowels. Patient is not on MiraLAX or senna/docusate. Unsure if he is taking pain medication. Denies fever, pain at the wound site, abdominal pain, nausea. Passing normal flatus. Last BM yesterday was brown stool. Review of Systems Constitutional: denies: Fever, Chills GI: reports: Constipation. denies: Abdominal Pain : denies: Dysuria PD PAST MEDICAL HISTORY - Past Medical History Cardiovascular: High cholesterol Respiratory: Asthma Neuro: TIA, Migraines Endocrine/Autoimmune: None GI: GI bleed, Crohn's disease : None HEENT: None Psych: None Musculoskeletal: None Derm: Psoriasis - Past Surgical History Past Surgical History: Yes General: Appendectomy, Bowel surgery, Colonoscopy Ortho: Shoulder arthroplasty, Arthroscopic surgery - Present Medications Home Medications: Ambulatory Orders Medication Instructions Recorded Confirmed Multivitamin [Multi-Day Vitamins] 1 tab PO DAILY 11/26/12 04/27/21 Ascorbate Calcium/Bioflavonoid 1,000 mg PO TID 07/03/15 04/27/21 [Janet-C 1,000 mg Tablet] Folic Acid 800 mcg PO DAILY 07/03/15 04/27/21 Magnesium Oxide [Magnesium] 500 mg PO BID 07/03/15 04/27/21 [place]-3/Dha/Epa/Fish Oil [Fish Oil 1,400 mg PO DAILY 07/03/15 04/27/21 1,000 mg Softgel] Chlorpheniramine Maleate [Allergy 4 mg PO BID PRN 05/29/17 04/27/21 4-Hour] L. Acidophilus/Pectin, [place] 1 each PO BID 05/29/17 04/27/21 [Acidophilus Capsule] Phenylephrine HCl [Nasal 10 mg PO BID PRN 05/29/17 04/27/21 Decongestant PE] Calcium Carbonate [Tums (Calcium 1,000 - 2,000 mg PO DAILY PRN 06/02/17 04/27/21 Carbonate 500mg)] Potassium Gluconate 595 mg PO DAILY 06/02/17 04/27/21 Aspirin [Aspirin EC] 81 mg PO DAILY 10/01/17 04/27/21 azaTHIOprine [Imuran] 175 mg PO QID 10/15/17 04/27/21 Cholecalciferol (Vitamin D3) 1,000 unit PO DAILY 10/25/17 04/27/21 [Vitamin D3] Fexofenadine HCl 180 mg PO DAILY PM 10/28/20 04/27/21 Mesalamine [Asacol Hd] 1,200 mg PO BID 10/28/20 04/27/21 L. Acidophilus/L. Rhamnosus 1 tab PO DAILY 03/22/21 04/27/21 [Probiotic 15 Billion Cell Cap] Mecobalamin [B12 Active] 1 tab PO DAILY 03/22/21 04/27/21 Polyethylene Glycol 8000 454 gm MC DAILY 14 Days #1 bottle 05/17/21 [Polyethylene Glycol] Sennosides/Docusate Sodium 1 each PO QDAC PRN #14 tablet 05/17/21 [Senna-Docusate Sodium Tablet] - Allergies Allergies/Adverse Reactions: Allergies Allergy/AdvReac Type Severity Reaction Status Date / Time hydrocodone [Hydrocodone] Allergy Hives Verified 04/27/21 17:25 Sulfa (Sulfonamide Allergy Hives Verified 04/27/21 17:25 Antibiotics) hydromorphone HCl * AdvReac Respiratory Verified 04/27/21 17:25 [From Dilaudid] simvastatin AdvReac weakness, Verified 04/27/21 17:25 can't walk - Social History Does the pt smoke?: No Smoking Status: Never smoker Does the pt drink ETOH?: No Does the pt have substance abuse?: No - Immunizations Immunizations are current?: Yes - POLST Patient has POLST: No PD ED PE NORMAL - Vitals Vital signs reviewed: Yes - General General: Alert and oriented X 3, No acute distress, Well developed/nourished - HEENT HEENT: Atraumatic, PERRL, EOMI - Abdomen Abdomen: Non tender, Non distended - Male Male : Radio Reporter present (RN), Other (rectal exam with soft brown stool in rectal vault) Results - Vitals Vitals: Vital Signs - 24 hr 05/17/21 05/17/21 20:49 21:52 Temperature 36.5 C 36.5 C Heart Rate 94 94 Respiratory 16 16 Rate Blood Pressure 136/73 H 136/73 H O2 Saturation 94 94 Oxygen O2 Source Room air PD MEDICAL DECISION MAKING - ED course ED course: 75-year-old man presents with mild constipation. Prescribed senna/docusate and MiraLAX and advised him to drink lots of water with his Metamucil. Strict return precautions given. Patient will follow up for postoperative appointment. Departure - Departure Disposition: Home, Self Care Clinical Impression: Constipation Condition: Good Instructions: ED Constipation Prescriptions: Polyethylene Glycol 8000 [Polyethylene Glycol] 454 gm MC DAILY 14 Days #1 bottle Sennosides/Docusate Sodium [Senna-Docusate Sodium Tablet] 1 each PO QDAC PRN #14 tablet PRN Reason: Constipation Comments: You are seen in the emergency department for constipation. You can continue taking Metamucil but make sure that you drink 8 to 10 glasses of water daily to help it work. Start taking your new prescriptions and keep your follow up appointment with your surgeon. Return to the emergency department if you have any new or worsening symptoms or other concerns. Discharge Date/Time: 05/17/21 22:00
== END 2021-05-17 22:00 | disposition home or self-care (01) ==
LOC: ED 20:30
DX: K59.00 Constipation, unspecified (principal); Z98.890 Other specified postprocedural states; K50.90 Crohn's disease, unspecified, without complications; Z86.73 Personal history of transient ischemic attack (TIA), and cerebral infarction without residual deficits; Z79.899 Other long term (current) drug therapy; Z79.82 Long term (current) use of aspirin
CPT/HCPCS: 99282; 99283

== ENCOUNTER 2021-09-13 01:12 | Outpatient (CLI) | payer MEDICARE, OTHER | END 2021-09-13 01:13 | disposition critical access hospital (66) | LOC: EMS 01:12 | DX: R41.0 Disorientation, unspecified (principal); R73.09 Other abnormal glucose | CPT/HCPCS: A0425; A0429 ==

== ENCOUNTER 2021-09-13 01:23 | Emergency (ER) | payer MEDICARE, OTHER ==
--- NOTE | 2021-09-13 01:42 | ED Physician Documentation ---
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 She says he has had these episodes before and they have been attributed to TIA as well as complex migraines. She gave him a TL migraine medication (does not know which one) and he fell asleep. He subsequently woke up and she noted he was at baseline mentation, but when he woke up again shortly after midnight, he was more confused, again had difficulty with speech (making odd statements, also seemed to have difficulty getting words out), became agitated at times. EMS arrived and found FSBS of 12. He was given gatorade and oral glucose gel and subsequent FSBS was over 100. This correlated with return to baseline mentation. He has no h/o DM or hypoglycemia. There are no DM medications in the house. 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 He has no c/o on my H+P Review of Systems Constitutional: reports: Reviewed and negative Eyes: reports: Reviewed and negative Cardiac: reports: Reviewed and negative Respiratory: reports: Reviewed and negative GI: reports: Reviewed and negative : denies: Dysuria, Frequency Musculoskeletal: reports: Reviewed and negative Neurologic: reports: Difficulty speaking, Confused (resolved), Altered mental status (resolved). denies: Generalized weakness, Focal weakness, Numbness, Headache PD PAST MEDICAL HISTORY - Past Medical History Past Medical History: Yes Cardiovascular: High cholesterol Respiratory: Asthma Neuro: TIA, Migraines Endocrine/Autoimmune: None GI: GI bleed, Crohn's disease : None HEENT: None Psych: None Musculoskeletal: None Derm: Psoriasis - Past Surgical History Past Surgical History: Yes General: Appendectomy, Bowel surgery, Colonoscopy Ortho: Shoulder arthroplasty, Arthroscopic surgery - Present Medications Home Medications: Ambulatory Orders Medication Instructions Recorded Confirmed Multivitamin [Multi-Day Vitamins] 1 tab PO DAILY 11/26/12 09/13/21 Ascorbate Calcium/Bioflavonoid 1,000 mg PO TID 07/03/15 09/13/21 [Janet-C 1,000 mg Tablet] Folic Acid 800 mcg PO DAILY 07/03/15 09/13/21 Magnesium Oxide [Magnesium] 500 mg PO BID 07/03/15 09/13/21 [place]-3/Dha/Epa/Fish Oil [Fish Oil 1,400 mg PO DAILY 07/03/15 09/13/21 1,000 mg Softgel] Chlorpheniramine Maleate [Allergy 4 mg PO BID PRN 05/29/17 09/13/21 4-Hour] L. Acidophilus/Pectin, [place] 1 each PO BID 05/29/17 09/13/21 [Acidophilus Capsule] Phenylephrine HCl [Nasal 10 mg PO BID PRN 05/29/17 09/13/21 Decongestant PE] Calcium Carbonate [Tums (Calcium 1,000 - 2,000 mg PO DAILY PRN 06/02/17 09/13/21 Carbonate 500mg)] Potassium Gluconate 595 mg PO DAILY 06/02/17 09/13/21 Aspirin [Aspirin EC] 81 mg PO DAILY 10/01/17 09/13/21 Cholecalciferol (Vitamin D3) 1,000 unit PO DAILY 10/25/17 09/13/21 [Vitamin D3] Fexofenadine HCl 180 mg PO DAILY PM 10/28/20 09/13/21 Mesalamine [Asacol Hd] 1,200 mg PO BID 10/28/20 09/13/21 L. Acidophilus/L. Rhamnosus 1 tab PO DAILY 03/22/21 09/13/21 [Probiotic 15 Billion Cell Cap] Mecobalamin [B12 Active] 1 tab PO DAILY 03/22/21 09/13/21 Polyethylene Glycol 8000 454 gm MC DAILY 14 Days #1 bottle 05/17/21 09/13/21 [Polyethylene Glycol] Sennosides/Docusate Sodium 1 each PO QDAC PRN #14 tablet 05/17/21 09/13/21 [Senna-Docusate Sodium Tablet] Ezetimibe [Zetia] 10 mg PO QD 06/21/21 09/13/21 Ezetimibe [Zetia] 10 mg PO DAILY 09/13/21 09/13/21 - Allergies Allergies/Adverse Reactions: Allergies Allergy/AdvReac Type Severity Reaction Status Date / Time hydrocodone [Hydrocodone] Allergy Hives Verified 09/13/21 01:34 Sulfa (Sulfonamide Allergy Hives Verified 09/13/21 01:34 Antibiotics) hydromorphone HCl * AdvReac Respiratory Verified 09/13/21 01:34 [From Dilaudid] simvastatin AdvReac weakness, Verified 09/13/21 01:34 can't walk - Social History Does the pt smoke?: No Smoking Status: Never smoker Does the pt drink ETOH?: No Does the pt have substance abuse?: No - Immunizations Immunizations are current?: Yes - POLST Patient has POLST: No PD ED PE NORMAL - Vitals Vital signs reviewed: Yes - General General: Alert and oriented X 3, No acute distress, Well developed/nourished, Other (AAOx3 when asked orientation questions. 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, No motor deficit, No sensory deficit, Normal speech Eye Opening: Spontaneous Motor: Obeys Commands Verbal: Oriented (best answers comprise oriented answer, but he also makes odd statements at times) GCS Score: 15 PD ED PE EXPANDED - Cardiac Cardiac: Murmur Present (2/6 cardiac base) Results - Vitals Vitals: Oxygen O2 Source Room air - EKG (time done) No standard instances Rate: Rate (enter#) (85) Rhythm: NSR [place]: Normal Intervals: Normal AR QRS: Normal Ischemia: Normal ST segments - Labs Labs: Laboratory Tests 09/13/21 09/13/21 09/13/21 01:37 01:37 01:45 WBC 7.3 RBC 4.39 L Hgb 13.0 L Hct 40.1 L MCV 91.3 MCH 29.6 MCHC 32.4 RDW 14.4 Plt Count 249 MPV 10.4 Neut # (Auto) 4.2 Lymph # (Auto) 1.9 [place] # (Auto) 0.8 Eos # (Auto) 0.3 Baso # (Auto) 0.0 Absolute Nucleated RBC 0.00 Nucleated RBC % 0.0 Sodium 136 Potassium 3.3 L Chloride 100 L Carbon Dioxide 26 Anion Gap 10.0 BUN 25 H Creatinine 1.4 H Estimated GFR (MDRD) 49 L Glucose 186 H Calcium 9.4 Total Bilirubin 0.8 AST 23 ALT 24 Alkaline Phosphatase 42 Troponin I High Sens Total Protein 8.1 Albumin 3.4 Globulin 4.7 H Albumin/Globulin Ratio 0.7 L Lipase 31 Urine Color YELLOW Urine Clarity CLEAR Urine pH 7.0 Ur Specific [place] 1.015 Urine Protein NEGATIVE Urine Glucose (UA) NEGATIVE Urine Ketones NEGATIVE Urine Occult Blood NEGATIVE Urine Nitrite NEGATIVE Urine Bilirubin NEGATIVE Urine Urobilinogen 0.2 (NORMAL) Ur Leukocyte Esterase NEGATIVE Ur Microscopic Review NOT INDICATED Urine Culture Comments NOT INDICATED 09/13/21 02:14 WBC RBC Hgb Hct MCV MCH MCHC RDW Plt Count MPV Neut # (Auto) Lymph # (Auto) [place] # (Auto) Eos # (Auto) Baso # (Auto) Absolute Nucleated RBC Nucleated RBC % Sodium Potassium Chloride Carbon Dioxide Anion Gap BUN Creatinine Estimated GFR (MDRD) Glucose Calcium Total Bilirubin AST ALT Alkaline Phosphatase Troponin I High Sens 5.4 Total Protein Albumin Globulin Albumin/Globulin Ratio Lipase Urine Color Urine Clarity Urine pH Ur Specific [place] Urine Protein Urine Glucose (UA) Urine Ketones Urine Occult Blood Urine Nitrite Urine Bilirubin Urine Urobilinogen Ur Leukocyte Esterase Ur Microscopic Review Urine Culture Comments PD MEDICAL DECISION MAKING - ED course Complexity details: reviewed results, re-evaluated patient, considered differential, d/w patient, d/w family ED course: profound hypoglycemia 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 He makes some odd statements and seems to have difficulty with word reca ll, but this is early in his stay .His blood sugar remains over 100 during ED stay (on serum testing as well as FSBS), and on reevaluation after tests resulted, he is in NAD and AAOx3, no longer making odd statements and no longer exhibits difficulty with word finding. His urinalysis is negative and his CBC and ER abdominal panel have no concerning findings (a few non-contributory abnormalities are noted such as mildly elevated creatinine, mild hypokalemia (3.3)). Results d/w patient and spouse. He is instructed to follow up with PMD. Also noted are persistently high blood pressure readings in ED. He does not have dx of HTN. He is given amlodipine 5mg and discharged. He has a cuff at home and instructed to monitor his pressures; if they are consistently high, PMD might recommend antihypertensive rx. Departure - Departure Disposition: Home, Self Care Clinical Impression: Hypoglycemia High blood pressure Qualifiers: Hypertension type: unspecified Qualified Code(s): I10 - Essential (primary) hypertension Condition: Good Instructions: ED Hypertension Poss, ED Blood Sugar Low Non Diabetic Follow-Up: Vidal Varela MD [Primary Care Provider] - Comments: Based on your tests tonight, the cause of your low blood sugar is unclear at this time. You should follow up with your primary care provider for reevaluation of both the low blood sugar as well as the high blood pressure readings that were noted during your ER visit. Discharge Date/Time: 09/13/21 05:31
[2021-09-13 01:45] LABS: BASOPHILS % (AUTO) 0.5 %; EOSINOPHILS # (AUTO) 0.3 10^3/uL (0.0-0.7); EOSINOPHILS % (AUTO) 4.1 %; HCT - HEMATOCRIT 40.1 % (42.0-52.0); LYMPHOCYTES # (AUTO) 1.9 10^3/uL (1.5-3.5); LYMPHOCYTES % (AUTO) 26.1 %; MEAN CORPUSCULAR HEMOGLOBIN 29.6 pg (27.0-31.0); MEAN CORPUSCULAR HGB CONC 32.4 g/dL (32.0-36.0); MEAN CORPUSCULAR VOLUME 91.3 fL (80.0-94.0); MEAN PLATELET VOLUME 10.4 fL (7.4-11.4); MONOCYTES # (AUTO) 0.8 10^3/uL (0.0-1.0); MONOCYTES % (AUTO) 11.4 %; NEUTROPHILS # (AUTO) 4.2 10^3/uL (1.5-6.6); NEUTROPHILS % (AUTO) 57.6 %; PLT - PLATELET COUNT 249 10^3/uL (130-450); RED BLOOD COUNT 4.39 10^6/uL (4.70-6.10); RED CELL DISTRIBUTION WIDTH 14.4 % (12.0-15.0); WHITE BLOOD COUNT 7.3 x10^3/uL (4.8-10.8)
[2021-09-13 01:55] LABS: BILIRUBIN,URINE NEGATIVE (NEGATIVE); CLARITY,URINE CLEAR (CLEAR); GLUCOSE, URINE (UA) NEGATIVE (NEGATIVE); KETONES,URINE (UA) NEGATIVE (NEGATIVE); LEUKOCYTE ESTERASE, URINE NEGATIVE (NEGATIVE); NITRITE,URINE NEGATIVE (NEGATIVE); OCCULT BLOOD,URINE NEGATIVE (NEGATIVE); PROTEIN,URINE NEGATIVE (NEGATIVE); UROBILINOGEN,URINE 0.2 (NORMAL) E.U./dL (NORMAL)
[2021-09-13 01:56] LABS: ALBUMIN 3.4 g/dL (3.2-5.5); ALBUMIN/GLOBULIN RATIO 0.7 (1.0-2.2); BILIRUBIN,TOTAL 0.8 mg/dL (0.2-1.0); CALCIUM 9.4 mg/dL (8.5-10.3); CREATININE 1.4 mg/dL (0.6-1.2); POTASSIUM 3.3 mmol/L (3.5-5.0); TOTAL PROTEIN 8.1 g/dL (6.7-8.2)
[2021-09-13] MEDS ORDERED: amLODIPine 5 MG TABLET PO STA (04:53)
[2021-09-13 05:28] VITALS: BP 181/89
== END 2021-09-13 05:31 | disposition home or self-care (01) ==
LOC: EDUNIT# → ED 01:23 → SUPCPDRO 01:23 → ED 05:31
DX: E16.2 Hypoglycemia, unspecified (principal); I10 Essential (primary) hypertension
CPT/HCPCS: 36415; 80053; 81003; 83690; 84484; 85025; 93005; 99284; A9270; 81001; 87086

== ENCOUNTER 2021-10-30 10:41 | Outpatient (CLI) | payer MEDICARE, OTHER ==
[2021-10-30 11:00] LABS: BASOPHILS # (AUTO) 0.1 10^3/uL (0.0-0.1); BASOPHILS % (AUTO) 0.7 %; EOSINOPHILS # (AUTO) 0.3 10^3/uL (0.0-0.7); EOSINOPHILS % (AUTO) 4.1 %; HGB - HEMOGLOBIN 12.9 g/dL (14.0-18.0); LYMPHOCYTES # (AUTO) 1.6 10^3/uL (1.5-3.5); LYMPHOCYTES % (AUTO) 23.3 %; MEAN CORPUSCULAR HEMOGLOBIN 30.1 pg (27.0-31.0); MEAN CORPUSCULAR HGB CONC 33.1 g/dL (32.0-36.0); MEAN CORPUSCULAR VOLUME 90.9 fL (80.0-94.0); MEAN PLATELET VOLUME 10.3 fL (7.4-11.4); MONOCYTES # (AUTO) 0.9 10^3/uL (0.0-1.0); MONOCYTES % (AUTO) 12.6 %; NEUTROPHILS # (AUTO) 4.2 10^3/uL (1.5-6.6); NEUTROPHILS % (AUTO) 59.2 %; PLT - PLATELET COUNT 239 10^3/uL (130-450); RED BLOOD COUNT 4.29 10^6/uL (4.70-6.10); RED CELL DISTRIBUTION WIDTH 14.9 % (12.0-15.0)
[2021-10-30 11:16] LABS: ALBUMIN 3.5 g/dL (3.2-5.5); ALBUMIN/GLOBULIN RATIO 0.8 (1.0-2.2); BILIRUBIN,TOTAL 0.9 mg/dL (0.2-1.0); CALCIUM 9.4 mg/dL (8.5-10.3); CREATININE 1.3 mg/dL (0.6-1.2); CRP - C-REACTIVE PROTEIN 1.1 mg/dL (0-1.0); POTASSIUM 4.1 mmol/L (3.5-5.0); TOTAL PROTEIN 8.1 g/dL (6.7-8.2)
== END 2021-10-30 10:42 | disposition home or self-care (01) ==
LOC: LAB 10:41
PROVIDERS: ATTEND Internal Medicine
DX: K50.114 Crohn's disease of large intestine with abscess (principal)
CPT/HCPCS: 36415; 80053; 85025; 85651; 86140

== ENCOUNTER 2021-11-07 18:08 | Emergency (ER) | payer MEDICARE, OTHER ==
--- NOTE | 2021-11-07 18:41 | ED Physician Documentation ---
PD HPI ABD PAIN - Stated complaint Stated Complaint: CONSTIPATIONS - Chief complaint Chief Complaint: Abd Pain - History obtained from History obtained from: Patient - Additional information Additional information: 75-year-old gentleman with history of Crohn's on Remicade and a sick call has a history of recurrent small bowel obstructions. History of abdominal abscess and partial colectomy as well all remote. Stopped having bowel movements and gas yesterday with lower abdominal pain. No vomiting. He has tried an enema and several laxatives without relief. Review of Systems Ten Systems: 10 systems reviewed and negative Constitutional: denies: Fever, Chills Nose: reports: Rhinorrhea / runny nose (From allergies) GI: reports: Abdominal Pain, Constipation. denies: Nausea, Vomiting, Hematemesis, Bloody / black stool : denies: Dysuria, Frequency PD PAST MEDICAL HISTORY - Past Medical History Cardiovascular: High cholesterol Respiratory: Asthma Neuro: TIA, Migraines Endocrine/Autoimmune: None GI: GI bleed, Crohn's disease : None HEENT: None Psych: None Musculoskeletal: None Derm: Psoriasis - Past Surgical History Past Surgical History: Yes General: Appendectomy, Bowel surgery, Colonoscopy Ortho: Shoulder arthroplasty, Arthroscopic surgery - Present Medications Home Medications: Ambulatory Orders Medication Instructions Recorded Confirmed Multivitamin [Multi-Day Vitamins] 1 tab PO DAILY 11/26/12 09/13/21 Ascorbate Calcium/Bioflavonoid 1,000 mg PO TID 07/03/15 09/13/21 [Janet-C 1,000 mg Tablet] Folic Acid 800 mcg PO DAILY 07/03/15 09/13/21 Magnesium Oxide [Magnesium] 500 mg PO BID 07/03/15 09/13/21 [place]-3/Dha/Epa/Fish Oil [Fish Oil 1,400 mg PO DAILY 07/03/15 09/13/21 1,000 mg Softgel] Chlorpheniramine Maleate [Allergy 4 mg PO BID PRN 05/29/17 09/13/21 4-Hour] L. Acidophilus/Pectin, [place] 1 each PO BID 05/29/17 09/13/21 [Acidophilus Capsule] Phenylephrine HCl [Nasal 10 mg PO BID PRN 05/29/17 09/13/21 Decongestant PE] Calcium Carbonate [Tums (Calcium 1,000 - 2,000 mg PO DAILY PRN 06/02/17 09/13/21 Carbonate 500mg)] Potassium Gluconate 595 mg PO DAILY 06/02/17 09/13/21 Aspirin [Aspirin EC] 81 mg PO DAILY 10/01/17 09/13/21 Cholecalciferol (Vitamin D3) 1,000 unit PO DAILY 10/25/17 09/13/21 [Vitamin D3] Fexofenadine HCl 180 mg PO DAILY PM 10/28/20 09/13/21 Mesalamine [Asacol Hd] 1,200 mg PO BID 10/28/20 09/13/21 L. Acidophilus/L. Rhamnosus 1 tab PO DAILY 03/22/21 09/13/21 [Probiotic 15 Billion Cell Cap] Mecobalamin [B12 Active] 1 tab PO DAILY 03/22/21 09/13/21 Polyethylene Glycol 8000 454 gm MC DAILY 14 Days #1 bottle 05/17/21 09/13/21 [Polyethylene Glycol] Sennosides/Docusate Sodium 1 each PO QDAC PRN #14 tablet 05/17/21 09/13/21 [Senna-Docusate Sodium Tablet] Ezetimibe [Zetia] 10 mg PO QD 06/21/21 09/13/21 Ezetimibe [Zetia] 10 mg PO DAILY 09/13/21 09/13/21 - Allergies Allergies/Adverse Reactions: Allergies Allergy/AdvReac Type Severity Reaction Status Date / Time hydrocodone [Hydrocodone] Allergy Hives Verified 11/07/21 18:23 Sulfa (Sulfonamide Allergy Hives Verified 11/07/21 18:23 Antibiotics) hydromorphone HCl * AdvReac Respiratory Verified 11/07/21 18:23 [From Dilaudid] simvastatin AdvReac weakness, Verified 11/07/21 18:23 can't walk - Social History Does the pt smoke?: No Smoking Status: Never smoker Does the pt drink ETOH?: No Does the pt have substance abuse?: No - Immunizations Immunizations are current?: Yes - POLST Patient has POLST: No PD ED PE NORMAL - Vitals Vital signs reviewed: Yes - General General: Alert and oriented X 3, No acute distress - Abdomen Abdomen: Normal bowel sounds, Soft, Other (Well-healed surgical scars, soft and nontender, slightly diminished but certainly not absent bowel sounds.) - Rectal Rectal: Other (He does have a firm fecal impaction) - Neuro Neuro: Alert and oriented X 3, Normal speech - Psych Psych: Normal mood, Normal affect Results - Vitals Vitals: Vital Signs - 24 hr 11/07/21 11/07/21 18:20 18:22 Temperature 36.8 C 36.8 C Heart Rate 95 95 Respiratory 16 16 Rate Blood Pressure 183/103 H 180/100 H O2 Saturation 95 95 Oxygen O2 Source Room air PD MEDICAL DECISION MAKING - ED course ED course: 75-year-old gentleman with Crohn's presents with a fecal impaction. This was disimpaction with a combination of manual disimpaction, 2 fleets enema and 1 soapsuds enema by myself with resolution and relief of his pain. Departure - Departure Disposition: 01 Home, Self Care Clinical Impression: Fecal impaction Condition: Good Record reviewed to determine appropriate education?: Yes Instructions: ED Impaction Fecal Treated Comments: As discussed, if you are going to take a fiber supplements, use Citrucel not Metamucil. Drink plenty of water. Return for new or worsening symptoms.
[2021-11-07 19:49] VITALS: BP 150/90
== END 2021-11-07 19:47 | disposition home or self-care (01) ==
LOC: ED 18:08
DX: K56.41 Fecal impaction (principal); K50.90 Crohn's disease, unspecified, without complications
CPT/HCPCS: 99281; 99282

== ENCOUNTER 2021-11-12 14:24 | Emergency (ER) | payer MEDICARE, OTHER ==
[2021-11-12 14:35] VITALS: BP 155/79
[2021-11-12] MEDS ORDERED: MINERAL OIL ENEMA 133 ML BOTTLE RC STA (16:21)
--- NOTE | 2021-11-12 16:24 | ED Physician Documentation ---
History of Present Illness - Stated complaint Stated Complaint: MALE GI - Chief complaint Chief Complaint: General - Additonal information Additional information: 75-year-old male returns to the emergency department for evaluation of constipa tion. He was seen at this emergency department for similar on the . At that time he did receive multiple enemas as well as a soapsuds enema and manual rectal disimpaction. Patient reports his last bowel movement was 2 days ago and was small. He continues to feel constipated. No fevers nausea or vomiting. He does have a history that includes Crohn's disorder for which he takes Remicade. He also has a history of recurrent small bowel obstructions as well as abdominal abscesses and partial colectomy's in the remote past. He denies abdominal pain, fevers vomiting. Last bowel movement was brown, soft and nonbloody Review of Systems Constitutional: reports: Reviewed and negative Nose: reports: Reviewed and negative Throat: reports: Reviewed and negative Cardiac: reports: Reviewed and negative Respiratory: reports: Reviewed and negative GI: reports: Constipation : reports: Reviewed and negative Skin: reports: Reviewed and negative Musculoskeletal: reports: Reviewed and negative PD PAST MEDICAL HISTORY - Past Medical History Cardiovascular: High cholesterol Respiratory: Asthma Neuro: TIA, Migraines Endocrine/Autoimmune: None GI: GI bleed, Crohn's disease : None HEENT: None Psych: None Musculoskeletal: None Derm: Psoriasis - Past Surgical History Past Surgical History: Yes General: Appendectomy, Bowel surgery, Colonoscopy Ortho: Shoulder arthroplasty, Arthroscopic surgery - Present Medications Home Medications: Ambulatory Orders Medication Instructions Recorded Confirmed Multivitamin [Multi-Day Vitamins] 1 tab PO DAILY 11/26/12 09/13/21 Ascorbate Calcium/Bioflavonoid 1,000 mg PO TID 07/03/15 09/13/21 [Janet-C 1,000 mg Tablet] Folic Acid 800 mcg PO DAILY 07/03/15 09/13/21 Magnesium Oxide [Magnesium] 500 mg PO BID 07/03/15 09/13/21 [place]-3/Dha/Epa/Fish Oil [Fish Oil 1,400 mg PO DAILY 07/03/15 09/13/21 1,000 mg Softgel] Chlorpheniramine Maleate [Allergy 4 mg PO BID PRN 05/29/17 09/13/21 4-Hour] L. Acidophilus/Pectin, [place] 1 each PO BID 05/29/17 09/13/21 [Acidophilus Capsule] Phenylephrine HCl [Nasal 10 mg PO BID PRN 05/29/17 09/13/21 Decongestant PE] Calcium Carbonate [Tums (Calcium 1,000 - 2,000 mg PO DAILY PRN 06/02/17 09/13/21 Carbonate 500mg)] Potassium Gluconate 595 mg PO DAILY 06/02/17 09/13/21 Aspirin [Aspirin EC] 81 mg PO DAILY 10/01/17 09/13/21 Cholecalciferol (Vitamin D3) 1,000 unit PO DAILY 10/25/17 09/13/21 [Vitamin D3] Fexofenadine HCl 180 mg PO DAILY PM 10/28/20 09/13/21 Mesalamine [Asacol Hd] 1,200 mg PO BID 10/28/20 09/13/21 L. Acidophilus/L. Rhamnosus 1 tab PO DAILY 03/22/21 09/13/21 [Probiotic 15 Billion Cell Cap] Mecobalamin [B12 Active] 1 tab PO DAILY 03/22/21 09/13/21 Polyethylene Glycol 8000 454 gm MC DAILY 14 Days #1 bottle 05/17/21 09/13/21 [Polyethylene Glycol] Sennosides/Docusate Sodium 1 each PO QDAC PRN #14 tablet 05/17/21 09/13/21 [Senna-Docusate Sodium Tablet] Ezetimibe [Zetia] 10 mg PO QD 06/21/21 09/13/21 Ezetimibe [Zetia] 10 mg PO DAILY 09/13/21 09/13/21 polyethylene glycoL 3350 [Miralax] 17 gm PO DAILY PRN #1 bottle 11/12/21 - Allergies Allergies/Adverse Reactions: Allergies Allergy/AdvReac Type Severity Reaction Status Date / Time hydrocodone [Hydrocodone] Allergy Hives Verified 11/12/21 14:30 Sulfa (Sulfonamide Allergy Hives Verified 11/12/21 14:30 Antibiotics) hydromorphone HCl * AdvReac Respiratory Verified 11/12/21 14:30 [From Dilaudid] simvastatin AdvReac weakness, Verified 11/12/21 14:30 can't walk - Social History Does the pt smoke?: No Smoking Status: Never smoker Does the pt drink ETOH?: No Does the pt have substance abuse?: No - Immunizations Immunizations are current?: Yes - POLST Patient has POLST: No PD ED PE EXPANDED - General General: Alert, No acute distress, Well developed/nourished - Cardiac Cardiac: Regular Rate, Radial strong equal, Cap refill < 2 sec, Prolonged cap refill - Respiratory Respiratory: Clear to ausultation maciej. No: Distress, Labored - Abdomen Abdomen: Normal Bowel sounds. No: Tender to palpation - Rectal Rectal: Other (Large amount of soft stool in the vault. 3 golf ball sizes of stool manually removed.) Results - Vitals Vitals: Vital Signs - 24 hr 11/12/21 14:30 Temperature 36.2 C L Heart Rate 89 Respiratory 16 Rate Blood Pressure 155/79 H O2 Saturation 97 Oxygen O2 Source Room air PD MEDICAL DECISION MAKING - ED course Complexity details: considered differential, d/w patient, d/w family ED course: Well-appearing 75-year-old male presents with constipation. Seen 5 days ago for similar and was rectally disimpacted. On exam today he did have a small to moderate amount of stool in his vault which I did remove. He was also given an enema. He reports that he did not have a bowel movement after the enema however despite this is feeling better. He does have a remote history of bowel obstruction as well as abdominal abscess. He however has no fevers and a benign abdominal exam. He declined labs and CT imaging today. I will recommend once daily enemas at home as well as MiraLAX to help with constipation. If not markedly improved in 48 hours he should return to the ER. At that point we would consider labs and CT imaging again. Clinically however he does not present with a peritoneal exam, fever or with a suggestion of bowel obstruction Departure - Departure Disposition: Home, Self Care Clinical Impression: Constipation Qualifiers: Constipation type: unspecified constipation type Qualified Code(s): K59.00 - Constipation, unspecified Condition: Stable Record reviewed to determine appropriate education?: Yes Instructions: ED Constipation Prescriptions: polyethylene glycoL 3350 [Miralax] 17 gm PO DAILY PRN #1 bottle PRN Reason: Constipation Comments: Bernabe toure are seen today in the emergency department for constipation. You were seen by my colleague 5 days ago and disimpacted. You do have a small amount of stool in your rectum but not enough to disimpact you. I would like you to do the fleets enema once or twice daily. In order to help increase your bowel movement I would like you to take MiraLAX once or twice a day as well. If you find that despite doing once daily enemas and once or twice daily MiraLAX you are not having any bowel movements or you develop severe belly pain, have fevers uncontrolled vomiting then you should return immediately to the ER for a second evaluation.
== END 2021-11-12 18:15 | disposition home or self-care (01) ==
LOC: ED 14:24
DX: K59.00 Constipation, unspecified (principal)
CPT/HCPCS: 99282; 99283; A9270

== ENCOUNTER 2022-01-23 10:33 | Outpatient (CLI) | payer MEDICARE, OTHER ==
[2022-01-23 11:02] LABS: BASOPHILS % (AUTO) 0.4 %; EOSINOPHILS # (AUTO) 0.3 10^3/uL (0.0-0.7); EOSINOPHILS % (AUTO) 2.5 %; HCT - HEMATOCRIT 41.5 % (42.0-52.0); HGB - HEMOGLOBIN 13.6 g/dL (14.0-18.0); LYMPHOCYTES # (AUTO) 2.2 10^3/uL (1.5-3.5); LYMPHOCYTES % (AUTO) 21.1 %; MEAN CORPUSCULAR HEMOGLOBIN 29.7 pg (27.0-31.0); MEAN CORPUSCULAR HGB CONC 32.8 g/dL (32.0-36.0); MEAN CORPUSCULAR VOLUME 90.6 fL (80.0-94.0); MEAN PLATELET VOLUME 10.1 fL (7.4-11.4); MONOCYTES % (AUTO) 10.1 %; NEUTROPHILS # (AUTO) 6.7 10^3/uL (1.5-6.6); NEUTROPHILS % (AUTO) 65.4 %; PLT - PLATELET COUNT 198 10^3/uL (130-450); RED BLOOD COUNT 4.58 10^6/uL (4.70-6.10); RED CELL DISTRIBUTION WIDTH 15.2 % (12.0-15.0); WHITE BLOOD COUNT 10.3 x10^3/uL (4.8-10.8)
[2022-01-23 11:10] LABS: ALBUMIN 3.2 g/dL (3.2-5.5); ALBUMIN/GLOBULIN RATIO 0.8 (1.0-2.2); ALKALINE PHOSPHATASE 36 IU/L (42-121); ALT ALANINE AMINOTRANSFERASE 35 IU/L (10-60); AST ASPARTATE AMINOTRANSFERASE 23 IU/L (10-42); BILIRUBIN,TOTAL 0.5 mg/dL (0.2-1.0); BUN - BLOOD UREA NITROGEN 29 mg/dL (6-20); CALCIUM 9.2 mg/dL (8.5-10.3); CARBON DIOXIDE - CO2 32 mmol/L (21-32); CHLORIDE 99 mmol/L (101-111); CREATININE 1.3 mg/dL (0.6-1.2); GFR - MDRD 53 (>89); GLUCOSE 101 mg/dL (70-100); POTASSIUM 3.8 mmol/L (3.5-5.0); SODIUM 142 mmol/L (135-145); TOTAL PROTEIN 7.1 g/dL (6.7-8.2)
[2022-01-23 11:23] LABS: CRP - C-REACTIVE PROTEIN < 1.0 mg/dL (0-1.0)
== END 2022-01-23 10:34 | disposition home or self-care (01) ==
LOC: LAB 10:33
DX: K50.114 Crohn's disease of large intestine with abscess (principal); L30.9 Dermatitis, unspecified
CPT/HCPCS: 36415; 80053; 81599; 85025; 85651; 86140

== ENCOUNTER 2022-02-14 15:11 | Emergency (ER) | payer MEDICARE, OTHER ==
[2022-02-14 15:55] LABS: BASOPHILS % (AUTO) 0.5 %; EOSINOPHILS # (AUTO) 0.3 10^3/uL (0.0-0.7); EOSINOPHILS % (AUTO) 3.5 %; HCT - HEMATOCRIT 39.1 % (42.0-52.0); HGB - HEMOGLOBIN 12.8 g/dL (14.0-18.0); LYMPHOCYTES # (AUTO) 1.7 10^3/uL (1.5-3.5); LYMPHOCYTES % (AUTO) 20.8 %; MEAN CORPUSCULAR HEMOGLOBIN 30.1 pg (27.0-31.0); MEAN CORPUSCULAR HGB CONC 32.7 g/dL (32.0-36.0); MEAN PLATELET VOLUME 10.2 fL (7.4-11.4); MONOCYTES # (AUTO) 1.2 10^3/uL (0.0-1.0); MONOCYTES % (AUTO) 15.2 %; NEUTROPHILS # (AUTO) 4.7 10^3/uL (1.5-6.6); NEUTROPHILS % (AUTO) 59.5 %; PLT - PLATELET COUNT 215 10^3/uL (130-450); RED BLOOD COUNT 4.25 10^6/uL (4.70-6.10); RED CELL DISTRIBUTION WIDTH 15.9 % (12.0-15.0)
[2022-02-14 16:04] LABS: ALBUMIN 3.3 g/dL (3.2-5.5); ALBUMIN/GLOBULIN RATIO 0.9 (1.0-2.2); BILIRUBIN,TOTAL 0.7 mg/dL (0.2-1.0); CALCIUM 9.2 mg/dL (8.5-10.3); CREATININE 1.4 mg/dL (0.6-1.2); POTASSIUM 3.7 mmol/L (3.5-5.0); TOTAL PROTEIN 6.9 g/dL (6.7-8.2)
--- NOTE | 2022-02-14 16:46 | ED Physician Documentation ---
History of Present Illness - Stated complaint Stated Complaint: MALE - Chief complaint Chief Complaint: General - History obtained from History obtained from: Patient, Family - Additonal information Additional information: 76-year-old gentleman presents with his for a couple of complaints. 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 Now over the last couple of days has developed painful burning rash on the face. Secondly over the last few days has developed incontinence, dysuria and painful hematuria. They state it is getting better. No fevers or chills. Review of Systems Constitutional: denies: Fever, Chills Nose: denies: Rhinorrhea / runny nose, Congestion Cardiac: denies: Chest pain / pressure, Palpitations Respiratory: denies: Dyspnea, Cough PD PAST MEDICAL HISTORY - Past Medical History Cardiovascular: High cholesterol Respiratory: Asthma Neuro: TIA, Migraines Endocrine/Autoimmune: None GI: GI bleed, Crohn's disease : None HEENT: None Psych: None Musculoskeletal: None Derm: Psoriasis - Past Surgical History Past Surgical History: Yes General: Appendectomy, Bowel surgery, Colonoscopy Ortho: Shoulder arthroplasty, Arthroscopic surgery - Present Medications Home Medications: Ambulatory Orders Medication Instructions Recorded Confirmed Multivitamin [Multi-Day Vitamins] 1 tab PO DAILY 11/26/12 12/11/21 Ascorbate Calcium/Bioflavonoid 1,000 mg PO TID 07/03/15 12/11/21 [Janet-C 1,000 mg Tablet] Folic Acid 800 mcg PO DAILY 07/03/15 12/11/21 Magnesium Oxide [Magnesium] 500 mg PO BID 07/03/15 12/11/21 [place]-3/Dha/Epa/Fish Oil [Fish Oil 1,400 mg PO DAILY 07/03/15 12/11/21 1,000 mg Softgel] Chlorpheniramine Maleate [Allergy 4 mg PO BID PRN 05/29/17 12/11/21 4-Hour] Calcium Carbonate [Tums (Calcium 1,000 - 2,000 mg PO DAILY PRN 06/02/17 12/11/21 Carbonate 500mg)] Potassium Gluconate 99 mg PO DAILY 06/02/17 12/11/21 Aspirin [Aspirin EC] 81 mg PO DAILY 10/01/17 12/11/21 Cholecalciferol (Vitamin D3) 1,000 unit PO DAILY 10/25/17 12/11/21 [Vitamin D3] Mesalamine [Asacol Hd] 1,200 mg PO BID 10/28/20 12/11/21 L. Acidophilus/L. Rhamnosus 1 tab PO DAILY 03/22/21 12/11/21 [Probiotic 15 Billion Cell Cap] Polyethylene Glycol 8000 454 gm MC DAILY 14 Days #1 bottle 05/17/21 12/11/21 [Polyethylene Glycol] Sennosides/Docusate Sodium 1 each PO QDAC PRN #14 tablet 05/17/21 12/11/21 [Senna-Docusate Sodium Tablet] Ezetimibe [Zetia] 10 mg PO QD 06/21/21 12/11/21 polyethylene glycoL 3350 [Miralax] 17 gm PO DAILY PRN #1 bottle 11/12/21 12/11/21 Valacyclovir HCl [Valtrex] 1,000 mg PO TID #30 tablet 02/14/22 predniSONE [Deltasone] 20 mg PO [id number] #21 tab 02/14/22 - Allergies Allergies/Adverse Reactions: Allergies Allergy/AdvReac Type Severity Reaction Status Date / Time hydrocodone [Hydrocodone] Allergy Hives Verified 02/14/22 15:33 Sulfa (Sulfonamide Allergy Hives Verified 02/14/22 15:33 Antibiotics) hydromorphone HCl * AdvReac Respiratory Verified 02/14/22 15:33 [From Dilaudid] simvastatin AdvReac weakness, Verified 02/14/22 15:33 can't walk - Social History Does the pt smoke?: No Smoking Status: Never smoker Does the pt drink ETOH?: No Does the pt have substance abuse?: No - Immunizations Immunizations are current?: Yes - POLST Patient has POLST: No PD ED PE NORMAL - Vitals Vital signs reviewed: Yes - General General: Alert and oriented X 3, No acute distress - HEENT HEENT: PERRL, EOMI, Other (Vesicular rash mostly on the left cheek most consistent with shingles) - Neck Neck: Supple, no meningeal sign, No bony TTP - Abdomen Abdomen: Normal bowel sounds, Soft, Non tender - Neuro Neuro: Alert and oriented X 3, Normal speech Results - Vitals Vitals: Vital Signs - 24 hr 02/14/22 02/14/22 02/14/22 15:28 15:33 18:44 Temperature 36.9 C 36.3 C L Heart Rate 98 90 88 Respiratory 20 12 18 Rate Blood Pressure 134/95 H 194/95 H 182/84 H O2 Saturation 95 96 95 Oxygen O2 Source Room air - Labs Labs: Laboratory Tests 02/14/22 02/14/22 02/14/22 15:46 15:46 17:41 WBC 8.0 RBC 4.25 L Hgb 12.8 L Hct 39.1 L MCV 92.0 MCH 30.1 MCHC 32.7 RDW 15.9 H Plt Count 215 MPV 10.2 Neut # (Auto) 4.7 Lymph # (Auto) 1.7 [place] # (Auto) 1.2 H Eos # (Auto) 0.3 Baso # (Auto) 0.0 Absolute Nucleated RBC 0.00 Nucleated RBC % 0.0 Sodium 136 Potassium 3.7 Chloride 99 L Carbon Dioxide 28 Anion Gap 9.0 BUN 28 H Creatinine 1.4 H Estimated GFR (MDRD) 49 L Glucose 118 H Calcium 9.2 Total Bilirubin 0.7 AST 21 ALT 30 Alkaline Phosphatase 36 L Total Protein 6.9 Albumin 3.3 Globulin 3.6 Albumin/Globulin Ratio 0.9 L Urine Color YELLOW Urine Clarity CLEAR Urine pH 7.5 Ur Specific [place] 1.010 Urine Protein NEGATIVE Urine Glucose (UA) NEGATIVE Urine Ketones NEGATIVE Urine Occult Blood LARGE H Urine Nitrite NEGATIVE Urine Bilirubin NEGATIVE Urine Urobilinogen 0.2 (NORMAL) Ur Leukocyte Esterase NEGATIVE Urine RBC 6-10 H Urine WBC 4-5 Ur Squamous Epith Cells RARE Squamous Urine Bacteria Rare Ur Microscopic Review INDICATED Urine Culture Comments NOT INDICATED PD MEDICAL DECISION MAKING - ED course ED course: 68-year-old gentleman presents with multiple complaints, the biggest 1 is a burning rash to the face that looks most consistent with shingles he is treated with prednisone and Valtrex for that. He also has hematuria but only a small amount of blood on urinalysis today. Follow-up with a urologist was advised for consideration for cystoscopy. 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 There is a small amount of blood in your urine but no signs of infection. Talk with your primary care physician about that. Return for new or worsening symptoms. Discharge Date/Time: 02/14/22 18:45
[2022-02-14 17:51] LABS: BILIRUBIN,URINE NEGATIVE (NEGATIVE); GLUCOSE, URINE (UA) NEGATIVE (NEGATIVE); KETONES,URINE (UA) NEGATIVE (NEGATIVE); LEUKOCYTE ESTERASE, URINE NEGATIVE (NEGATIVE); NITRITE,URINE NEGATIVE (NEGATIVE); OCCULT BLOOD,URINE LARGE (NEGATIVE); PH,URINE 7.5 PH (5.0-7.5); PROTEIN,URINE NEGATIVE (NEGATIVE); UROBILINOGEN,URINE 0.2 (NORMAL) E.U./dL (NORMAL)
[2022-02-14 18:09] LABS: CLARITY,URINE CLEAR (CLEAR)
[2022-02-14 18:11] LABS: BACTERIA,URINE Rare /HPF (None Seen); SQUAMOUS EPITHELIAL CELL,UR RARE Squamous (<= Few)
[2022-02-14 18:45] VITALS: BP 182/84
== END 2022-02-14 18:45 | disposition home or self-care (01) ==
LOC: ED 15:11
DX: B02.9 Zoster without complications (principal); R31.0 Gross hematuria
CPT/HCPCS: 36415; 80053; 81001; 81003; 85025; 87086; 99283; 99284

== ENCOUNTER 2022-03-29 02:06 | Emergency (ER) | payer MEDICARE, OTHER ==
[2022-03-29 02:47] LABS: BILIRUBIN,URINE NEGATIVE (NEGATIVE); GLUCOSE, URINE (UA) NEGATIVE (NEGATIVE); KETONES,URINE (UA) NEGATIVE (NEGATIVE); LEUKOCYTE ESTERASE, URINE NEGATIVE (NEGATIVE); NITRITE,URINE NEGATIVE (NEGATIVE); OCCULT BLOOD,URINE NEGATIVE (NEGATIVE); PH,URINE 7.5 PH (5.0-7.5); PROTEIN,URINE NEGATIVE (NEGATIVE); UROBILINOGEN,URINE 0.2 (NORMAL) E.U./dL (NORMAL)
[2022-03-29 02:47] LABS: BASOPHILS % (AUTO) 0.4 %; EOSINOPHILS # (AUTO) 0.2 10^3/uL (0.0-0.7); EOSINOPHILS % (AUTO) 1.5 %; HGB - HEMOGLOBIN 14.6 g/dL (14.0-18.0); LYMPHOCYTES # (AUTO) 2.2 10^3/uL (1.5-3.5); MEAN CORPUSCULAR HEMOGLOBIN 30.5 pg (27.0-31.0); MEAN CORPUSCULAR HGB CONC 32.4 g/dL (32.0-36.0); MEAN CORPUSCULAR VOLUME 94.1 fL (80.0-94.0); MEAN PLATELET VOLUME 10.2 fL (7.4-11.4); MONOCYTES % (AUTO) 9.5 %; NEUTROPHILS # (AUTO) 7.4 10^3/uL (1.5-6.6); NEUTROPHILS % (AUTO) 68.2 %; PLT - PLATELET COUNT 258 10^3/uL (130-450); RED BLOOD COUNT 4.78 10^6/uL (4.70-6.10); RED CELL DISTRIBUTION WIDTH 15.3 % (12.0-15.0); WHITE BLOOD COUNT 10.8 x10^3/uL (4.8-10.8)
[2022-03-29 02:49] LABS: CLARITY,URINE HAZY (CLEAR)
[2022-03-29 02:52] LABS: RBC,URINE 0-5 /HPF (0-5); WBC,URINE 0-3 /HPF (0-3)
[2022-03-29 02:53] LABS: AMORPHOUS SEDIMENT,UR Few /LPF; BACTERIA,URINE Rare /HPF (None Seen); SQUAMOUS EPITHELIAL CELL,UR FEW Squamous (<= Few)
[2022-03-29 03:05] LABS: BILIRUBIN,TOTAL 0.9 mg/dL (0.2-1.0); CREATININE 1.6 mg/dL (0.6-1.2); POTASSIUM 3.7 mmol/L (3.5-5.0); TOTAL PROTEIN 7.9 g/dL (6.7-8.2)
--- NOTE | 2022-03-29 03:20 | ED Physician Documentation ---
History of Present Illness - Stated complaint Stated Complaint: HIGH BLOOD PRESSURE - Chief complaint Chief Complaint: Abd Pain - History obtained from History obtained from: Patient, Family - History of Present Illness Timing: Today (mid-afternoon) Pain level now: 4 Improved by: no ameliorating factors Worsened by: no exacerbating factors - Additonal information Additional information: since mid-afternoon, c/o midline chest pain, heaviness with radiation to mid/lower back. High blood pressures at home as high as 210/120. During HPI/ROS, he increasingly indicates his pain is upper abdomen, pointing to different areas across upper abdomen to indicate where his pain is. Review of Systems Constitutional: reports: Reviewed and negative Cardiac: reports: Chest pain / pressure. denies: Palpitations, Pedal edema, [place] f pain Respiratory: reports: Reviewed and negative GI: reports: Abdominal Pain. denies: Abdominal Swelling, Nausea, Vomiting, Constipation, Diarrhea Musculoskeletal: denies: Extremity swelling PD PAST MEDICAL HISTORY - Past Medical History Past Medical History: Yes Cardiovascular: High cholesterol Respiratory: Asthma Neuro: TIA, Migraines Endocrine/Autoimmune: None GI: GI bleed, Crohn's disease : None HEENT: None Psych: None Musculoskeletal: None Derm: Psoriasis - Past Surgical History Past Surgical History: Yes General: Appendectomy, Bowel surgery, Colonoscopy Ortho: Shoulder arthroplasty, Arthroscopic surgery - Present Medications Home Medications: Ambulatory Orders Medication Instructions Recorded Confirmed Multivitamin [Multi-Day Vitamins] 1 tab PO DAILY 11/26/12 12/11/21 Ascorbate Calcium/Bioflavonoid 1,000 mg PO TID 07/03/15 12/11/21 [Janet-C 1,000 mg Tablet] Folic Acid 800 mcg PO DAILY 07/03/15 12/11/21 Magnesium Oxide [Magnesium] 500 mg PO BID 07/03/15 12/11/21 [place]-3/Dha/Epa/Fish Oil [Fish Oil 1,400 mg PO DAILY 07/03/15 12/11/21 1,000 mg Softgel] Chlorpheniramine Maleate [Allergy 4 mg PO BID PRN 05/29/17 12/11/21 4-Hour] Calcium Carbonate [Tums (Calcium 1,000 - 2,000 mg PO DAILY PRN 06/02/17 12/11/21 Carbonate 500mg)] Potassium Gluconate 99 mg PO DAILY 06/02/17 12/11/21 Aspirin [Aspirin EC] 81 mg PO DAILY 10/01/17 12/11/21 Cholecalciferol (Vitamin D3) 1,000 unit PO DAILY 10/25/17 12/11/21 [Vitamin D3] Mesalamine [Asacol Hd] 1,200 mg PO BID 10/28/20 12/11/21 L. Acidophilus/L. Rhamnosus 1 tab PO DAILY 03/22/21 12/11/21 [Probiotic 15 Billion Cell Cap] Polyethylene Glycol 8000 454 gm MC DAILY 14 Days #1 bottle 05/17/21 12/11/21 [Polyethylene Glycol] Sennosides/Docusate Sodium 1 each PO QDAC PRN #14 tablet 05/17/21 12/11/21 [Senna-Docusate Sodium Tablet] Ezetimibe [Zetia] 10 mg PO QD 06/21/21 12/11/21 polyethylene glycoL 3350 [Miralax] 17 gm PO DAILY PRN #1 bottle 11/12/21 12/11/21 Valacyclovir HCl [Valtrex] 1,000 mg PO TID #30 tablet 02/14/22 predniSONE [Deltasone] 20 mg PO [id number] #21 tab 02/14/22 cloNIDine [Catapres] 0.2 mg PO BID #10 tablet 03/29/22 - Allergies Allergies/Adverse Reactions: Allergies Allergy/AdvReac Type Severity Reaction Status Date / Time hydrocodone [Hydrocodone] Allergy Hives Verified 03/29/22 02:20 Sulfa (Sulfonamide Allergy Hives Verified 03/29/22 02:20 Antibiotics) hydromorphone HCl * AdvReac Respiratory Verified 03/29/22 02:20 [From Dilaudid] simvastatin AdvReac weakness, Verified 03/29/22 02:20 can't walk - Social History Does the pt smoke?: No Smoking Status: Never smoker Does the pt drink ETOH?: No Does the pt have substance abuse?: No - Immunizations Immunizations are current?: Yes - POLST Patient has POLST: No PD ED PE NORMAL - Vitals Vital signs reviewed: Yes - General General: Alert and oriented X 3, No acute distress, Well developed/nourished - HEENT HEENT: Moist mucous membranes - Neck Neck: Supple, no meningeal sign - Cardiac Cardiac: RRR, No murmur - Respiratory Respiratory: No respiratory distress, Clear bilaterally - Abdomen Abdomen: Normal bowel sounds, Soft, Non tender, Non distended - Back Back: No CVA TTP - Derm Derm: Normal color, Warm and dry - Extremities Extremities: No edema Results - Vitals Vitals: Oxygen O2 Source Room air - EKG (time done) No standard instances Rate: Rate (enter#) (85) Rhythm: NSR [place]: LAD Intervals: Normal GA QRS: Normal Ischemia: Normal ST segments, Q waves (III, aVF) - Labs Labs: Laboratory Tests 03/29/22 03/29/22 03/29/22 02:35 02:36 02:36 WBC 10.8 RBC 4.78 Hgb 14.6 Hct 45.0 MCV 94.1 H MCH 30.5 MCHC 32.4 RDW 15.3 H Plt Count 258 MPV 10.2 Neut # (Auto) 7.4 H Lymph # (Auto) 2.2 [place] # (Auto) 1.0 Eos # (Auto) 0.2 Baso # (Auto) 0.0 Absolute Nucleated RBC 0.00 Nucleated RBC % 0.0 Sodium 141 Potassium 3.7 Chloride 99 L Carbon Dioxide 31 Anion Gap 11.0 BUN 33 H Creatinine 1.6 H Estimated GFR (MDRD) 42 L Glucose 148 H Calcium 10.0 Total Bilirubin 0.9 AST 25 ALT 31 Alkaline Phosphatase 38 L Troponin I High Sens Total Protein 7.9 Albumin 4.0 Globulin 3.9 Albumin/Globulin Ratio 1.0 Lipase 30 Urine Color YELLOW Urine Clarity HAZY Urine pH 7.5 Ur Specific [place] 1.020 Urine Protein NEGATIVE Urine Glucose (UA) NEGATIVE Urine Ketones NEGATIVE Urine Occult Blood NEGATIVE Urine Nitrite NEGATIVE Urine Bilirubin NEGATIVE Urine Urobilinogen 0.2 (NORMAL) Ur Leukocyte Esterase NEGATIVE Urine RBC 0-5 Urine WBC 0-3 Ur Squamous Epith Cells FEW Squamous Amorphous Sediment Few Urine Bacteria Rare Ur Microscopic Review INDICATED Urine Culture Comments NOT INDICATED 03/29/22 02:36 WBC RBC Hgb Hct MCV MCH MCHC RDW Plt Count MPV Neut # (Auto) Lymph # (Auto) [place] # (Auto) Eos # (Auto) Baso # (Auto) Absolute Nucleated RBC Nucleated RBC % Sodium Potassium Chloride Carbon Dioxide Anion Gap BUN Creatinine Estimated GFR (MDRD) Glucose Calcium Total Bilirubin AST ALT Alkaline Phosphatase Troponin I High Sens 8.5 Total Protein Albumin Globulin Albumin/Globulin Ratio Lipase Urine Color Urine Clarity Urine pH Ur Specific [place] Urine Protein Urine Glucose (UA) Urine Ketones Urine Occult Blood Urine Nitrite Urine Bilirubin Urine Urobilinogen Ur Leukocyte Esterase Urine RBC Urine WBC Ur Squamous Epith Cells Amorphous Sediment Urine Bacteria Ur Microscopic Review Urine Culture Comments - Rads (name of study) chest xray Radiology: Prelim report reviewed, See rad report PD MEDICAL DECISION MAKING - ED course Complexity details: reviewed old records, reviewed results, re-evaluated patient, considered differential, d/w patient, d/w family ED course: no concerning findings on tonight's tests including chest xray, EKG, and blood tests. Elevated bun/creatinine, with creatinine 1.6 which is slightly elevated over previous and demonstrates slow upward trend that can be followed in outpati ent setting. He has high blood pressures in ED and after discussion regarding options for short-term BP control (and considering various reactions patient and describe to previous anti-hypertensives), will trial short course of clonidine. He has scheduled appointment in few days with PMD Departure - Departure Disposition: Home, Self Care Clinical Impression: Abdominal pain Qualifiers: Abdominal location: upper abdomen, unspecified Qualified Code(s): R10.10 - Upper abdominal pain, unspecified Chest pain Qualifiers: Chest pain type: unspecified Qualified Code(s): R07.9 - Chest pain, unspecified Hypertension Qualifiers: Hypertension type: unspecified Qualified Code(s): I10 - Essential (primary) hypertension Condition: Good Instructions: ED Chest Pain Atypical Unkn Cause, ED Hypertension Poss, ED Abdominal Pain Unkn Cause Male Prescriptions: cloNIDine [Catapres] 0.2 mg PO BID #10 tablet Comments: The results of tonight's tests do not reveal the cause of your symptoms. Your kidney function tests are abnormal, but comparable to previous results. Overall, the kidney tests have worsened very slowly since the beginning of this year, and you should follow up with your primary care provider for reevaluation. Your blood pressures were quite high in the emergency department tonight. Rather than starting you on a blood pressure medication long-term, I have provided a prescription for a few days of blood pressure medication. Discharge Date/Time: 03/29/22 04:57
[2022-03-29] MEDS ORDERED: cloNIDine 0.1 MG TABLET PO STA (04:41)
[2022-03-29] MEDS ORDERED: ACETAMINOPHEN 325 MG TABLET PO STA (04:42)
[2022-03-29 04:53] VITALS: BP 210/93
== END 2022-03-29 04:57 | disposition home or self-care (01) ==
LOC: ED 02:06
DX: R10.10 Upper abdominal pain, unspecified (principal); R07.9 Chest pain, unspecified; I10 Essential (primary) hypertension; R79.89 Other specified abnormal findings of blood chemistry
CPT/HCPCS: 36415; 80053; 81001; 83690; 84484; 85025; 93005; 99284; A9270; 81003; 87086